=== PATIENT | female | born 1960 | race Caucasian/White ===

== ENCOUNTER 2017-01-31 10:15 | Outpatient (CLI) | payer OTHER | END 2017-01-31 10:16 | disposition home or self-care (01) | LOC: LAB.WCP 10:15 | PROVIDERS: ATTEND Family Medicine | DX: J02.9 Acute pharyngitis, unspecified (principal) | CPT/HCPCS: 87070 ==

== ENCOUNTER 2018-02-21 14:49 | Outpatient (CLI) | payer OTHER ==
[2018-02-21 19:46] LABS: BASOPHILS # (AUTO) 0.1 10^3/uL (0.0-0.1); EOSINOPHILS # (AUTO) 0.1 10^3/uL (0.0-0.7); HGB - HEMOGLOBIN 14.3 g/dL (12.0-16.0); LYMPHOCYTES # (AUTO) 2.7 10^3/uL (1.5-3.5); LYMPHOCYTES % (AUTO) 40.2 %; MEAN CORPUSCULAR HEMOGLOBIN 31.3 pg (27.0-31.0); MEAN CORPUSCULAR HGB CONC 33.9 g/dL (32.0-36.0); MEAN CORPUSCULAR VOLUME 92.4 fL (81.0-99.0); MEAN PLATELET VOLUME 8.5 fL (7.9-10.8); MONOCYTES # (AUTO) 0.6 10^3/uL (0.0-1.0); MONOCYTES % (AUTO) 8.9 %; NEUTROPHILS # (AUTO) 3.3 10^3/uL (1.5-6.6); NEUTROPHILS % (AUTO) 47.9 %; PLT - PLATELET COUNT 247 10^3/uL (130-450); RED BLOOD COUNT 4.55 10^6/uL (4.20-5.40); RED CELL DISTRIBUTION WIDTH 14.3 % (12.0-15.0); WHITE BLOOD COUNT 6.8 x10^3/uL (4.8-10.8)
[2018-02-21 19:58] LABS: ALBUMIN 4.3 g/dL (3.2-5.5); ALBUMIN/GLOBULIN RATIO 1.5 (1.0-2.2); ALKALINE PHOSPHATASE 55 IU/L (42-121); ALT ALANINE AMINOTRANSFERASE 24 IU/L (10-60); AST ASPARTATE AMINOTRANSFERASE 25 IU/L (10-42); BILIRUBIN,TOTAL 0.5 mg/dL (0.2-1.0); BUN - BLOOD UREA NITROGEN 15 mg/dL (6-20); CALCIUM 9.8 mg/dL (8.5-10.3); CARBON DIOXIDE - CO2 29 mmol/L (21-32); CHLORIDE 105 mmol/L (101-111); CHOL/HDL RATIO 4.1 (<4.4); CHOLESTEROL 194 mg/dL; CREATININE 0.9 mg/dL (0.4-1.0); GFR - MDRD 64 (>89); GLUCOSE 83 mg/dL (70-100); HDL CHOLESTEROL 47 mg/dL; LDL CHOLESTEROL,CALCULATED 117 mg/dL; LDL/HDL RATIO 2.5 (<4.4); SODIUM 140 mmol/L (135-145); TOTAL PROTEIN 7.2 g/dL (6.7-8.2); VLDL CHOLESTEROL 30 mg/dL
== END 2018-02-21 14:50 | disposition home or self-care (01) ==
LOC: LAB.WCP 14:49
PROVIDERS: ATTEND Family Medicine
DX: Z00.00 Encounter for general adult medical examination without abnormal findings (principal)
CPT/HCPCS: 36415; 80053; 80061; 83721; 84443; 85025

== ENCOUNTER 2018-03-19 13:53 | Outpatient (CLI) | payer OTHER ==
--- NOTE | 2018-03-20 13:39 | Mammography Report ---
Reason: SCREENING MAMMO Procedure Date: 03/19/2018 Accession Number: [id number] / [id number] Procedure: [facility] - Screening Mammo w/Reginald CPT Code: FULL RESULT: EXAM: Screening Mammo w/Reginald DATE: 03/19/2018 2:28 PM CLINICAL HISTORY: Routine screening TECHNIQUE: Bilateral CC and MLO views were obtained. COMPARISON: 04/13/2016, 04/25/2014, 04/13/2014, 04/19/2013 and 04/24/2012 FINDINGS: There are scattered fibroglandular densities. There is no significant interval change. No suspicious masses, clustered microcalcifications, or regions of architectural distortion are identified. Nodular densities right more numerous than left appears stable compared with priors. IMPRESSION: Benign findings RECOMMENDATION: Routine annual screening unless otherwise clinically indicated. BIRADS CATEGORY 2: Benign findings STANDARD QUALIFYING STATEMENTS: 1. This examination was not reviewed with the aid of Computer-Aided Detection (CAD). 2. A negative or benign imaging report should not delay biopsy if clinically suspicious findings are present. Consider surgical consultation if warrented. More than 5% of cancers are not identified by imaging. 3. Dense breasts may obscure an underlying neoplasm. 4. This examination was reviewed with the aid of 3D breast imaging (tomosynthesis).
== END 2018-03-19 13:54 | disposition home or self-care (01) ==
LOC: DI 13:53
DX: Z12.31 Encounter for screening mammogram for malignant neoplasm of breast (principal)
CPT/HCPCS: 77063; 77067

== ENCOUNTER 2018-04-05 12:09 | Outpatient (CLI) | payer OTHER ==
--- NOTE | 2018-04-05 14:19 | CT Report ---
Reason: NICOTINE ABUSE/DEPENDENCE Procedure Date: 04/05/2018 Accession Number: [id number] / [id number] Procedure: CT - Chest/Lung Screen Low Dose W/O CPT Code: FULL RESULT: EXAM CT LUNG SCREEN EXAM DATE: 04/05/2018 12:31 PM. HISTORY: 58-year-old patient with 28-[id number]-aocs smoking history. Currently smoking: Yes. COMPARISON: Chest with contrast 11/07/2014 12:26 PM. TECHNIQUE: CT examination of the entire thorax without contrast was performed using low-dose technique. Thin section coronal, axial, sagittal and MIP axial images were obtained. In accordance with CT protocol optimization, one or more of the following dose reduction techniques were utilized for this exam: automated exposure control, adjustment of mA and/or KV based on patient size, or use of iterative reconstructive technique. FINDINGS: Nodules: Right upper lobe: None. Right middle lobe: None. Right lower lobe: None. Left upper lobe: None. Left lower lobe: None. Emphysema: None. Pleura: Unremarkable. Aorta: Scant calcifications. Mediastinum: Unremarkable. Coronary calcifications: Mild. Other pulmonary findings: None. Other extrapulmonary findings: None. IMPRESSION: Lung-RADS ASSESSMENT CATEGORY: 0 - negative. Probability of malignancy: Not applicable. RECOMMENDATION: Recommended follow up based on Lung-RADS guidelines. RADIA
== END 2018-04-05 12:10 | disposition home or self-care (01) ==
LOC: DI 12:09
PROVIDERS: ATTEND Family Medicine
DX: Z12.2 Encounter for screening for malignant neoplasm of respiratory organs (principal); F17.210 Nicotine dependence, cigarettes, uncomplicated

== ENCOUNTER 2019-03-05 07:00 | Outpatient (CLI) | payer OTHER ==
[2019-03-05 12:27] LABS: BASOPHILS # (AUTO) 0.1 10^3/uL (0.0-0.1); BASOPHILS % (AUTO) 0.8 %; EOSINOPHILS # (AUTO) 0.2 10^3/uL (0.0-0.7); EOSINOPHILS % (AUTO) 3.1 %; HGB - HEMOGLOBIN 14.7 g/dL (12.0-16.0); LYMPHOCYTES # (AUTO) 1.6 10^3/uL (1.5-3.5); LYMPHOCYTES % (AUTO) 26.8 %; MEAN CORPUSCULAR HEMOGLOBIN 30.2 pg (27.0-31.0); MEAN CORPUSCULAR HGB CONC 31.5 g/dL (32.0-36.0); MEAN CORPUSCULAR VOLUME 95.9 fL (81.0-99.0); MEAN PLATELET VOLUME 10.4 fL (7.9-10.8); MONOCYTES # (AUTO) 0.6 10^3/uL (0.0-1.0); MONOCYTES % (AUTO) 9.3 %; NEUTROPHILS # (AUTO) 3.6 10^3/uL (1.5-6.6); NEUTROPHILS % (AUTO) 59.7 %; PLT - PLATELET COUNT 272 10^3/uL (130-450); RED BLOOD COUNT 4.86 10^6/uL (4.20-5.40); RED CELL DISTRIBUTION WIDTH 13.4 % (12.0-15.0); WHITE BLOOD COUNT 6.1 x10^3/uL (4.8-10.8)
[2019-03-05 12:53] LABS: ALBUMIN 4.1 g/dL (3.2-5.5); ALBUMIN/GLOBULIN RATIO 1.3 (1.0-2.2); ALKALINE PHOSPHATASE 56 IU/L (42-121); ALT ALANINE AMINOTRANSFERASE 13 IU/L (10-60); AST ASPARTATE AMINOTRANSFERASE 19 IU/L (10-42); BILIRUBIN,TOTAL 0.6 mg/dL (0.2-1.0); BUN - BLOOD UREA NITROGEN 11 mg/dL (6-20); CALCIUM 9.5 mg/dL (8.5-10.3); CARBON DIOXIDE - CO2 27 mmol/L (21-32); CHLORIDE 105 mmol/L (101-111); CHOL/HDL RATIO 4.9 (<4.4); CHOLESTEROL 188 mg/dL; CREATININE 0.9 mg/dL (0.4-1.0); GFR - MDRD 64 (>89); GLUCOSE 88 mg/dL (70-100); HDL CHOLESTEROL 38 mg/dL; LDL CHOLESTEROL,CALCULATED 129 mg/dL; LDL/HDL RATIO 3.4 (<4.4); SODIUM 142 mmol/L (135-145); TOTAL PROTEIN 7.2 g/dL (6.7-8.2); VLDL CHOLESTEROL 21 mg/dL
[2019-03-05 13:32] LABS: FREE T4 (FREE THYROXINE) 0.82 ng/dL (0.58-1.64)
== END 2019-03-05 23:59 | disposition home or self-care (01) ==
LOC: LAB.WCP 07:00
PROVIDERS: ATTEND Family Medicine
DX: Z00.00 Encounter for general adult medical examination without abnormal findings (principal)
CPT/HCPCS: 36415; 80053; 80061; 83721; 84439; 84443; 85025

== ENCOUNTER 2019-03-16 09:13 | Outpatient (CLI) | payer OTHER ==
--- NOTE | 2019-03-18 03:48 | Ultrasound Report ---
Reason: CAROTID ARTERIAL DISEASE Procedure Date: 03/16/2019 Accession Number: [id number] / [id number] Procedure: US - Carotid Doppler Complete CPT Code: FULL RESULT: EXAM: BILATERAL CAROTID AND VERTEBRAL ARTERY DUPLEX DOPPLER ULTRASOUND EXAM DATE: 03/16/2019 10:14 AM CLINICAL HISTORY: Carotid arterial disease. COMPARISON: None. TECHNIQUE: Grayscale imaging, color Doppler, and duplex spectral Doppler were used to evaluate the carotid and vertebral arteries bilaterally. Static images were obtained. FINDINGS: No significant plaque is identified in the right common or internal carotid arteries. There is a small amount of calcified plaque in the left common carotid artery and carotid bulb. Normal antegrade flow is present in bilateral vertebral arteries. VELOCITIES (cm/sec): Right CCA mid: PSV 69.5 cm/sec CCA dist: PSV 62.0 cm/sec ICA prox: PSV 61.2 cm/sec, EDV 19.5 cm/sec ICA mid: PSV 89.6 cm/sec, EDV 37.0 cm/sec ICA dist: PSV 94.7 cm/sec, EDV 40.5 cm/sec ECA: PSV 94.2 cm/sec Vert: PSV 67.2 cm/sec ICA/CCA: 1.4 Left CCA mid: PSV 52.6 cm/sec CCA dist: PSV 73.7 cm/sec ICA prox: PSV 65.5 cm/sec, EDV 22.8 cm/sec ICA mid: PSV 96.3 cm/sec, EDV 44.3 cm/sec ICA dist: PSV 57.7 cm/sec, EDV 27.0 cm/sec ECA: PSV 115.2 cm/sec Vert: PSV 57.8 cm/sec ICA/CCA: 1.3 ICA diameter stenosis: Right: <50% by velocity and <70% by NASCET criteria. Left: <50% by velocity and <70% by NASCET criteria. IMPRESSION: 1. Mild left carotid artery plaquing. 2. In the right carotid artery there are no elevated carotid artery velocities to suggest hemodynamically significant stenosis. 3. In the left carotid artery there are no elevated carotid artery velocities to suggest hemodynamically significant stenosis. 4. Normal antegrade flow is present in bilateral vertebral arteries. General Recommendations: Stenosis =50% ICA - Follow-up ultrasound 6-12 months Stenosis <50% ICA - High Risk Patient with plaque - Follow-up ultrasound 1-2 years Normal Study but High Risk Patient - Follow-up ultrasound 3-5 years Management recommendations and diagnostic criteria are based on current IAC endorsed standards in Carotid Artery Stenosis: Grayscale and Doppler Ultrasound Diagnosis. Validated velocity measurements with angiographic measurements and velocity criteria are extrapolated from diameter data as defined by the Society of Radiologists in Ultrasound Consensus Conference Radiology 2003; 229;340-346. RADIA
== END 2019-03-16 09:14 | disposition home or self-care (01) ==
LOC: DI 09:13
PROVIDERS: ATTEND Family Medicine
DX: I77.9 Disorder of arteries and arterioles, unspecified (principal); F17.200 Nicotine dependence, unspecified, uncomplicated
CPT/HCPCS: 93880

== ENCOUNTER 2019-03-26 09:43 | Outpatient (CLI) | payer OTHER ==
--- NOTE | 2019-03-26 11:39 | Mammography Report ---
Reason: SCREENING MAMMO Procedure Date: 03/26/2019 Accession Number: [id number] / [id number] Procedure: [facility] - Screening Mammo w/Reginald CPT Code: FULL RESULT: EXAM: Screening Mammo w/Reginald DATE: 03/26/2019 10:13 AM CLINICAL HISTORY: Routine screening TECHNIQUE: (B) - Bilateral CC and MLO views were obtained. COMPARISON: 03/19/2018, 04/13/2016, 04/14/2015, 04/25/2014, 04/19/2013, 04/24/2012, 12/21/2011, 04/18/2011 and 04/15/2010 PARENCHYMAL PATTERN: (A) - The breasts demonstrate scattered fibroglandular densities bilaterally. FINDINGS: No significant interval change. There are no suspicious masses, calcifications, or areas of distortion. IMPRESSION: Negative examination. BI-RADS category 1. RECOMMENDATION: (ANNUAL) - Recommend routine annual screening mammography. BI-RADS CATEGORY: (1) - Negative. STANDARD QUALIFYING STATEMENTS: 1. This examination was not reviewed with the aid of Computer-Aided Detection (CAD). 2. A negative or benign imaging report should not preclude biopsy if clinically suspicious findings are present. 3. Dense breasts may obscure an underlying neoplasm. 4. This examination was reviewed with the aid of 3D breast imaging (tomosynthesis).
== END 2019-03-26 09:44 | disposition home or self-care (01) ==
LOC: DI 09:43
DX: Z12.31 Encounter for screening mammogram for malignant neoplasm of breast (principal)
CPT/HCPCS: 77063; 77067

== ENCOUNTER 2019-04-02 07:36 | Outpatient (CLI) | payer OTHER ==
--- NOTE | 2019-04-02 16:10 | CT Report ---
Reason: NICOTINE ABUSE/DEPENDENCE Procedure Date: 04/02/2019 Accession Number: [id number] / [id number] Procedure: CT - Low Dose Lung Cancer Screen CPT Code: Final Report FULL RESULT: EXAM CT LUNG SCREEN EXAM DATE: 04/02/2019 07:54 AM. HISTORY: 59-year-old patient with 87-enkv-able smoking history. Currently smoking: Yes. COMPARISON: Chest screen low dose w/o 04/05/2018 12:23 PM. TECHNIQUE: CT examination of the entire thorax without contrast was performed using low-dose technique. Thin section coronal, axial, sagittal and MIP axial images were obtained. In accordance with CT protocol optimization, one or more of the following dose reduction techniques were utilized for this exam: automated exposure control, adjustment of mA and/or KV based on patient size, or use of iterative reconstructive technique. FINDINGS: Nodules: Right upper lobe: 5 mm right apical nodule image 25 series 4. 3 mm nodule image 36. 3 mm nodule image 59. Right middle lobe: None. Right lower lobe: 2 mm nodule image 72. Left upper lobe: 3 mm nodule image 69. Left lower lobe: 3 mm nodule image 65. Emphysema: Mild. Pleura: Unremarkable. Aorta: Scant calcifications. Mediastinum: Unremarkable. Coronary calcifications: Mild. Other pulmonary findings: None. Other extrapulmonary findings: None. IMPRESSION: Lung-RADS ASSESSMENT CATEGORY: 2 - benign appearance or behavior. Probability of malignancy: Less than 1%. RECOMMENDATION: Continue annual low-dose chest CT. RADIA
== END 2019-04-02 07:37 | disposition home or self-care (01) ==
LOC: DI 07:36
PROVIDERS: ATTEND Family Medicine
DX: Z12.2 Encounter for screening for malignant neoplasm of respiratory organs (principal); F17.200 Nicotine dependence, unspecified, uncomplicated

== ENCOUNTER 2019-05-20 14:19 | Outpatient (CLI) | payer OTHER ==
[2019-05-20 22:28] VITALS: BP 136/96
--- NOTE | 2019-05-20 22:28 | SLEEP CARE CONSULTATION ---
Information from patient questionnaire entered by Juana Brantley. I have reviewed and concur with the information entered by Juana Brantley. This document represents the service I personally performed and the decisions made by me, Maria Luisa Maldonado MD, [facility]. History of Present Illness Reason for Visit: New patient, Previously diagnosed sleep apnea, Re-establish care Additional HPI information: I had the pleasure of seeing Ms. Baird and her boyfriend today regarding the possibility of her having a sleep disorder. As you know, she is a 48-year-old lady who complains of insomnia, snoring, frequent awakenings at night, unrefreshed sleep, excessive daytime sleepiness and fatigue. She had an in- laboratory polysomnography here in 2008 that showed mild obstructive sleep apnea-hypopnea (AHI was 6.6). She was prescribed a CPAP set at 10 cmH2O. She used it occasionally and stopped in 2010 due to claustrophobia. She has [employer]Med AirFit P-10 nasal pillows. She restarted December of this year. She quit again after a month because of tooth infection. She did not feel significantly better on the treatment. [employer] was her durable medical supplier. Without the CPAP, she continues to snore. She complains of fatigue. However, she sleeps alone. Subjective Initial [place] Sleepiness Scale score: 10 Past Medical History Past Medical History: reports: Anxiety, GERD Social History The patient's occupation is a [employer] [place]. Patient is Single and lives in [place]. Allergies and Home Medications Drug allergies reviewed: Yes Home medication list reviewed: Yes Allergy and home medication list: Current Medications: famotidine Allergies: no known drug allergies Review of Systems Cardiovascular: denies: high blood pressure, palpitations, chest pain, irregular heart rate or pulse, leg or foot swelling, have to sleep sitting up, other Respiratory: denies: shortness of breath, wheeze, sputum production, chronic cough, other Urinary: denies: incontinence, frequency, urgency, impotence, other Neurological: denies: headaches, seizure, head trauma, disorientation, speech dysfunction, gait or balance problems, fainting or unconsciousness, other Ear/Nose/Throat: denies: nasal congestion, sinus problems, nose bleeds, dry mouth/throat, hoarseness, injury to nose, tonsillectomy, wisdom teeth removed, other Endocrine: denies: thyroid disease, history of goiter, sluggishness, too hot or cold, excessive thirst, increased appetite, increased urination, unexplained weakness, other Musculoskeletal: denies: joint pain, neck pain, back pain, joint swelling, muscle pain or cramping, mobility problems, other Immunologic: denies: sneezing, rash, itching, allergies to food or environment, other Physical Exam Vital signs obtained and entered by: Dr. Maldonado Blood Pressure: 136/96 Cuff size: regular Heart Rate: 73 O2 Saturation: 97 Height: 5 ft 4 in Weight: 163 lb Body Mass Index: 27.9 BMI Classification: Overweight Neck circumference: 16 Mood/affect: normal HEENT: No craniofacial malformation Nostrils: patent to airflow Turbinates: normal Septum: midline Mouth and throat: narrow oropharynx Soft palate: long Hard palate: normal Uvula: normal Uvula visualization: 50% Mallampati Class II Tongue: normal in size Tonsils: small Chin and jaw: normal size and position Neck: normal w/o lymphadenopathy or thyromegaly Heart: regular rate and rhythm Lungs: clear bilaterally Abdomen: soft, non-tender Extremities: no edema or clubbing Neurologic: intact, no focal deficits Impression and Plan IMPRESSION: 1. Obstructive Sleep Apnea-Hypopnea Syndrome, mild, as previously diagnosed, presently untreated. She no longer gets supplies from [employer]. She continues to snore. I will repeat the in-laboratory polysomnography to see if she needs to use CPAP again. Plan: 1. Schedule polysomnography 2. Avoid long distance driving or when feeling sleepy. 3. Avoid alcohol, sedative and muscle relaxant around bedtime. 4. Attempt to lose weight. 5. Return for followup after the sleep study. I spent 100% of this visit face to face with the patient with greater than 50% of this was spent time counseling the patient and coordination of care.
== END 2019-05-20 14:20 | disposition home or self-care (01) ==
LOC: SC 14:19
PROVIDERS: ATTEND Internal Medicine Pulmonary Disease
DX: G47.33 Obstructive sleep apnea (adult) (pediatric) (principal)
CPT/HCPCS: 99203; 99212

== ENCOUNTER 2019-06-14 20:24 | Outpatient (CLI) | payer OTHER | END 2019-06-14 20:25 | disposition home or self-care (01) | LOC: SC 20:24 | PROVIDERS: ATTEND Internal Medicine Pulmonary Disease | DX: G47.33 Obstructive sleep apnea (adult) (pediatric) (principal) | CPT/HCPCS: 95810 ==

== ENCOUNTER 2019-07-15 09:10 | Outpatient (CLI) | payer OTHER ==
[2019-07-15 10:24] VITALS: BP 120/72
--- NOTE | 2019-07-15 10:24 | SLEEP CARE CONSULTATION ---
Information from patient questionnaire entered by Arlet Estes. I have reviewed and concur with the information entered by Arlet Estes. This document represents the service I personally performed and the decisions made by me, Evy Jackson, RN, MSN, MARKET SURVEY REPRESENTATIVE. History of Present Illness Reason for follow up: with sleep study (to restart therapy) Equipment type: CPAP Equipment obtained from: [facility] (stopped getting equipment several years ago) Prior sleep studies: Yes HPI additional information: DAHLIA MISHRA returns with partner for follow up and results of the recently performed polysomnography. I explained the pathophysiology behind obstructive sleep apnea. We then spent quite a bit of time discussing different treatment options. For mild obstructive sleep apnea, surgery and oral appliance are alternatives to nasal CPAP therapy but in moderate or severe cases, nasal CPAP is the most effective and reliable treatment. I reviewed the impact of weight changes on sleep apnea and strongly recommended losing weight. After some discussion, the patient opted to go with the nasal CPAP therapy. Nasal autoCPAP set at [id number] will be ordered with rationale explained. A manual titration study will be ordered if unable to find optimal pressure with office adjustments. I explained how CPAP machine works with sample devices [employer] Dreamstation and [employer] [id number] and what to expect when using the machine. Using CPAP every night in order to get used to it was emphasized. Patient advised to put CPAP mask on before getting into bed so as not to fall asleep without CPAP. To assist acclimation to CPAP use, it could also be used for a short time during day while reading or watching TV. The patient was instructed to call the CPAP supplier to discuss any mechanical problem that may occur. If the mask given is uncomfortable or is difficult to keep on through the night even with adjustment, contact the CPAP supplier as many will replace with another mask style if notified before 30 days. If snoring or perceives is not getting enough air or too much air from the machine, notify this office. AAS patient education PAP tips reviewed and given to patient. Dreamstation preferred by patient. Patient counseled not drink alcohol less than 4 hours before bedtime as it can increase snoring and apnea. Patient was cautioned about risks of drowsy driving until sleepiness symptoms resolve. Patient denies drowsy driving. AAS patient education on snoring and sleep apnea reviewed. Sleep Study - Results Polysomnography/Home Sleep Study results: The quality of the study is good. The patient had slightly reduced sleep efficiency due to frequent awakenings after the sleep onset. The sleep architecture was abnormal for sleep fragmentation and reduced amount of time spent in slow wave sleep (N3). Respiratory monitoring showed moderate obstructive sleep apnea-hypopnea (AHI = 18.2) associated with frequent arousals, oxyhemoglobin desaturation and moderate hypoxia (jumana oxygen saturation of 77%). Baseline oxygen saturation was normal. The respiratory events occurred mainly during supine sleep (supine AHI = 33.8; non-supine = 10.82). Snore was loud in intensity. There was no significant periodic leg movement of sleep. Cardiac rhythm was normal sinus rhythm without significant arrhythmia. No abnormal behavior (parasomnia) observed during the night. Subjective Initial [place] Sleepiness Scale score: 10 Current [place] Sleepiness Scale score: 9 Allergies and Home Medications Known drug allergies: No Home medication list reviewed: Yes (zantac stopped) Allergy and home medication list: famotidine twice daily as needed trazadone prn insomnia from anxiety Review of Systems Review of systems same as previous: No (dental implant in process ) Physical Exam Blood Pressure: 120/72 Cuff size: regular Heart Rate: 93 O2 Saturation: 98 Height: 5 ft 4 in Weight: 168 lb 9.6 oz Body Mass Index: 28.9 BMI Classification: Overweight Impression and Plan 1. Obstructive Sleep Apnea-Hypopnea Syndrome, moderate, with lowest oxygen saturation of 77%. Obviously this is the cause of the patients symptoms of unrefreshed sleep, and excessive daytime sleepiness. Positive pressure therapy could benefit GERD . As mentioned above, the patient will be started on nasal autoCPAP therapy with pressure set at 4-15 cmH2O. A manual titration study will be completed if unable to find optimal treatment pressure with office ad justments. Compliance guidelines also reviewed. A copy of compliance guidelines will be given for reference at check out. Because the apnea is more severe supine, I instructed to avoid sleeping supine using pillow positioning until able to start CPAP use. * Nasal auto CPAP therapy, pressure at 4-15 cm H2O. * Attempt to lose weight. * Avoid alcohol consumption near bedtime. * Avoid supine sleep until using CPAP. * The patient is again cautioned about driving until sleepiness completely resolves. * Return one month after CPAP obtained. I will assess response to therapy and compliance at that time. Time Spent with Patient (minutes): 35 I spent 100% of this visit face to face with the patient with greater than 50% of this was spent time counseling the patient and coordination of care.
== END 2019-07-15 09:11 | disposition home or self-care (01) ==
LOC: SC 09:10
PROVIDERS: ATTEND Nurse Practitioner Family
DX: G47.33 Obstructive sleep apnea (adult) (pediatric) (principal); E66.3 Overweight; Z68.28 Body mass index [BMI] 28.0-28.9, adult
CPT/HCPCS: 99212; 99214

== ENCOUNTER 2019-09-16 16:56 | Outpatient (CLI) | payer OTHER ==
--- NOTE | 2019-09-16 11:30 | SLEEP CARE CONSULTATION ---
Information from patient questionnaire entered by Arlet Estes. I have reviewed and concur with the information entered by Arlet Estes. This document represents the service I personally performed and the decisions made by me, Evy Jackson, RN, MSN, RADIAL SAW OPERATOR. History of Present Illness Service Date and Time: 09/16/2019 1100 Previous diagnosis: Moderate, Obstructive Sleep Apnea-Hypopnea Syndrome AHI: 18.2 Reason for follow up: first compliance (after restarting CPAP -stopped in 2010) Equipment obtained from: [employer] Mask style: Nasal pillows (Dreamwear) Backup mask available: No (keep current as a spare) Last cushion change: none since set up Prior sleep studies: Yes Type of Sleep Study: Polysomnography CPAP Compliance Data - Data Reviewed with Patient Average duration of nightly device use: 5h 42m Compliance rate %: 80 Current pressure setting (cmH2O): 4-15 Humidity settin Heated hose settin Average residual AHI: 6.1 (mean 6.7cm and 90% 8.9cmH20) Central apnea: 1.6 Obstructive apnea: 1.1 Hypopnea: 3.4 Average large leak: 6s Subjective Missed days of use due to: reports: illness Patient concerns: reports: nasal congestion (slight before bed), dry mouth, nose, throat (a couple times a week ). denies: aerophagia, mask discomfort, air blowing in eyes, mask leak noise, condensation in mask/hose, epistaxis, other Observed to snore while using device: No Current pressure setting perceived as: comfortable On therapy, patient: reports: sleeping better, more rested overall (and healthier feeling). denies: drowsiness while driving Initial [place] Sleepiness Scale score: 10 Current [place] Sleepiness Scale score: 4 Allergies and Home Medications Home medication list reviewed: No (no changes stated) Review of Systems Review of systems same as previous: Yes Physical Exam Height: 5 ft 4 in Impression and Plan 1. Obstructive Sleep Apnea-Hypopnea Syndrome, moderate, with good treatment compliance and slightly elevated AHI ap. On CPAP therapy, the patient has better sleep quality and is more rested overall. The patients pressure will be changed to autoCPAP 7-15 cmH20 For elevation of residual AHI. Patient advised to contact me if pressure change is uncomfortable so that it can be adjusted. She was also instructed how to use the ramp feature at initiation of treatment if needed. Goals for apnea control discussed. Nasal congestion can be reduced with increasing the CPAP humidity as shown on sample device. The heated hose can be adjusted higher if condensation with higher humidity setting. Saline nasal spray sample was also given to use prior to CPAP to clear nasal secretions and wash off any nasal allergens to facilitate nasal breathing. In addition, a steamy shower before bed will often assist nasal drainage. Patient instructed how to change the humidity settings verbally. She was advised to check the manual for reference or contact [facility] if unable to change settings as discussed. In addition the importance of changing her nasal pillows regularly for comfort / seal was discussed. She has a supply replacement sheet from [employer] and has number to call. Patient's apnea severity and rationale for treatment to reduce apnea, improve sleep quality and reduce hypertension, cardiovascular and cerebrovascular events was reviewed. Since supine apnea is severe supine and mild non supine, she is advised to avoid supine sleep with pillow positioning if unable to use CPAP. I also discussed how her weight affects her apnea risk and CPAP pressure requirements. * Change CPAP pressure to 7-15 cmH2O * Implement methods to reduce nasal congestion. * Notify me if snoring with mask or feeling that the pressure is too much or too little * Do not gain weight * Call this office if any problems using CPAP * Return for follow up in 3 months , or sooner if concerns arise Visit Type: Telehealth Phone (to minimize the risk of COVID 19 exposure and agrees to have insurance billed.) Patient Location: Home Location of Provider: Home Patient agrees and consents to this telehealth visit type: Yes Time Spent with Patient (minutes): 23 Provider Statement: I spent 100% of the Telehealth Phone Call with the patient with greater than 50% spent counseling the patient and coordination of care.
== END 2019-09-16 16:57 | disposition home or self-care (01) ==
LOC: SC 16:56
PROVIDERS: ATTEND Nurse Practitioner Family
DX: G47.33 Obstructive sleep apnea (adult) (pediatric) (principal)

== ENCOUNTER 2019-11-24 09:47 | Outpatient (CLI) | payer OTHER | END 2019-11-24 09:48 | disposition critical access hospital (66) | LOC: EMS 09:47 | PROVIDERS: ATTEND Surgery | DX: S99.912A Unspecified injury of left ankle, initial encounter (principal); W01.0XXA Fall on same level from slipping, tripping and stumbling without subsequent striking against object, initial encounter; Y93.01 Activity, walking, marching and hiking; Y92.008 Other place in unspecified non-institutional (private) residence as the place of occurrence of the external cause | CPT/HCPCS: A0425; A0427 ==

== ENCOUNTER 2019-11-24 10:02 | Day surgery (SDC) | payer OTHER ==
--- NOTE | 2019-11-24 10:21 | ED Physician Documentation ---
PD HPI LOWER EXT INJURY - Stated complaint Stated Complaint: ANKLE FX - Chief complaint Chief Complaint: Trauma Ext - History obtained from History obtained from: Patient, EMS - History of Present Illness PD HPI LOW EXT INJURY LOCATION: Left, Ankle Type of injury: Fall Where injury occurred: Home Timing - onset: Today Timing - duration: Minutes Timing - details: Abrupt onset, Still present Improved by: Rest, Immobilization Worsened by: Moving, Palpating Associated symptoms: Swelling. No: Weakness, Numbness, Tingling Contributing factors: No: Anticoagulated Similar symptoms before: Has not had sx before Recently seen: Not recently seen - Additional information Additional information: Previously well 59-year-old female went out onto her deck this morning and forgot that she had taken away a a 4 foot x 6 foot section of her deck to get to access her hot tub. She fell into this hole which goes down about 4 feet. She felt that she hit her ankle on the deck itself when she was falling into the hole and she is injured both her right elbow and her left ankle she noted her left ankle was deformed and she crawled into her house after crawling out of the hole was able to get her son to call the ambulance to bring her to the hospital. She reports that she has not been ill recently and was having a normal morning when this occurred. She really just wanted to shoo the crows away and have another cup of coffee. Review of Systems Constitutional: denies: Fever Eyes: denies: Decreased vision Ears: denies: Ear pain Nose: denies: Rhinorrhea / runny nose, Congestion Throat: denies: Sore throat Cardiac: denies: Chest pain / pressure, Palpitations Respiratory: denies: Dyspnea, Cough GI: denies: Abdominal Pain, Nausea, Vomiting, Constipation, Diarrhea : denies: Dysuria, Frequency PD PAST MEDICAL HISTORY - Past Medical History Past Medical History: Yes Cardiovascular: None Respiratory: Sleep apnea, CPAP use Endocrine/Autoimmune: None GI: GERD : None HEENT: None Psych: Anxiety Musculoskeletal: None Derm: None - Past Surgical History Past Surgical History: Yes 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, Tubal ligation - Present Medications Home Medications: Ambulatory Orders Medication Instructions Recorded Confirmed Ibuprofen [Advil] 200 mg PO Q24HR@2100 05/19/14 11/07/14 Omeprazole [Prilosec] 20 mg PO DAILY 05/19/14 11/07/14 Hydrocodone/Acetaminophen 1 - 2 each PO Q6H PRN #15 tablet 11/07/14 [Hydrocodon-Acetaminophen 5-325] Naproxen [Naprosyn] 500 mg PO BID #20 tablet 11/07/14 - Allergies Allergies/Adverse Reactions: Allergies Allergy/AdvReac Type Severity Reaction Status Date / Time No Known Drug Allergies Allergy Verified 11/24/19 10:08 - Social History Does the pt smoke?: Yes Smoking Status: Current every day smoker Does the pt drink ETOH?: Yes Does the pt have substance abuse?: No - Immunizations Immunizations: TDAP >10years/unknown - POLST Patient has POLST: No PD ED PE NORMAL - Vitals Vital signs reviewed: Yes (hypertensive mild ) - General General: Alert and oriented X 3, No acute distress, Well developed/nourished - HEENT HEENT: Atraumatic, PERRL, EOMI, Other (no pain to deep palpation of the entire skull and cervical spine. ) - Neck Neck: Supple, no meningeal sign, No bony TTP - Respiratory Respiratory: No respiratory distress, Other (no chest wall tenderness) - Abdomen Abdomen: Soft, Non tender - Back Back: No CVA TTP, No spinal TTP - Derm Derm: Normal color, Warm and dry, No rash - Extremities Extremities: Other (There is fracture deformity to the left ankle with the foot deviated laterally and swelling both medial and lateral. Distal neurovascular components are intact.) - Neuro Neuro: Alert and oriented X 3, firmware engineer 2-12 intact, No motor deficit, No sensory deficit, Normal speech Eye Opening: Spontaneous Motor: Obeys Commands Verbal: Oriented GCS Score: 15 - Psych Psych: Normal mood, Normal affect Results - Vitals Vitals: Vital Signs - 24 hr 11/24/19 11/24/19 11/24/19 10:09 10:13 12:13 Temperature 36.5 C 36.5 C Heart Rate 82 82 86 Respiratory 16 16 16 Rate Blood Pressure 127/84 H 127/84 H 145/85 H O2 Saturation 100 100 96 Oxygen O2 Source Room air - Rads (name of study) ankle Radiology: Prelim report reviewed (Impression: Comminuted distal fibular fracture extending to articular surface, displaced medial malleolus fracture, disruption of ankle mortise. ), EMP read indepedently, See rad report Elbow Radiology: Prelim report reviewed (Impression: No acute bony abnormality of the right elbow.), EMP read indepedently, See rad report PD MEDICAL DECISION MAKING - ED course Complexity details: reviewed old records, reviewed results, re-evaluated patient, considered differential, d/w patient, d/w customer care consultant (Riya: recommends reduction and splinting with follow up with [facility] unless approved to do surgery here. Dr. Ma triage doctor for [place] has approved surgery to be done here. ) ED course: 59-year-old female with a fall of approximately 4 feet has a fracture dislocation of her left ankle which will require surgical fixation. She is maintained in a cardboard splint here and she is administered Toradol 30 mg intravenously for pain control which works well. Dr. Geovanny Ritter is consulted in the case and will review the case for appropriateness of surgical fixation here. Departure - Departure Disposition: ED Transfer to [facility] Clinical Impression: Displaced bimalleolar fracture of left ankle Qualifiers: Encounter type: initial encounter Fracture type: closed Qualified Code(s): S82.842A - Displaced bimalleolar fracture of left lower leg, initial encounter for closed fracture Condition: Stable
[2019-11-24] MEDS ORDERED: KETOROLAC 30 MG/ML VIAL IVP STA (10:24)
--- NOTE | 2019-11-24 10:49 | XRAY Report ---
PROCEDURE: Ankle 3 View LT INDICATIONS: fracture dislocation TECHNIQUE: 3 views of the ankle were acquired. COMPARISON: None FINDINGS: Bones: Comminuted, mildly displaced distal fibular fracture involving the distal shaft and extending to the articular surface. Displaced medial malleolar fracture. Disruption of the ankle mortise. Soft tissues: Achilles tendon appears normal. IMPRESSION: Comminuted distal fibular fracture extending to articular surface, displaced medial mall eolar fracture, disruption of ankle mortise. Reviewed by: Luke Dean MD on 11/24/2019 9:47 AM FITO Approved by: Luke Dean MD on 11/24/2019 9:47 AM FITO Station ID: [id number]
--- NOTE | 2019-11-24 10:49 | XRAY Report ---
PROCEDURE: Elbow 3 View RT INDICATIONS: lateral epicondyle contusion TECHNIQUE: 3 views of the elbow were acquired. COMPARISON: None FINDINGS: Bones: No fractures or dislocations. No suspicious bony lesions. Soft tissues: No elbow joint effusion. No suspicious soft tissue calcifications. IMPRESSION: No evidence acute bony abnormality of the right elbow. Reviewed by: Luke Dean MD on 11/24/2019 9:48 AM FITO Approved by: Luke Dean MD on 11/24/2019 9:48 AM FITO Station ID: [id number]
[2019-11-24] MEDS ORDERED: ONDANSETRON 4 MG/2 ML VIAL IVP ONE (12:56)
[2019-11-24] MEDS ORDERED: KETOROLAC 30 MG/ML VIAL IVP ONE (12:56)
[2019-11-24] MEDS ORDERED: DEXAMETHASONE 4 MG/ML VIAL IVP ONE (12:56)
[2019-11-24] MEDS ORDERED: ePHEDrine 50 MG/ML VIAL IVP ONE (12:56)
[2019-11-24] MEDS ORDERED: MIDAZOLAM 2 MG/2 ML VIAL IVP ONE (12:56)
[2019-11-24] MEDS ORDERED: HYDROmorphone 1 MG/ML CARPUJECT IVP ONE (12:56)
[2019-11-24] MEDS ORDERED: PROPOFOL 200 MG/20 ML VIAL IVP ONE (12:56)
[2019-11-24] MEDS ORDERED: fentaNYL 100 MCG/2 ML VIAL IVP ONE (12:56)
[2019-11-24 13:04] LABS: BASOPHILS # (AUTO) 0.1 10^3/uL (0.0-0.1); BASOPHILS % (AUTO) 0.6 %; EOSINOPHILS # (AUTO) 0.1 10^3/uL (0.0-0.7); EOSINOPHILS % (AUTO) 0.6 %; HGB - HEMOGLOBIN 14.2 g/dL (12.0-16.0); LYMPHOCYTES # (AUTO) 1.7 10^3/uL (1.5-3.5); LYMPHOCYTES % (AUTO) 13.9 %; MEAN CORPUSCULAR HEMOGLOBIN 30.7 pg (27.0-31.0); MEAN CORPUSCULAR HGB CONC 32.7 g/dL (32.0-36.0); MEAN CORPUSCULAR VOLUME 93.7 fL (81.0-99.0); MONOCYTES # (AUTO) 0.7 10^3/uL (0.0-1.0); NEUTROPHILS # (AUTO) 9.6 10^3/uL (1.5-6.6); NEUTROPHILS % (AUTO) 78.3 %; PLT - PLATELET COUNT 263 10^3/uL (130-450); RED BLOOD COUNT 4.63 10^6/uL (4.20-5.40); RED CELL DISTRIBUTION WIDTH 13.7 % (12.0-15.0); WHITE BLOOD COUNT 12.3 x10^3/uL (4.8-10.8)
[2019-11-24 13:16] LABS: ALBUMIN 4.1 g/dL (3.2-5.5); ALBUMIN/GLOBULIN RATIO 1.5 (1.0-2.2); BILIRUBIN,TOTAL 0.6 mg/dL (0.2-1.0); CALCIUM 9.1 mg/dL (8.5-10.3); TOTAL PROTEIN 6.9 g/dL (6.7-8.2)
--- NOTE | 2019-11-24 13:33 | ANESTHESIA ---
Pre-Anesthesia VS, & Labs - Diagnosis left ankle bimalleolar fracture - Procedure ORIF left ankle Vital Signs: Temp Pulse Resp BP Pulse Ox 36.5 C 86 16 145/85 H 96 11/24/19 10:13 11/24/19 12:13 11/24/19 12:13 11/24/19 12:13 11/24/19 12:13 Height 5 ft 4 in Weight (kg) 76 kg Body Mass Index 28.8 - NPO >8 hours - Is Patient ?: No - Lab Results Current Lab Results: Laboratory Tests 11/24/19 12:37: Sodium 139, Potassium 3.9, Chloride 103, Carbon Dioxide 28, Anion Gap 8.0, BUN 14, Creatinine 1.0, Estimated GFR (MDRD) 57 L, Glucose 99, Calcium 9.1, Total Bilirubin 0.6, AST 19, ALT 15, Alkaline Phosphatase 58, Total Protein 6.9, Albumin 4.1, Globulin 2.8, Albumin/Globulin Ratio 1.5, Lipase 29 11/24/19 12:37: WBC 12.3 H, RBC 4.63, Hgb 14.2, Hct 43.4, MCV 93.7, MCH 30.7, MCHC 32.7, RDW 13.7, Plt Count 263, MPV 10.0, Neut # (Auto) 9.6 H, Lymph # (Auto) 1.7, [place] # (Auto) 0.7, Eos # (Auto) 0.1, Baso # (Auto) 0.1, Absolute Nuc leated RBC 0.00, Nucleated RBC % 0.0 Lab results reviewed: Yes Fish Bones: 11/24/19 12:37 11/24/19 12:37 Home Medications and Allergies Ibuprofen [Advil] 200 mg PO Q24HR@2100 05/19/14 Omeprazole [Prilosec] 20 mg PO DAILY 05/19/14 Allergies/Adverse Reactions: Allergies Allergy/AdvReac Type Severity Reaction Status Date / Time No Known Drug Allergies Allergy Verified 11/24/19 10:08 Anes History & Medical History - Anesthetic History Anesthesia Complications: reports: No previous complications Family history of Anesthesia Complications: Denies Family history of Malignant Hyperthermia: Denies - Medical History Cardiovascular: reports: None Pulmonary: reports: Sleep apnea, CPAP use Gastrointestinal: reports: GERD Urinary: reports: None Musculoskeletal: reports: None Endocrine/Autoimmune: reports: None Skin: reports: None Smoking Status: Current every day smoker - Surgical History General: EGD Gynecologic: section, Tubal ligation Exam General: Alert, Oriented x3, Cooperative Dental: WNL Mouth Opening: Greater than 4 Fingerbreadths Neck Mobility: Normal Mallampati classification: II Thyromental Distance: 4-6 cm Respiratory: Lungs clear Cardiovascular: Regular rate Plan Anesthesia Type: General, Popliteal Block Consent for Procedure(s) Verified and Reviewed: Yes Code Status: Attempt Resuscitation ASA classification: 2-Mild systemic disease Is this case an emergency?: Yes
[2019-11-24] MEDS ORDERED: PROPOFOL 500 MG/50 ML 500 MG/50 ML VIAL ONE (13:46)
[2019-11-24 14:07] LABS: BILIRUBIN,URINE NEGATIVE (NEGATIVE); GLUCOSE, URINE (UA) NEGATIVE (NEGATIVE); KETONES,URINE (UA) TRACE mg/dL (NEGATIVE); LEUKOCYTE ESTERASE, URINE SMALL (NEGATIVE); NITRITE,URINE NEGATIVE (NEGATIVE); OCCULT BLOOD,URINE TRACE-INTA (NEGATIVE); PH,URINE 6.5 PH (5.0-7.5); PROTEIN,URINE NEGATIVE (NEGATIVE); UROBILINOGEN,URINE 0.2 (NORMAL) E.U./dL (NORMAL)
[2019-11-24 14:10] LABS: CLARITY,URINE HAZY (CLEAR)
[2019-11-24 14:27] LABS: BACTERIA,URINE Many /HPF (None Seen); MUCUS,URINE Marked Strands; RBC,URINE 0-5 /HPF (0-5); SQUAMOUS EPITHELIAL CELL,UR MANY Squamous (<= Few)
[2019-11-24] MEDS ORDERED: SODIUM CHLORIDE 0.9% 1,000 ML IV ONE ×3 (15:08→16:04)
[2019-11-24] MEDS ORDERED: oxyCODONE 5 MG TABLET PO PRN (16:11)
[2019-11-24] MEDS ORDERED: HYDROmorphone 0.5 MG/0.5 ML SYRINGE IVP PRN (16:11)
[2019-11-24] MEDS ORDERED: ONDANSETRON 4 MG/2 ML VIAL IVP PRN (16:11)
--- NOTE | 2019-11-24 16:13 | XRAY Report ---
Reason: IMPLANT PLACEMENT Procedure Date: 11/24/2019 Accession Number: [id number] / [id number] Procedure: FL - OR C-Arm Procedure CPT Code: Final Report FULL RESULT: PROCEDURE: OR C-Arm Procedure INDICATIONS: IMPLANT PLACEMENT TECHNIQUE: 2 operative fluoroscopic images obtained COMPARISON: Preoperative left ankle films dated 11/24/2019. FINDINGS: 2 C-arm images were obtained during distal fibula and medial malleolar ORIF. The distal fibula has been transfixed with a sideplate and multiple screws. The medial malleolus has been fixated using 2 orthopedic screws. There is near overall anatomic alignment. The ankle mortise is grossly intact. IMPRESSION: Operative fluoroscopy utilized during bimalleolar ORIF. Near-anatomic alignment. Religious of the ankle mortise. Reviewed by: Luke Dean MD on 11/24/2019 3:12 PM FITO Approved by: Luke Dean MD on 11/24/2019 3:12 PM FITO Station ID: [id number]
--- NOTE | 2019-11-24 17:04 | OPERATIVE REPORT ---
DATE OF SERVICE: 11/24/2019 Physician: Geovanny Ritter MD PREOPERATIVE DIAGNOSIS: Closed, unstable left bimalleolar ankle fracture. POSTOPERATIVE DIAGNOSIS: Closed, unstable left bimalleolar ankle fracture. PROCEDURE PERFORMED: Open reduction and internal fixation of left ankle fracture utilizing a postero lateral locking distal fibular plate with screws; two 4.0 mm cannulated and interfragmentary screw fi xation on the medial malleolus. SURGEON: Geovanny Ritter MD ANESTHESIA: General with a popliteal block. DESCRIPTION OF PROCEDURE: The patient was taken to the operating room on the afternoon of 11/24/2019 where she was placed under a general anesthetic. As we were waiting for the air circulation to be c ompleted because her COVID-19 status was unknown, a popliteal fossa peripheral block was also given t o the patient. The left leg was then prepped and draped in the usual fashion for the procedure after a thigh pneumat ic tourniquet had been placed on the left leg. The tourniquet was not inflated during the case, [facility] er. Making a lateral skin incision about the ankle, we dissected down to her distal fibular fracture . There was some comminution appreciated at the fracture site with a butterfly fragment that was min imally displaced. The fracture reduced nicely once the angulation was corrected. We then placed a l yaneli posterolateral locking plate from the VLP tray from the [employer] fracture set along the l ateral aspect of the reduced distal fibular fracture. Fluoroscopic views showed that the fracture wa s nearly anatomically reduced and out to length with the selected plate to be a proper length spannin g this fracture. Satisfied with this, we then held the fracture in place with a towel clip reduction clamp to hold the reduction. We then proceeded to place screws to anchor the plate against the late ral aspect of the distal fibula, putting the appropriate length locking screw in the proximal 4 holes proximal to the fracture and then 4 additional screws placed in the distal portion of our plate. Fl uoroscopic view again showed good reduction of our fracture in AP and lateral projections and satisfa ctory placement of our hardware. We then directed our attention medially. Through a small longitudinal skin incision over the medial malleolus, we dissected down to the fracture. Minimal fracture hematoma was removed. Using towel cl ip reduction clamp, we were able to obtain a good reduction of our fracture in the operating room. F luoroscopic view also confirmed the good reduction of our fracture. We then proceeded to insert 2 pa rallel threaded-tipped guidewires from the 4.0 cannulated screw set in an oblique fashion spanning ou r reduced fracture. Direct measuring guide was used and we determined we would use 42 mm length 4.0 cancellous cannulated screws. The cannulated drill was then drilled over our inserted guide pin. We then proceeded to insert our selected cannulated screws manually over our guide pin. The guide pins were removed. Fluoroscopic permanent films were then obtained with the mortise view and lateral of the ankle, showing a good ankle reduction and satisfactory placement of hardware. We then irrigated the wounds out thoroughly with saline. We closed the subcutaneous tissues of both wounds using burie d simple stitches of 2-0 Vicryl, followed by skin jani to approximate the skin edge. We then wash ed the ankle wounds, applied Xeroform gauze, sterile 4 x 4's, sterile Webril and a short-leg posterio r splint with stirrups applied to the reduced ankle fracture with the ankle in neutral position. The patient was then awoken from her anesthetic and transported onto her recovery room bed. She was the n taken to the recovery room when indicated. PLAN: The patient will be nonweightbearing in her cast extremity for a minimum of 4 weeks and probab ly up to 6 weeks altogether. She will be discharged when stable from the recovery room. She will ke ep the foot elevated and will ambulate with crutches, nonweightbearing on this extremity. Pain medic randa were prescribed. She will follow up in [facility] on Monday11/27/2019 for a clinical check, possible casting and x-rays. TD: 11/24/2019 16:29
[2019-11-24 17:43] VITALS: BP 144/78
== END 2019-11-24 18:20 | disposition home or self-care (01) ==
LOC: EDUNIT# → ED 10:02 → SDS 12:55 → MS2 17:04 → SDS 18:20
PROVIDERS: ATTEND Orthopaedic Surgery
DX: S82.842A Displaced bimalleolar fracture of left lower leg, initial encounter for closed fracture (principal); S59.901A Unspecified injury of right elbow, initial encounter; W17.2XXA Fall into hole, initial encounter; Y92.018 Other place in single-family (private) house as the place of occurrence of the external cause; G47.30 Sleep apnea, unspecified; F17.200 Nicotine dependence, unspecified, uncomplicated
CPT/HCPCS: 27814; 36415; 73080; 73610; 80053; 81001; 83690; 85025; 96374; 99284; 99285; J1170; 81003; 87086

== ENCOUNTER 2019-12-18 09:41 | Outpatient (CLI) | payer OTHER ==
--- NOTE | 2019-12-18 10:14 | SLEEP CARE CONSULTATION ---
Information from patient questionnaire entered by Arlet Estes. I have reviewed and concur with the information entered by Arlet Estes. This document represents the service I personally performed and the decisions made by me, Evy Jackson, RN, MSN, COIN MACHINE OPERATOR. History of Present Illness Service Date and Time: 12/18/2019929 Previous diagnosis: Moderate, Obstructive Sleep Apnea-Hypopnea Syndrome AHI: 18.2 Reason for follow up: three month Equipment type: CPAP Equipment obtained from: [employer] Mask style: Nasal Prior sleep studies: Yes Year and Where: [facility] Type of Sleep Study: Polysomnography CPAP Compliance Data - Data Reviewed with Patient Average duration of nightly device use: 6h 37m Compliance rate %: 90 Current pressure setting (cmH2O): 7-15 Humidity settin Heated hose settin Average residual AHI: 4.9 Average large leak: 2m 46s Subjective Patient concerns: reports: mask leak noise (occasionally - 2 times a week - adjusts mask with resolution), nasal congestion (every morning ), dry mouth, nose, throat (wakes nightly with dry mouth, ), other (sleeping on couch on lower floor. ). denies: aerophagia, mask discomfort, air blowing in eyes, condensation in mask/hose, epistaxis Observed to snore while using device: No Current pressure setting perceived as: comfortable (with use of ramp) On therapy, patient: reports: sleeping better, awakening more refreshed, being more awake and alert during the day (not driving with current energy ), more rested overall. denies: drowsiness while driving Initial [place] Sleepiness Scale score: 10 Allergies and Home Medications Known drug allergies: No Home medication list reviewed: No (no changes - no prescriptions) Review of Systems Review of systems same as previous: No (Fell through her deck/ broke her left ankle/ repaired with plate and screws) Physical Exam Height: 5 ft 4 in Impression and Plan 1. Obstructive Sleep Apnea-Hypopnea Syndrome, moderate, with good treatment comp liance and good apnea control. the new pressure reduced residual AHI to normal and she noted benefit in more refreshed sleep until her ankle injury. On CPAP therapy, the patient has better sleep quality and is more rested overall. I will have Emmy instruct on how to adjust humidity and heated hose to reduce oral dryness and nasal congestion. She can also use saline nasal spray prior to CPAP. A chinstrap fitting will also be ordered as current one slipping off and may be contributing to oral dryness. Rationale for above measures discussed. Sleep has been fragmented also from her recent recovery / pain from fractured ankle. Discussed fragmented sleep due to discomfort and measures / goals to incorporate better sleep and to allow 1 hour nap in afternoon but before 3 pm so not to interfere with night time sleep. Emphasized importance of enough sleep for healing. Patient's apnea severity and rationale7- for treatment to reduce apnea, improve sleep quality . Because patient just restarted therapy I will have her follow up in 6 months to check compliance and if any concerns with treatment. * Continue auto CPAP pressure at 15 cmH2O * Implement methods to reduce dryness and nasal congestion. * chin strap fitting * Notify me if snoring with mask or feeling that the pressure is too much or too little * Call this office if any problems using CPAP * Return for follow up in 6 months, or sooner if concerns arise Visit Type: Telehealth Phone Time Spent with Patient (minutes): 10 Provider Statement: I spent 100% of the Telehealth Phone Call with the patient with greater than 50% spent counseling the patient and coordination of care.
== END 2019-12-18 09:42 | disposition home or self-care (01) ==
LOC: SC 09:41
PROVIDERS: ATTEND Nurse Practitioner Family
DX: G47.33 Obstructive sleep apnea (adult) (pediatric) (principal)

== ENCOUNTER 2019-12-27 07:34 | Outpatient (CLI) | payer OTHER ==
--- NOTE | 2019-12-27 12:41 | XRAY Report ---
Reason: LEFT ANKLE FRACTURE Procedure Date: 12/27/2019 Accession Number: [id number] / [id number] Procedure: WCP - Ankle 3 View LT CPT Code: Final Report FULL RESULT: PROCEDURE: Ankle 3 View LT INDICATIONS: LEFT ANKLE FRACTURE TECHNIQUE: 3 views of the ankle were acquired. COMPARISON: 11/24/2019 ankle radiographs. FINDINGS: Plate and screw fixation of the lateral malleolus and distal fibula. There is also screw fixation of the medial malleolus. Hardware appears intact. There is expected postoperative alignment. Tibiotalar degenerative changes noted. Soft tissues: No tibiotalar joint effusion. Achilles tendon appears normal. IMPRESSION: Expected postoperative alignment. Reviewed by: Zain Delgado MD on 12/27/2019 12:40 PM PDT Approved by: Zain Delgado MD on 12/27/2019 12:40 PM PDT Station ID: [id number]
== END 2019-12-27 23:59 | disposition home or self-care (01) ==
LOC: DI.WCP 07:34
PROVIDERS: ATTEND Orthopaedic Surgery
DX: Z48.89 Encounter for other specified surgical aftercare (principal); S82.845D Nondisplaced bimalleolar fracture of left lower leg, subsequent encounter for closed fracture with routine healing; M19.072 Primary osteoarthritis, left ankle and foot

== ENCOUNTER 2020-01-24 08:15 | Outpatient (CLI) | payer OTHER ==
--- NOTE | 2020-01-24 15:18 | XRAY Report ---
PROCEDURE: Ankle 3 View LT INDICATIONS: DISPLACED FRACTURE OF THE LATERAL MALLEOLUS TECHNIQUE: 3 views of the ankle were acquired. COMPARISON: 12/27/2019, 11/24/2019. FINDINGS: Bones: Postsurgical changes are redemonstrated status post ORIF of fractures of the medial malleolus and distal fibula. Surgical hardware appears intact and unchanged in position. There is progressive healing with increased callus formation along the fracture margins. No definite change in alignment. Ankle mortise appears preserved. There is increased disuse osteopenia. Soft tissues: There is persistent periarticular soft tissue swelling. No tibiotalar joint effusion. Achilles tendon appears intact. IMPRESSION: 1. Healing fractures of the medial malleolus and distal fibula status post ORIF. Reviewed by: Clifford El MD on 01/24/2020 3:17 PM PDT Approved by: Clifford El MD on 01/24/2020 3:17 PM PDT Station ID: [id number]
== END 2020-01-24 08:16 | disposition home or self-care (01) ==
LOC: DI.WCP 08:15
PROVIDERS: ATTEND Orthopaedic Surgery
DX: S82.62XA Displaced fracture of lateral malleolus of left fibula, initial encounter for closed fracture (principal)

== ENCOUNTER 2020-03-20 13:05 | Outpatient (CLI) | payer OTHER ==
--- NOTE | 2020-03-23 16:26 | Mammography Report ---
BILATERAL DIGITAL SCREENING MAMMOGRAM 3D/2D: 03/20/2020 CLINICAL: Routine screening. Comparison is made to exams dated: 03/26/2019 mammogram, 03/19/2018 mammogram, 04/13/2016 mammogram, 04/14/2015 mammogram, 04/13/2014 mammogram, and 04/19/2013 mammogram - [facility]. There are scattered fibroglandular elements in both breasts. No significant masses, calcifications, or other findings are seen in either breast. There has been no significant interval change. IMPRESSION: NEGATIVE There is no mammographic evidence of malignancy. A 1 year screening mammogram is recommended. This exam was interpreted at Station ID: [id number]. NOTE: For mammograms, a report in lay terms will be sent to the patient. Approximately 15% of breast malignancies will not be visualized mammographically. In the management of a palpable breast mass, a negative mammogram must not discourage biopsy of a clinically suspicious lesion. Electronically Signed By: Kerrie arriola/taisha:03/20/2020 15:34:05 ACR BI-RADS Category 1: Negative 3341F PARENCHYMAL PATTERN: (A) - The breast(s) demonstrate(s) scattered fibroglandular densities. BI-RADS CATEGORY: (1) - 1 RECOMMENDATION: (ANNUAL) - Recommend routine annual screening mammography. [id number] 1 year screening LATERALITY: (B)
== END 2020-03-20 13:06 | disposition home or self-care (01) ==
LOC: DI.N 13:05
DX: Z12.31 Encounter for screening mammogram for malignant neoplasm of breast (principal)
CPT/HCPCS: 77063; 77067

== ENCOUNTER 2020-04-21 09:54 | Outpatient (CLI) | payer OTHER ==
--- NOTE | 2020-04-21 13:57 | XRAY Report ---
PROCEDURE: Ankle 3 View LT INDICATIONS: DISPLACED FRACTURE OF LAT MALLEOLUS OF LT FIBULA TECHNIQUE: 3 views of the ankle were acquired. COMPARISON: 01/24/2020 FINDINGS: Bones: Postsurgical changes compatible with ORIF of lateral and medial malleolar fractures noted. Or thopedic hardware remains intact. No lucencies at the bone hardware interface. Fractures are healing in anatomic alignment. No acute fractures or dislocations. Ankle mortise is normally aligned. No machado spicious bony lesions. Soft tissues: No tibiotalar joint effusion. Achilles tendon appears normal. IMPRESSION: Status post ORIF of lateral medial malleoli fractures which are healing in anatomic alignment. Reviewed by: Yesenia Moreland MD, PhD on 04/21/2020 1:56 PM PST Approved by: Yesenia Moreland MD, PhD on 04/21/2020 1:56 PM PST Station ID: [id number]
== END 2020-04-21 09:55 | disposition home or self-care (01) ==
LOC: DI 09:54
PROVIDERS: ATTEND Family Medicine
DX: S82.62XD Displaced fracture of lateral malleolus of left fibula, subsequent encounter for closed fracture with routine healing (principal)

== ENCOUNTER 2020-06-25 16:37 | Outpatient (CLI) | payer OTHER ==
--- NOTE | 2020-06-25 17:08 | SLEEP CARE CONSULTATION ---
Information from patient questionnaire entered by Destinee Amador. I have reviewed and concur with the information entered by Destinee Amador. This document represents the service I personally performed and the decisions made by me, Cece Westbrook ARNP. History of Present Illness Service Date and Time: 06/25/2020 1637 Previous diagnosis: Moderate, Obstructive Sleep Apnea-Hypopnea Syndrome AHI: 18.2 Reason for follow up: six month (followup) Equipment type: CPAP Equipment obtained from: [employer] (getting supplies as needed) Mask style: Nasal pillows Backup mask available: Yes (old mask) Last cushion change: 7-8 months Prior sleep studies: Yes Year and Where: 2019 [facility] additional information: DAHLIA MISHRA was diagnosed to have moderate, AHI 18.2, obstructive sleep apnea-hypopnea syndrome and returned today for CPAP therapy six month follow-up. CPAP Compliance Data - Data Reviewed with Patient Average duration of nightly device use: 6 h 45 min Compliance rate %: 88.3 Current pressure setting (cmH2O): 7-15 Humidity settin Heated hose settin Average residual AHI: 4.4 Average large leak: 27 sec Subjective Missed days of use due to: reports: other (power outages) Patient concerns: reports: mask leak noise (just needs adjustment from laying on the side), nasal congestion, dry mouth, nose, throat (nightly, mouth drops open when sleeping; sips water at night). denies: aerophagia, mask discomfort, air blowing in eyes, condensation in mask/hose, epistaxis, other Observed to snore while using device: No Current pressure setting perceived as: comfortable On therapy, patient: reports: sleeping better, awakening more refreshed, being more awake and alert during the day, more rested overall. denies: drowsiness while driving Initial [place] Sleepiness Scale score: 10 (in 2008) Current [place] Sleepiness Scale score: 12 Allergies and Home Medications Drug allergies reviewed: Yes (NKDA) Home medication list reviewed: Yes (no changes) Review of Systems Review of systems same as previous: Yes (no changes) Physical Exam Heart Rate: 82 O2 Saturation: 97 Height: 5 ft 4 in Weight: 168 lb Body Mass Index: 28.8 BMI Classification: Overweight Impression and Plan 1. Obstructive Sleep Apnea-Hypopnea Syndrome, moderate, with good treatment compliance and good apnea control. On CPAP therapy, the patient has better sleep quality and is more rested overall. She gets some mask leaking around the nasal pillows when she turns on her side, adjustment usually resolves this issue. Mask leaks can be reduced by washing mask daily and changing mask cushions more frequently to improve mask seal and comfort. Additionally, mask leaks predominately from when patient sleeps on their side can be reduced by using a CPAP pillow. A CPAP pillow sample was shown. This and other styes can be purchased online. She has also had some difficulty with her right nostril becoming congested in the middle of the night. Nasal congestion can be reduced with increasing the CPAP humidity as shown on sample device. The heated hose can be adjusted higher if condensation with higher humidity setting. Saline nasal spray can be used prior to CPAP to clear nasal secretions and wash off any nasal allergens to facilitate nasal breathing. Patient's apnea severity and rationale for treatment to reduce apnea, improve sleep quality and reduce cardiovascular and cerebrovascular events was reviewed. I also reviewed the benefit of consistent device use of CPAP for gastric reflux and depression. * Continue autoCPAP pressure at 7-15 cmH2O * Notify me if snoring with mask or feeling that the pressure is too much or too little * Attempt to lose weight * Call this office if any problems using CPAP * Return for follow up in 1 year, or sooner if concerns arise Counseling Topics: Spare mask, Weight loss health impact Visit Type: In Office Time Spent with Patient (minutes): 26 Provider Statement: I spent 100% of the Face to Face Visit with the patient with greater than 50% spent counseling the patient and coordination of care.
== END 2020-06-25 16:38 | disposition home or self-care (01) ==
LOC: SC 16:37
PROVIDERS: ATTEND Nurse Practitioner Family
DX: G47.33 Obstructive sleep apnea (adult) (pediatric) (principal); E66.3 Overweight; Z68.28 Body mass index [BMI] 28.0-28.9, adult
CPT/HCPCS: 99212; 99213

== ENCOUNTER 2021-04-14 08:00 | Outpatient (CLI) | payer OTHER ==
[2021-04-14 18:26] LABS: BASOPHILS # (AUTO) 0.1 10^3/uL (0.0-0.1); BASOPHILS % (AUTO) 0.8 %; EOSINOPHILS # (AUTO) 0.2 10^3/uL (0.0-0.7); EOSINOPHILS % (AUTO) 2.4 %; HCT - HEMATOCRIT 46.3 % (37.0-47.0); HGB - HEMOGLOBIN 14.8 g/dL (12.0-16.0); LYMPHOCYTES # (AUTO) 2.2 10^3/uL (1.5-3.5); LYMPHOCYTES % (AUTO) 29.6 %; MEAN CORPUSCULAR VOLUME 96.9 fL (81.0-99.0); MEAN PLATELET VOLUME 10.8 fL (7.9-10.8); MONOCYTES # (AUTO) 0.9 10^3/uL (0.0-1.0); MONOCYTES % (AUTO) 11.9 %; NEUTROPHILS # (AUTO) 4.1 10^3/uL (1.5-6.6); NEUTROPHILS % (AUTO) 54.9 %; PLT - PLATELET COUNT 258 10^3/uL (130-450); RED BLOOD COUNT 4.78 10^6/uL (4.20-5.40); RED CELL DISTRIBUTION WIDTH 13.7 % (12.0-15.0); WHITE BLOOD COUNT 7.4 x10^3/uL (4.8-10.8)
[2021-04-14 18:50] LABS: ALBUMIN 4.5 g/dL (3.2-5.5); ALBUMIN/GLOBULIN RATIO 1.7 (1.0-2.2); ALKALINE PHOSPHATASE 60 IU/L (42-121); ALT ALANINE AMINOTRANSFERASE 15 IU/L (10-60); AST ASPARTATE AMINOTRANSFERASE 20 IU/L (10-42); BILIRUBIN,TOTAL 0.5 mg/dL (0.2-1.0); BUN - BLOOD UREA NITROGEN 14 mg/dL (6-20); CALCIUM 10.2 mg/dL (8.5-10.3); CARBON DIOXIDE - CO2 29 mmol/L (21-32); CHLORIDE 101 mmol/L (101-111); CHOL/HDL RATIO 4.1 (<4.4); CHOLESTEROL 190 mg/dL; CREATININE 1.1 mg/dL (0.4-1.0); GFR - MDRD 50 (>89); GLUCOSE 71 mg/dL (70-100); HDL CHOLESTEROL 46 mg/dL; LDL CHOLESTEROL,CALCULATED 119 mg/dL; LDL/HDL RATIO 2.6 (<4.4); POTASSIUM 4.3 mmol/L (3.5-5.0); SODIUM 139 mmol/L (135-145); TOTAL PROTEIN 7.2 g/dL (6.7-8.2); TRIGLYCERIDES 124 mg/dL; VLDL CHOLESTEROL 25 mg/dL
== END 2021-04-14 23:59 | disposition home or self-care (01) ==
LOC: LAB.WCP 08:00
PROVIDERS: ATTEND Family Medicine
DX: Z00.00 Encounter for general adult medical examination without abnormal findings (principal)
CPT/HCPCS: 36415; 80053; 80061; 83721; 85025

== ENCOUNTER 2021-04-26 14:33 | Outpatient (CLI) | payer OTHER ==
--- NOTE | 2021-04-27 08:19 | Mammography Report ---
BILATERAL DIGITAL SCREENING MAMMOGRAM 3D/2D: 04/26/2021 CLINICAL: Routine screening. Comparison is made to exams dated: 03/20/2020 mammogram, 03/26/2019 mammogram, 03/19/2018 mammogram, 04/13/2016 mammogram, 04/14/2015 mammogram, and 04/13/2014 mammogram - [facility]. There are scattered fibroglandular elements in both breasts. No significant masses, calcifications, or other findings are seen in either breast. There has been no significant interval change. IMPRESSION: NEGATIVE There is no mammographic evidence of malignancy. A 1 year screening mammogram is recommended. This exam was interpreted at Station ID: [id number]. NOTE: For mammograms, a report in lay terms will be sent to the patient. Approximately 15% of breast malignancies will not be visualized mammographically. In the management of a palpable breast mass, a negative mammogram must not discourage biopsy of a clinically suspicious lesion. Electronically Signed By: Clifford helton/taisha:04/26/2021 15:42:51 ACR BI-RADS Category 1: Negative 3341F PARENCHYMAL PATTERN: (A) - The breast(s) demonstrate(s) scattered fibroglandular densities. BI-RADS CATEGORY: (1) - 1 RECOMMENDATION: (ANNUAL) - Recommend routine annual screening mammography. 20220427 1 year screening LATERALITY: (B)
== END 2021-04-26 14:34 | disposition home or self-care (01) ==
LOC: DI 14:33
DX: Z12.31 Encounter for screening mammogram for malignant neoplasm of breast (principal)

== ENCOUNTER 2021-04-27 12:51 | Outpatient (CLI) | payer OTHER ==
--- NOTE | 2021-04-27 14:29 | CT Report ---
PROCEDURE: Low Dose Lung Cancer Screen INDICATIONS: NICOTINE ABUSE TECHNIQUE: Noncontrast low-dose images were acquired from the pulmonary apices to the posterior costophrenic ang les. Multiplanar MIP reformats were then acquired. For radiation dose reduction, the following was used: automated exposure control, adjustment of mA and/or kV according to patient size. COMPARISON: 04/02/2019. FINDINGS: Image quality: Diagnostic. Lungs and pleura: Stable 4 mm right apical nodule (image 54/series 4). Stable 4 mm peripheral right lower lobe nodule (image 191/series 4). No new suspicious pulmonary nodules or masses. No acute airsp kalen disease. No pneumothorax or pleural effusion. Visualized airways appear patent. Mediastinum: Heart size is normal. Scattered atherosclerotic calcifications of the coronary arterie s. No pericardial effusion. No mediastinal adenopathy by size criteria. Thoracic aorta and central pulmonary arteries are normal in size. Scattered atherosclerotic calcifications of the aortic arch. E sophagus is normal in caliber. No hiatal hernia. Bones and chest wall: No suspicious bony lesions. No acute vertebral body compression fractures. N o axillary or supraclavicular adenopathy by size criteria. The thyroid is normal in size and there a re no incidental findings. Abdomen: Stable subcentimeter right hepatic dome hypodensity. This likely represents a cyst or heman gioma. Remainder of the visualized upper abdomen solid organs and bowel loops appear normal in the ab sence of contrast. IMPRESSION: CT chest without acute cardiopulmonary abnormalities. Stable 4 mm pulmonary nodules in the right apex and right lower lobe. No new pulmonary nodules or mas ses. Atherosclerosis. Lung RADS 2: Very low likelihood of becoming clinically active CA due to size or lack of growth, cont inue annual screening in 12 months. CLINICAL RECOMMENDATION STATEMENTS: In patients <35 years with an ITN detected on CT, MRI, or extrathyroidal ultrasound, the Committee re commends further evaluation with dedicated thyroid ultrasound if the nodule is "e1 cm and has no susp icious imaging features, and if the patient has normal life expectancy. In patients "e35 years with an ITN detected on CT, MRI, or extrathyroidal ultrasound, the Committee r ecommends further evaluation with dedicated thyroid ultrasound if the nodule is "e1.5 cm and has no s uspicious imaging features, and if the patient has normal life expectancy. (ACR, 2014) Reviewed by: Dixon Bernstein MD on 04/27/2021 2:28 PM PST Approved by: Dixon Bernstein MD on 04/27/2021 2:28 PM PST Station ID: [id number]
== END 2021-04-27 12:52 | disposition home or self-care (01) ==
LOC: DI 12:51
PROVIDERS: ATTEND Family Medicine
DX: Z12.2 Encounter for screening for malignant neoplasm of respiratory organs (principal); R91.8 Other nonspecific abnormal finding of lung field; I70.90 Unspecified atherosclerosis; F17.210 Nicotine dependence, cigarettes, uncomplicated

== ENCOUNTER 2021-09-28 12:39 | Outpatient (CLI) | payer OTHER ==
--- NOTE | 2021-09-28 13:43 | SLEEP CARE CONSULTATION ---
Information from patient questionnaire entered by Sheila Allan. I have reviewed and concur with the information entered by Sheila Allan. This document represents the service I personally performed and the decisions made by me, Cece Westbrook ARNP. History of Present Illness Service Date and Time: 09/28/2021 1239 Previous diagnosis: Moderate, Obstructive Sleep Apnea-Hypopnea Syndrome AHI: 18.2 Reason for follow up: annual (LAST SEEN 06/25/2020 ) Equipment type: CPAP Equipment obtained from: [employer] (getting supplies as needed) Mask style: Nasal pillows Mask brand: Resmed Backup mask available: Yes (other mask) Last cushion change: 2-3 months [facility] additional information: DAHLIA MISHRA was diagnosed to have moderate, AHI 18.2, obstructive sleep apnea-hypopnea syndrome and returned today for CPAP therapy annual follow-up. Sleep Study - Results Prior [facility]: Yes [facility] Compliance Data - Data Reviewed with Patient Average duration of nightly device use: 6 hours 6 seconds Compliance rate %: 73.3 Current pressure setting (cmH2O): 7-15 Average residual AHI: 3.6 Average large leak: 0 secs Subjective Missed days of use due to: reports: mask issues, illness, other (recall machine) Patient concerns: reports: mask leak noise, nasal congestion, other (always wet, runny nose ). denies: aerophagia, mask discomfort, air blowing in eyes, condensation in mask/hose, dry mouth, nose, throat, epistaxis Observed to snore while using device: No Current pressure setting perceived as: too low On therapy, patient: reports: sleeping better, awakening more refreshed, being more awake and alert during the day, more rested overall. denies: drowsiness while driving Initial [place] Sleepiness Scale score: 10 (in 2008) Current [place] Sleepiness Scale score: 6 Allergies and Home Medications Known drug allergies: No Drug allergies reviewed: Yes Home medication list reviewed: Yes (Famotidine; Terbinafine for toenail fungus) Allergy and home medication list: Allergies No Known Drug Allergies Allergy (Verified 11/24/19 10:08) Review of Systems Review of systems same as previous: No (toenail fungus for last 3 months) Physical Exam Vital signs obtained and entered by: Jennie ALLAN MA Blood Pressure: 134/72 (MANUAL) Cuff size: regular Heart Rate: 83 O2 Saturation: 96 Height: 5 ft 4 in Weight: 170 lb Body Mass Index: 29.2 BMI Classification: Overweight Impression and Plan 1. Obstructive Sleep Apnea-Hypopnea Syndrome, moderate, with good treatment compliance and good apnea control. On CPAP therapy, the patient has better sleep quality and is more rested overall. She feels that the pressure is too low at the onset of the night but otherwise is good. She will also get a little "air blow" in her right nostril that will wake her up at night and some mask leak noise. Mask leaks can be reduced by washing mask daily and changing mask cushions more frequently to improve mask seal and comfort. She has not changed out her mask for about 2 months and she has a nasal pillows mask. I advised her to change her mask more often to see if this reduces this air leaking. She also gets some dry mouth and nasal congestion. Her humidity is at 2 with the heated hose at 3. I advised her to increase her humidity to 3 as lower humidity can cause nasal congestion and dry mouth. She voiced understanding. I will have them increase her ramp starting pressure to 6 cmH2O to help reduce air hunger at beginning of night. She will let me know if the pressure still feels too low for further adjustment. Patient's apnea severity and rationale for treatment to reduce apnea, improve sleep quality and reduce cardiovascular and ce rebrovascular events was reviewed. I also reviewed the benefit of consistent device use of CPAP for gastric reflux and depression. I encouraged patient to maintain a healthy weight. * Continue auto CPAP pressure at 7-15 cmH2O * Increase ramp starting pressure to 6 cmH2O * Notify me if snoring with mask or feeling that the pressure is too much or too little * Attempt to lose weight * Call this office if any problems using CPAP * Return for follow up in 1 year, or sooner if concerns arise Counseling Topics: Spare mask, Weight loss health impact Visit Type: In Office Time Spent with Patient (minutes): 29 Provider Statement: I spent 100% of the Face to Face Visit with the patient with greater than 50% spent counseling the patient and coordination of care.
[2021-09-28 13:44] VITALS: BP 134/72
== END 2021-09-28 12:40 | disposition home or self-care (01) ==
LOC: SC 12:39
PROVIDERS: ATTEND Nurse Practitioner Family
DX: G47.33 Obstructive sleep apnea (adult) (pediatric) (principal)
CPT/HCPCS: 99212; 99213

== ENCOUNTER 2021-11-25 10:39 | Emergency (ER) | payer OTHER ==
[2021-11-25 11:13] LABS: BASOPHILS # (AUTO) 0.1 10^3/uL (0.0-0.1); BASOPHILS % (AUTO) 0.9 %; EOSINOPHILS # (AUTO) 0.1 10^3/uL (0.0-0.7); EOSINOPHILS % (AUTO) 1.2 %; HGB - HEMOGLOBIN 14.4 g/dL (12.0-16.0); LYMPHOCYTES # (AUTO) 1.6 10^3/uL (1.5-3.5); LYMPHOCYTES % (AUTO) 23.4 %; MEAN CORPUSCULAR HEMOGLOBIN 30.7 pg (27.0-31.0); MEAN CORPUSCULAR HGB CONC 32.7 g/dL (32.0-36.0); MEAN CORPUSCULAR VOLUME 93.8 fL (81.0-99.0); MEAN PLATELET VOLUME 9.7 fL (7.9-10.8); MONOCYTES # (AUTO) 0.5 10^3/uL (0.0-1.0); NEUTROPHILS # (AUTO) 4.6 10^3/uL (1.5-6.6); NEUTROPHILS % (AUTO) 67.2 %; PLT - PLATELET COUNT 245 10^3/uL (130-450); RED BLOOD COUNT 4.69 10^6/uL (4.20-5.40); RED CELL DISTRIBUTION WIDTH 13.7 % (12.0-15.0); WHITE BLOOD COUNT 6.8 x10^3/uL (4.8-10.8)
[2021-11-25 11:31] LABS: ALBUMIN 4.3 g/dL (3.2-5.5); ALBUMIN/GLOBULIN RATIO 1.3 (1.0-2.2); BILIRUBIN,TOTAL 0.4 mg/dL (0.2-1.0); CALCIUM 9.8 mg/dL (8.5-10.3); POTASSIUM 3.9 mmol/L (3.5-5.0); TOTAL PROTEIN 7.6 g/dL (6.7-8.2)
[2021-11-25] MEDS ORDERED: MECLIZINE 12.5 MG TABLET PO STA (12:14)
--- NOTE | 2021-11-25 12:16 | ED Physician Documentation ---
PD HPI FOCAL NEURO - Stated complaint Stated Complaint: HIGH BLOOD -DIZZY - Chief complaint Chief Complaint: Neuro - History obtained from History obtained from: Patient - Additional information Additional information: 61-year-old woman with history of tobacco abuse, but otherwise healthy was in her usual state of health this morning sitting her desk at her very stressful job at 930 this morning when she felt a wave come up her neck and across her head. It was not painful. Then it was associated with tunnel vision's, spotty vision, and disequilibrium and lightheadedness. There was no vertigo. When queried if she had a headache, initially she said no but then she said there is an intermittent stabbing above and posterior to the left jewish. She was in her normal routine this morning. Subsequently she took her blood pressure several times and the readings were elevated. Denies chest pain, trouble breathing, nausea. 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: 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, Tubal ligation - Present Medications Home Medications: Ambulatory Orders Medication Instructions Recorded Confirmed Ibuprofen [Advil] 200 mg PO Q24HR@2100 05/19/14 11/07/14 Omeprazole [Prilosec] 20 mg PO DAILY 05/19/14 11/07/14 Hydrocodone/Acetaminophen 1 - 2 each PO Q6H PRN #15 tablet 11/07/14 [Hydrocodon-Acetaminophen 5-325] Naproxen [Naprosyn] 500 mg PO BID #20 tablet 11/07/14 - Allergies Allergies/Adverse Reactions: Allergies Allergy/AdvReac Type Severity Reaction Status Date / Time No Known Drug Allergies Allergy Verified 11/25/21 10:49 - Social History Does the pt smoke?: Yes Smoking Status: Current every day smoker Does the pt drink ETOH?: Yes Does the pt have substance abuse?: No - Immunizations Immunizations: TDAP >10years/unknown - POLST Patient has POLST: No PD ED PE NORMAL - Vitals Vital signs reviewed: Yes - General General: Alert and oriented X 3, No acute distress - HEENT HEENT: PERRL, EOMI, Other (A few beats of nystagmus on rightward gaze) - Neck Neck: Supple, no meningeal sign, No bony TTP - Cardiac Cardiac: RRR, No murmur - Respiratory Respiratory: No respiratory distress, Clear bilaterally - Abdomen Abdomen: Non tender - Derm Derm: Normal color, Warm and dry - Neuro Neuro: Alert and oriented X 3, home health clinical liaison 2-12 intact, No motor deficit, No sensory deficit, Normal speech, Other (Normal fgvads-xz-gypz and ktvb-rs-llfn testing) Eye Opening: Spontaneous Motor: Obeys Commands Verbal: Oriented GCS Score: 15 Results - Vitals Vitals: Vital Signs - 24 hr 11/25/21 11/25/21 11/25/21 10:50 11:57 13:00 Temperature 37.2 C Heart Rate 88 86 88 Respiratory 18 15 24 Rate Blood Pressure 161/99 H 154/91 H 139/84 H O2 Saturation 99 96 98 Oxygen O2 Source Room air - EKG (time done) 1055 Rate: Rate (enter#) (77) Rhythm: NSR [place]: LAD Intervals: Normal [place] QRS: Normal Ischemia: Normal ST segments - Labs Labs: Laboratory Tests 11/25/21 11/25/21 11/25/21 11:09 11:09 11:09 WBC 6.8 RBC 4.69 Hgb 14.4 Hct 44.0 MCV 93.8 MCH 30.7 MCHC 32.7 RDW 13.7 Plt Count 245 MPV 9.7 Neut # (Auto) 4.6 Lymph # (Auto) 1.6 Mathews # (Auto) 0.5 Eos # (Auto) 0.1 Baso # (Auto) 0.1 Absolute Nucleated RBC 0.00 Nucleated RBC % 0.0 Sodium 140 Potassium 3.9 Chloride 101 Carbon Dioxide 27 Anion Gap 12.0 BUN 14 Creatinine 1.0 Estimated GFR (MDRD) 56 L Glucose 98 Calcium 9.8 Total Bilirubin 0.4 AST 19 ALT 15 Alkaline Phosphatase 55 Troponin I High Sens 3.0 Total Protein 7.6 Albumin 4.3 Globulin 3.3 Albumin/Globulin Ratio 1.3 Lipase 36 - Rads (name of study) Ct Head Radiology: EMP read contemporaneously PD MEDICAL DECISION MAKING - ED course ED course: 61-year-old woman presents with a disequilibrium and is noted to have mono directional nystagmus on exam, otherwise normal exam with normal labs and unremarkable EKG. She was able to ambulate here without issue and has normal bfvdzb-ah-dtzf and nrjb-nx-aavc testing. She felt better after meclizine and her blood pressure normalized. Departure - Departure Disposition: 01 Home, Self Care Clinical Impression: Dizziness Condition: Good Record reviewed to determine appropriate education?: Yes Instructions: ED Dizziness UKO Comments: As discussed, the CT of your head was normal for acute findings but did show "microvascular ischemic change". I recommend you quit smoking. Blood pressure improved with time here, should be rechecked in a week or so with your doctor on a recheck visit. Return if worsening. We did give you meclizine here which is available [id number] which you can take if your dizziness comes back.
--- NOTE | 2021-11-25 12:50 | CT Report ---
PROCEDURE: HEAD WO INDICATIONS: dizzy bennett TECHNIQUE: Noncontrast 4.5 mm thick angled axial sections acquired from the foramen magnum to the vertex. For r adiation dose reduction, the following was used: automated exposure control, adjustment of mA and/or kV according to patient size. COMPARISON: None. FINDINGS: Image quality: Excellent. CSF spaces: Basal cisterns are patent. No extra-axial fluid collections. Ventricles are normal in size and shape. Brain: No midline shift. No intracranial masses or hemorrhage. Escoto-white matter interface is norm al. Subcortical and periventricular hypodensities are consistent with microvascular ischemic disease and age-related cerebral volume loss. Skull and face: Calvarium and visualized facial bones are intact, without suspicious lesions. Sinuses: Visualized sinuses and mastoids are clear. IMPRESSION: 1. No acute intracranial abnormality. 2. Microvascular ischemic disease. 3. Consider MRI with contrast if symptoms persist. Reviewed by: Yfn Medel on 11/25/2021 12:49 PM PDT Approved by: Yfn Medel on 11/25/2021 12:49 PM PDT Station ID: [id number]
[2021-11-25 13:21] VITALS: BP 134/89
== END 2021-11-25 13:20 | disposition home or self-care (01) ==
LOC: ED 10:39
DX: R42 Dizziness and giddiness (principal); F17.200 Nicotine dependence, unspecified, uncomplicated
CPT/HCPCS: 36415; 70450; 80053; 83690; 84484; 85025; 93005; 99284; A9270

== ENCOUNTER 2022-04-04 12:42 | Outpatient (CLI) | payer OTHER ==
--- NOTE | 2022-04-04 14:23 | DEXA Report ---
PROCEDURE: Dexa Spine and/or Hip INDICATIONS: OSTEOPENIA TECHNIQUE: Dual energy x-ray absorptiometry (DXA) was performed on a Flypaper System. Regions measur ed are the AP Spine, femoral neck, and if needed forearm. COMPARISON: None. FINDINGS: Lumbar Spine: Bone Mineral Density 1.04 g/cm/cm,T score -1.2, Left Hip: Bone Mineral Density 0.89 g/cm/cm,T score -0.9, Left Femoral Neck: Bone Mineral Density 0.81 g/cm/cm, T score -1.6, (T score greater or equal to -1.0: NORMAL) (T score from -1.1 to -2.4: OSTEOPENIA) (T score less than or equal to -2.5 to: OSTEOPOROSIS) Impression: Osteopenia of the lumbar spine and left femoral neck. Patients with diagnosis of osteoporosis or osteopenia should have regular bone mineral density assess ment. For those eligible for Medicare, routine testing is allowed once every 2 years. Testing frequ ency can be increased for patients who have rapidly progressing disease or for those who are receivin g medical therapy to restore bone mass. Reviewed by: Terry Iniguez MD on 04/04/2022 2:22 PM PST Approved by: Terry Iniguez MD on 04/04/2022 2:22 PM PST Station ID: [id number]
== END 2022-04-04 12:43 | disposition home or self-care (01) ==
LOC: DI 12:42
PROVIDERS: ATTEND Physician Assistant
DX: M85.89 Other specified disorders of bone density and structure, multiple sites (principal)

== ENCOUNTER 2022-04-04 12:43 | Outpatient (CLI) | payer OTHER ==
--- NOTE | 2022-04-06 16:25 | Mammography Report ---
BILATERAL DIGITAL SCREENING MAMMOGRAM 3D/2D: 04/04/2022 CLINICAL: Routine screening. Comparison is made to exams dated: 04/26/2021 mammogram, 03/20/2020 mammogram, 03/26/2019 mammogram, 03/19/2018 mammogram, 04/13/2016 mammogram, and 04/14/2015 mammogram - [facility]. There are scattered areas of fibroglandular density in both breasts (category b / 25%-50% glandular t issue). No significant masses, calcifications, or other findings are seen in either breast. There has been no significant interval change. IMPRESSION: NEGATIVE There is no mammographic evidence of malignancy. A 1 year screening mammogram is recommended. Based on the Tyrer Cuzick model (a risk assessment model) the patients lifetime risk is 12.1% and he r 10 year risk is 5.5%. According to the ACR, ACS, and NCCN guidelines, an annual breast MRI exam gorge ng with mammogram is recommended if the patients lifetime risk is 20% or greater. This exam was interpreted at Station ID: [id number]. NOTE: For mammograms, a report in lay terms will be sent to the patient. Approximately 15% of breast malignancies will not be visualized mammographically. In the management of a palpable breast mass, a negative mammogram must not discourage biopsy of a clinically suspicious lesion. Electronically Signed By: Luz lau/taisha:04/05/2022 14:47:16 ACR BI-RADS Category 1: Negative 3341F PARENCHYMAL PATTERN: (A) - The breast(s) demonstrate(s) scattered fibroglandular densities. BI-RADS CATEGORY: (1) - 1 RECOMMENDATION: (ANNUAL) - Recommend routine annual screening mammography. [id number] 1 year screening LATERALITY: (B)
== END 2022-04-04 12:44 | disposition home or self-care (01) ==
LOC: DI 12:43
PROVIDERS: ATTEND Physician Assistant
DX: Z12.31 Encounter for screening mammogram for malignant neoplasm of breast (principal)

== ENCOUNTER 2022-04-25 08:27 | Outpatient (CLI) | payer OTHER ==
[2022-04-25 09:06] LABS: CHOLESTEROL 188 mg/dL; HDL CHOLESTEROL 47 mg/dL; LDL CHOLESTEROL,CALCULATED 121 mg/dL; LDL/HDL RATIO 2.6 (<4.4); TRIGLYCERIDES 101 mg/dL; VLDL CHOLESTEROL 20 mg/dL
--- NOTE | 2022-04-26 11:54 | Ultrasound Report ---
LIMITED ULTRASOUND OF LEFT BREAST: 04/25/2022 CLINICAL: Occasional left breast pain. Comparison is made to exams dated: 04/04/2022 mammogram, 04/26/2021 mammogram, 03/20/2020 mammogram, 03/26/2019 mammogram, 03/19/2018 mammogram, and 04/13/2016 mammogram - [facility]. Color flow and real-time ultrasound of the left breast 2-4 o'clock region were performed on the areas of interest. Escoto scale images of the real-time examination were reviewed. IMPRESSION: NEGATIVE There is no sonographic evidence of malignancy. There is no sonographic abnormality seen in the left breast to correspond with the pain, however, cli nical followup is recommended. Return to annual mammogram screening schedule is recommended. Future imaging is recommended as follo ws: 04/05/2023 screening mammogram. This exam was interpreted at Station ID: [id number]. Electronically Signed By: Kerrie arriola/:04/25/2022 09:59:17 Ultrasound BI-RADS: 1 Negative BI-RADS CATEGORY: (1) - 1 Mammogram [id number] return to screening LATERALITY: (B)
== END 2022-04-25 08:28 | disposition home or self-care (01) ==
LOC: DI 08:27
PROVIDERS: ATTEND Physician Assistant
DX: N64.4 Mastodynia (principal); Z13.220 Encounter for screening for lipoid disorders
CPT/HCPCS: 36415; 80061; 83721

== ENCOUNTER 2022-05-10 07:11 | Outpatient (CLI) | payer OTHER ==
--- NOTE | 2022-05-10 22:27 | CT Report ---
PROCEDURE: Low Dose Lung Cancer Screen INDICATIONS: Episodic tobacco dependence TECHNIQUE: Noncontrast low-dose axial images were acquired from the pulmonary apices to the posterior costophren ic angles. Multiplanar MIP reformats were then reconstructed. For radiation dose reduction, the follo wing was used: automated exposure control, adjustment of mA and/or kV according to patient size. COMPARISON: 04/27/2021. FINDINGS: Image quality: Excellent. Lungs and pleura: Right apical curvilinear 4 mm nodule is decreased in size when compared with prior study and appears more sub-solid sub-solid, consistent with an infectious or inflammatory nodule or evolving granuloma (series 4 image 53. Unchanged right lower lobe 4 mm nodule on series 4 image 190. New 2 mm nodule in the posterior aspect of the right upper lobe on series 4 image 135 approximately 8 mm anterior to the fissure. No pleural effusion or other significant pleural finding. Mediastinum: Normal heart size. No pericardial effusion. No mediastinal or hilar lymphadenopathy. Bones and chest wall: No suspicious lytic or blastic osseous lesion. No axillary adenopathy. Abdomen: Visualized upper abdomen solid organs and bowel loops appear normal in the absence of contr ast. IMPRESSION: Previously described small pulmonary nodules are unchanged. New tiny 2 mm nodule is likely benign. Lung RADS 2: Very low likelihood of becoming clinically active CA due to size or lack of growth, cont inue annual screening in 12 months. Reviewed by: Singh Villa MD on 05/10/2022 10:26 PM PST Approved by: Singh Villa MD on 05/10/2022 10:26 PM PST Station ID: [id number]
== END 2022-05-10 07:12 | disposition home or self-care (01) ==
LOC: DI 07:11
PROVIDERS: ATTEND Physician Assistant
DX: Z12.2 Encounter for screening for malignant neoplasm of respiratory organs (principal); R91.8 Other nonspecific abnormal finding of lung field; F17.290 Nicotine dependence, other tobacco product, uncomplicated

== ENCOUNTER 2022-10-13 10:43 | Outpatient (CLI) | payer OTHER ==
[2022-10-13 10:56] LABS: BASOPHILS # (AUTO) 0.1 10^3/uL (0.0-0.1); BASOPHILS % (AUTO) 0.9 %; EOSINOPHILS # (AUTO) 0.1 10^3/uL (0.0-0.7); EOSINOPHILS % (AUTO) 1.3 %; HCT - HEMATOCRIT 46.4 % (37.0-47.0); HGB - HEMOGLOBIN 14.9 g/dL (12.0-16.0); LYMPHOCYTES # (AUTO) 2.1 10^3/uL (1.5-3.5); LYMPHOCYTES % (AUTO) 32.6 %; MEAN CORPUSCULAR HGB CONC 32.1 g/dL (32.0-36.0); MEAN CORPUSCULAR VOLUME 93.4 fL (81.0-99.0); MEAN PLATELET VOLUME 9.9 fL (7.9-10.8); MONOCYTES # (AUTO) 0.4 10^3/uL (0.0-1.0); MONOCYTES % (AUTO) 6.9 %; NEUTROPHILS # (AUTO) 3.7 10^3/uL (1.5-6.6); PLT - PLATELET COUNT 248 10^3/uL (130-450); RED BLOOD COUNT 4.97 10^6/uL (4.20-5.40); RED CELL DISTRIBUTION WIDTH 13.7 % (12.0-15.0); WHITE BLOOD COUNT 6.4 x10^3/uL (4.8-10.8)
[2022-10-13 11:33] LABS: ALBUMIN 4.4 g/dL (3.2-5.5); ALBUMIN/GLOBULIN RATIO 1.3 (1.0-2.2); ALKALINE PHOSPHATASE 60 IU/L (42-121); ALT ALANINE AMINOTRANSFERASE 19 IU/L (10-60); AST ASPARTATE AMINOTRANSFERASE 22 IU/L (10-42); BILIRUBIN,TOTAL 0.6 mg/dL (0.2-1.0); BUN - BLOOD UREA NITROGEN 13 mg/dL (6-20); CALCIUM 9.6 mg/dL (8.5-10.3); CARBON DIOXIDE - CO2 26 mmol/L (21-32); CHLORIDE 104 mmol/L (101-111); CHOL/HDL RATIO 3.9 (<4.4); CHOLESTEROL 200 mg/dL; GFR - MDRD 56 (>89); GLUCOSE 95 mg/dL (70-100); HDL CHOLESTEROL 51 mg/dL; LDL CHOLESTEROL,CALCULATED 136 mg/dL; LDL/HDL RATIO 2.7 (<4.4); LIPASE 36 U/L (22-51); POTASSIUM 3.9 mmol/L (3.5-5.0); SODIUM 141 mmol/L (135-145); TOTAL PROTEIN 7.9 g/dL (6.7-8.2); TRIGLYCERIDES 67 mg/dL; VLDL CHOLESTEROL 13 mg/dL
== END 2022-10-13 10:44 | disposition home or self-care (01) ==
LOC: LAB 10:43
PROVIDERS: ATTEND Physician Assistant
DX: R10.13 Epigastric pain (principal); Z13.220 Encounter for screening for lipoid disorders
CPT/HCPCS: 36415; 80053; 80061; 83690; 83721; 85025

== ENCOUNTER 2022-10-20 06:58 | Outpatient (CLI) | payer OTHER ==
--- NOTE | 2022-10-20 10:14 | Ultrasound Report ---
PROCEDURE: Abdomen Limited INDICATIONS: EPIGASTRIC PAIN TECHNIQUE: Real-time focused scanning was performed of the abdomen, with image documentation. COMPARISONS: Correlation made to CT 05/10/2022 FINDINGS: Liver: The liver is mildly hyperechoic and normal in size. There are a few scattered liver cysts, la rgest being a cluster in the medial left lobe measuring up to 2.5 cm. There is appropriate direction of flow in the portal vein. Gallbladder: Gallbladder is filled with numerous tiny shadowing calculi resulting in a wall echo shad ow appearance. The wall is normal thickness. No pericholecystic fluid or sonographic Hidalgo's sign. Biliary ducts: Intrahepatic bile ducts are non-dilated. Extrahepatic bile duct caliber measures 9.9 mm. Normal is 6-7 mm or less in diameter, or 10 mm or less post-cholecystectomy. The distal common duct was not well seen. Pancreas: Visualized portions of the pancreas are sonographically normal. Right kidney: Normal in size and echotexture. Right kidney measures 9.8 cm long. No hydronephrosis o r nephrolithiasis. No solid masses. No complex renal cystic lesions which require follow-up. Miscellaneous: No free abdominal fluid. IMPRESSION: 1. Cholelithiasis without sonographic evidence of acute cholecystitis. 2. There is dilatation of the extrahepatic common duct and the distal common duct is not well seen. F urther evaluation with MRCP is recommended to assess for choledocholithiasis. 3. A few hepatic cysts are present, similar compared to recent CT scan. Reviewed by: Luz Fregoso MD on 10/20/2022 10:13 AM PDT Approved by: Luz Fregoso MD on 10/20/2022 10:13 AM PDT Station ID: [id number]
== END 2022-10-20 06:59 | disposition home or self-care (01) ==
LOC: DI 06:58
PROVIDERS: ATTEND Physician Assistant
DX: K80.20 Calculus of gallbladder without cholecystitis without obstruction (principal); K76.89 Other specified diseases of liver; R10.13 Epigastric pain

== ENCOUNTER 2022-10-20 14:34 | Outpatient (CLI) | payer OTHER ==
--- NOTE | 2022-10-20 15:18 | Sleep Patient Instructions ---
Sleep Center Visit Summary - Patient Visit Information Reason for Visit: Annual visit for CPAP therapy - Patient Instructions Additional Instructions: You will continue with CPAP therapy with pressure set at 7-15 cmH2O. A supply prescription will be updated with your DME. We encourage you to continue to try to lose weight. Please follow up with the sleep care office in 1 year. - Clinic Information Contact: [facility] [address] [place] [address] [email or web address] T: [phone]
--- NOTE | 2022-10-20 15:24 | SLEEP CARE CONSULTATION ---
Information from patient questionnaire entered by Veronica Coto. I have reviewed and concur with the information entered by Veronica Coto. This document represents the service I personally performed and the decisions made by me, Cece Westbrook ARNP. History of Present Illness Service Date and Time: 10/20/2022 1434 Previous diagnosis: Moderate, Obstructive Sleep Apnea-Hypopnea Syndrome AHI: 18.2 Reason for follow up: annual (LAST SEEN 09/2021) Equipment type: CPAP (RODRIGUEZ Dreamwear 2, s/u 06/2019) Equipment obtained from: [facility] (getting supplies as needed) Mask style: Nasal pillows Mask brand: Resmed (AirFit [id number]) Backup mask available: Yes (old mask) Prior sleep studies: Yes Year and Where: 2019 [facility] additional information: DAHLIA MISHRA was diagnosed to have moderate, AHI 18.2, obstructive sleep apnea-hypopnea syndrome and returned today for CPAP therapy annual follow-up. Sleep Study - Results Prior sleep studies: Yes Year and Where: 2019 [facility] CPAP Compliance Data - Data Reviewed with Patient Average duration of nightly device use: 6 hours 38 minutes Compliance rate %: 51.7 (97/180 days used; 73.3% for last 30 days (24/30 days used)) Current pressure setting (cmH2O): 7-15 Average residual AHI: 4.1 Central apnea: 0.8 Obstructive apnea: 1.7 Hypopnea: 1.6 Average large leak: 1 secs Subjective Missed days of use due to: reports: mask issues, other (recall) Patient concerns: reports: mask leak noise (air back fires or "misses" in nose pillow wakes her up). denies: aerophagia, mask discomfort, air blowing in eyes, condensation in mask/hose, nasal congestion, dry mouth, nose, throat, epistaxis Observed to snore while using device: No Current pressure setting perceived as: comfortable On therapy, patient: reports: sleeping better, awakening more refreshed, being more awake and alert during the day, more rested overall. denies: drowsiness while driving Initial Lewis Sleepiness Scale score: 10 (in 2008) Current Lewis Sleepiness Scale score: 9 (10/20/22) Allergies and Home Medications Known drug allergies: No Drug allergies reviewed: Yes Home medication list reviewed: Yes (Omeprazole) Allergy and home medication list: Allergies No Known Drug Allergies Allergy (Verified 10/19/22 14:47) Review of Systems Review of systems same as previous: No (possible gallbladder issues) Physical Exam Vital signs obtained and entered by: VERONICA Cárdenas MA Blood Pressure: 124/64 (LEFT ARM) Cuff size: long Heart Rate: 90 O2 Saturation: 96 Height: 5 ft 4 in Weight: 172 lb Body Mass Index: 29.5 BMI Classification: Overweight Impression and Plan 1. Obstructive Sleep Apnea-Hypopnea Syndrome, moderate, with good treatment comp liance and good apnea control. On CPAP therapy, the patient has better sleep quality and is more rested overall. Patient getting small puffs of air through her nasal pillows mask that are waking her up. She is not sure if the pillows collapsing or why it is happening. She gets frustrated with it and does not want to wear it. I fit her to a nasal cushion mask, DreamWear small cushion with medium headgear and she felt it was very comfortable and is excited to try it out. If this resolves her issue and she will continue to use the nasal cushion mask instead of the nasal pillows. Patient's apnea severity and rationale for treatment to reduce apnea, improve sleep quality and reduce cardiovascular and cerebrovascular events was reviewed. I also reviewed the benefit of consistent device use of CPAP for gastric reflux and depression. 2. Overweight, unspecified. Currently patients BMI is 29.5. Obesity increases the risk of apnea, CPAP pressure requirements and overall health risks especi ally cardiovascular and diabetes. Thus patient is advised to lose weight. * Continue auto CPAP pressure at 7-15 cmH2O * Given sample of Dreamwear nasal cushion mask to try * Update supplies * Notify me if snoring with mask or feeling that the pressure is too much or too little * Attempt to lose weight * Call this office if any problems using CPAP * Return for follow up in 1 year, or sooner if concerns arise Mask provided: Yes Counseling Topics: Spare mask, Weight loss health impact Visit Type: In Office Time Spent with Patient (minutes): 29 Provider Statement: I spent 100% of the Face to Face Visit with the patient with greater than 50% spent counseling the patient and coordination of care.
[2022-10-20 16:01] VITALS: BP 124/64
== END 2022-10-20 14:35 | disposition home or self-care (01) ==
LOC: SC 14:34
PROVIDERS: ATTEND Nurse Practitioner Family
DX: G47.33 Obstructive sleep apnea (adult) (pediatric) (principal); E66.3 Overweight; Z68.29 Body mass index [BMI] 29.0-29.9, adult
CPT/HCPCS: 99212; 99213

== ENCOUNTER 2022-11-08 15:37 | Outpatient (CLI) | payer OTHER ==
[~2022-11-08 15:37] MED LIST: GADOBUTROL 10 MMOL/10 ML VIAL ONE
[2022-11-08] MEDS ORDERED: GADOBUTROL 10 MMOL/10 ML VIAL IVP ONE (17:59)
--- NOTE | 2022-11-09 09:29 | MRI Report ---
PROCEDURE: MRCP W/WO INDICATIONS: DILATED COMMON BILE DUCT CONTRAST: gadavist 7.7ml TECHNIQUE: Coronal ultra fast SE through the abdomen, axial 2-D spoiled GE in- and [id number], and breath-hold T2 FSE with fat saturation through the biliary system and pancreas. Oblique coronal and axial thin- slice ultra fast SE, radial thick-slab ultra fast SE centered on the extrahepatic bile ducts. COMPARISON: Ultrasound 10/20/2022 FINDINGS: Image quality: Excellent. Gallbladder: Cholelithiasis without wall thickening. 2.5 cm soft tissue mass at the fundus, most cons istent with adenomyomatosis. Biliary tree: Borderline dilated, measuring 8 mm. Pancreas: Mild dilation, measuring 5 mm. Lung bases and heart: Unremarkable. Liver: No solid mass. Benign cysts without nodules. Spleen: No splenomegaly. Adrenals: No adrenal nodule. Kidneys and ureters: No hydronephrosis. No renal cystic lesion which requires follow up. No solid mas s. Bowel and peritoneum: Soft tissue prominence at the ampulla, measuring 1.2 cm. Lymph nodes: No central or retroperitoneal adenopathy. Vessels: No infrarenal aortic aneurysm. Bones: No aggressive osseous abnormality. Other: No significant ventral hernia. IMPRESSION: Mild extrahepatic and pancreatic ductal dilation. There is soft tissue prominence at the ampulla, maddie suring 1.2 cm. Findings could indicate periampullary mass or sphincter of Oddi dysfunction. Consider ERCP. Focal adenomyomatosis of the gallbladder fundus. Reviewed by: Antoine Fajardo on 11/09/2022 9:28 AM PDT Approved by: Antoine Fajardo on 11/09/2022 9:28 AM PDT Station ID: [id number]
== END 2022-11-08 15:38 | disposition home or self-care (01) ==
LOC: DI 15:37
PROVIDERS: ATTEND Physician Assistant
DX: K83.8 Other specified diseases of biliary tract (principal); K86.89 Other specified diseases of pancreas; K82.8 Other specified diseases of gallbladder
CPT/HCPCS: 74183; A9585

== ENCOUNTER 2023-03-14 06:19 | Inpatient (IN) | payer OTHER ==
[~2023-03-14 06:19] MED LIST changes: -GADOBUTROL 10 MMOL/10 ML VIAL ONE; +ceFAZolin 2 GM VIAL ONE
[2023-03-14] MEDS ORDERED: LACTATED RINGERS 1,000 ML IV ONE ×2 (06:21→10:24)
[2023-03-14] MEDS ORDERED: LIDOCAINE 1%-EPI 1:100000 20 ML MDV ONE (07:05)
--- NOTE | 2023-03-14 07:05 | ANESTHESIA ---
Pre-Anesthesia VS, & Labs - Diagnosis cholelithiasis - Procedure laparopscopic cholecystectomy Vital Signs: Temp Pulse Resp BP Pulse Ox O2 Flow Rate 36.4 C L 83 16 128/76 95 03/14/23 06:28 03/14/23 06:28 03/14/23 06:28 03/14/23 06:28 03/14/23 06:28 Height: 5 ft 4 in Weight (kg): 76 kg Body Mass Index: 28.8 BMI Classification: Overweight - NPO >8 hours - Is Patient ?: No - Lab Results Lab results reviewed: Yes Home Medications and Allergies Omeprazole [Prilosec] 40 mg PO DAILY 05/19/14 Allergies/Adverse Reactions: Allergies Allergy/AdvReac Type Severity Reaction Status Date / Time No Known Drug Allergies Allergy Verified 10/20/22 14:34 Anes History & Medical History - Anesthetic History Anesthesia Complications: reports: No previous complications Family history of Anesthesia Complications: Denies Family history of Malignant Hyperthermia: Denies - Medical History Cardiovascular: reports: None Pulmonary: reports: COPD, Sleep apnea, CPAP use Gastrointestinal: reports: GERD, Cholelithiasis Urinary: reports: None Musculoskeletal: reports: None Endocrine/Autoimmune: reports: None Skin: reports: None Smoking Status: Current every day smoker History of Cancer?: No - Surgical History General: reports: Colonoscopy, EGD, Other (pancreas/gallbladder biopsy) Gynecologic: reports: section, Tubal ligation Orthopedic: reports: Other Exam General: Alert, Oriented x3, Cooperative Dental: WNL Mouth Openin Fingerbreadth Neck Mobility: Normal Mallampati classification: II Thyromental Distance: 4-6 cm Respiratory: Lungs clear, Normal breath sounds, No respiratory distress Cardiovascular: Regular rate Neurological: Normal speech Mental/Cognitive Status: Alert/Oriented X3, Normal for patient Cognitive Status: Within normal limits Plan Anesthesia Type: General Consent for Procedure(s) Verified and Reviewed: Yes Code Status: Attempt Resuscitation ASA classification: 2-Mild systemic disease Is this case an emergency?: No
[2023-03-14] MEDS ORDERED: ONDANSETRON 4 MG/2 ML VIAL IVP PRN ×2 (07:08→09:22)
[2023-03-14] MEDS ORDERED: NALOXONE 0.4 MG/ML VIAL IVP PRN (07:08)
[2023-03-14] MEDS ORDERED: fentaNYL 100 MCG/2 ML VIAL IVP PRN (07:08)
[2023-03-14] MEDS ORDERED: ePHEDrine 50 MG/ML VIAL IVP PRN (07:08)
[2023-03-14] MEDS ORDERED: METOCLOPRAMIDE 10 MG/2 ML VIAL IVP PRN (07:08)
[2023-03-14] MEDS ORDERED: ATROPINE ABBOJECT 1 MG/10 ML SYRINGE IVP PRN (07:08)
[2023-03-14] MEDS ORDERED: MORPHINE 2 MG/ML CARPUJECT IVP PRN (07:08)
[2023-03-14] MEDS ORDERED: LIDOCAINE 1%-EPI 1:100000 50 ML VIAL IJ ONE (07:24)
[2023-03-14] MEDS ORDERED: fentaNYL 100 MCG/2 ML VIAL ONE ×3 (07:33→10:12)
[2023-03-14] MEDS ORDERED: MIDAZOLAM 2 MG/2 ML VIAL ONE ×2 (07:33→10:35)
[2023-03-14] MEDS ORDERED: ROCURONIUM 50 MG/5 ML VIAL ONE ×2 (07:51→08:45)
[2023-03-14] MEDS ORDERED: LACTATED RINGERS 1,000 ML IV SCH (08:00)
[2023-03-14] MEDS ORDERED: ePHEDrine 50 MG/ML VIAL IVP ONE (08:03)
[2023-03-14] MEDS ORDERED: MORPHINE PF 5 MG/10 ML VIAL ONE (09:06)
[2023-03-14] MEDS ORDERED: NITROGLYCERIN SL 0.4 MG TABLET SL ONE (09:11)
[2023-03-14] MEDS ORDERED: PROCHLORPERAZINE 10 MG/2 ML VIAL IVP PRN (09:22)
[2023-03-14] MEDS ORDERED: SODIUM CHLORIDE FLUSH 0.9% 10 ML SYRINGE IVP PRN ×2 (09:22→10:39)
--- NOTE | 2023-03-14 10:00 | XRAY Report ---
PROCEDURE: Abdomen 1 View X-Ray INDICATIONS: opened abdomen emergently TECHNIQUE: One view of the abdomen acquired. COMPARISON: MRCP dated 11/08/2022. FINDINGS: Surgical changes and devices: NG tube is seen coiled in the region of GE junction, suggest clinical c orrelation. Surgical clips are noted in gallbladder fossa. Bowel: Significant fecal stasis in the colon is seen. No gross pneumoperitoneum. Soft tissues: No suspicious abdominal calcifications. Visualized solid organ contours appear normal in size. Bones: No suspicious bony lesions. IMPRESSION: 1. NG tube is seen coiled in the region of GE junction, suggest clinical correlation. 2. Mild to moderate constipation. No gross free air is seen. No evidence of bowel obstruction. Reviewed by: Mj Lennon MD on 03/14/2023 9:59 AM PDT Approved by: Mj Lennon MD on 03/14/2023 9:59 AM PDT Station ID: [id number]
[2023-03-14] MEDS ORDERED: SUGAMMADEX 200 MG/2 ML VIAL IVP ONE (10:01)
[2023-03-14] MEDS: HYDROmorphone 0.5 MG/0.5 ML SYRINGE IVP PRN ×4 (10:44→11:16)
[2023-03-14 11:08] LABS: BASOPHILS # (AUTO) 0.1 10^3/uL (0.0-0.1); BASOPHILS % (AUTO) 0.5 %; EOSINOPHILS # (AUTO) 0.1 10^3/uL (0.0-0.7); EOSINOPHILS % (AUTO) 0.6 %; HGB - HEMOGLOBIN 13.5 g/dL (12.0-16.0); LYMPHOCYTES % (AUTO) 13.3 %; MEAN CORPUSCULAR HEMOGLOBIN 30.2 pg (27.0-31.0); MEAN CORPUSCULAR HGB CONC 32.1 g/dL (32.0-36.0); MONOCYTES # (AUTO) 0.6 10^3/uL (0.0-1.0); MONOCYTES % (AUTO) 2.5 %; NEUTROPHILS # (AUTO) 18.5 10^3/uL (1.5-6.6); NEUTROPHILS % (AUTO) 82.3 %; PLT - PLATELET COUNT 247 10^3/uL (130-450); RED BLOOD COUNT 4.47 10^6/uL (4.20-5.40); RED CELL DISTRIBUTION WIDTH 13.4 % (12.0-15.0); WHITE BLOOD COUNT 22.5 x10^3/uL (4.8-10.8)
--- NOTE | 2023-03-14 11:14 | CONSULTATION NOTE ---
Referring Provider Name of Referring Provider:: Dr Hunter Consult Date: 03/14/23 Chief Complaint - Chief Complaint Chief Complaint: Hypotension in OR, with ST segment elevations and diaphoresis History of Present Illness - Admitted From Admitted From:: OR>> PACU>> Inpatient - History Obtained From Records Reviewed: Yes History obtained from: Anesthesia - History of Present Illness HPI Comment/Other: This is a 63-year-old female with a history of sleep apnea on CPAP, an d she is a smoker. She was scheduled to undergo elective laparoscopic cholecystectomy today. During the OR procedure, she started to have excessive bleeding in the operative field and she needed an open cholecystectomy. The bleeding was eventually controlled. She did have hypotension during this bleeding event and received 2 units of PRBCs in the OR. Also she did have hypotension with syst BP down to the 80's, and she was noted to be diaphoretic then by the anesthesia provider. When BP improved, she was given IV morphine and nitroglycerin. She had improvement of her notable diaphoresis and her vital signs. I was contacted by the OR staff and was asked to come into the OR and see the patient. She was still undergoing her surgery and I spoke to Dr. Hunter and the Anesthesia provider in the OR. A stat EKG was ordered but not done yet since she was still undergoing surgery and was in a sterile operative field. We discussed the plan for her to be admitted to inpatient status into the ICU. History - Past Medical History Cardiovascular: reports: None Respiratory: reports: COPD, Sleep apnea, CPAP use Endocrine/Autoimmune: reports: None GI: reports: GERD, Cholelithiasis : reports: None HEENT: reports: Chronic vision loss Psych: reports: Anxiety Musculoskeletal: reports: None Derm: reports: None MRSA Hx?: No - Past Surgical History General: reports: Colonoscopy, EGD, Other (pancreas/gallbladder biopsy) Ortho: reports: Other /POT WASHER: reports: section, Tubal ligation - Family & Social History Family History Comment/Other: This is unknown since the patient is still somnolent and her postop condition but she is now in her ICU bed Living arrangement: At home Social History Notes: This is unknown since the patient is still somnolent and her postop condition but she is now in her ICU bed - POLST Patient has POLST: No Meds/Allgy - Home Medications Home Medications: Ambulatory Orders Medication Instructions Recorded Confirmed Omeprazole [Prilosec] 40 mg PO DAILY 05/19/14 03/14/23 - Allergies Allergies/Adverse Reactions: Allergies Allergy/AdvReac Type Severity Reaction Status Date / Time No Known Drug Allergies Allergy Verified 10/20/22 14:34 Review of Systems - All Other Systems All Other Systems: reports: Other (Unable to obtain due to pt w/ post-op obt undation) Exam - Vital Signs Reviewed Vital Signs: Yes Vital Signs: Vital Signs x48h Temp Pulse Resp BP Pulse Ox 03/14/23 11:07 36.9 C 109 H 16 124/74 97 03/14/23 11:00 36.9 C 111 H 16 120/92 H 97 03/14/23 10:52 36.9 C 111 H 16 132/85 H 97 03/14/23 10:50 36.9 C 112 H 18 136/91 H 97 03/14/23 10:38 36.9 C 107 H 20 147/82 H 100 03/14/23 10:32 96.9 C H 102 H 20 129/75 100 03/14/23 10:25 108 H 18 89/75 L 03/14/23 06:28 36.4 C L 83 16 128/76 95 - Physical Exam General Appearance: positive: Lethargic, Other (She is speaking, words are slurred, she just got Dilaudid. She his obese.) Eyes Bilateral: positive: Normal inspection, No lid inflammation ENT: positive: ENT inspection nml, No signs of dehydration Neck: positive: Nml inspection, No JVD Respiratory: positive: No respiratory distress, Breath sounds nml Cardiovascular: positive: Regular rate & rhythm, No murmur Abdomen: positive: Other (Obese, external bandages in place on abdomen which appear dry) Skin: positive: No rash, Warm, Dry Extremities: positive: Nml appearance, No pedal edema Neurologic/Psychiatric: positive: Other (She is lethargic, post-op and after getting iv narcotics. She is moving all extremities spontaneous) Conclusion/Plan - Problem List (1) Hypotension Conclusion/Plan: Likely from the bleeding in OR. 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 Anesthesia provider gave her 2 U PRBCs and the bleeding was controlled. Plan: Admit to ICU Monitor VS closely, hourly or more frequently. Hold any home meds that would add to hypotension. Follow Hgb, and transfuse if <7 or if bleeding occurs and Hgb <8. Will follow Hgb q8h. Have blood available. Obtain STAT CMP, CBC w/ diff and baseline INR Use SCDs for DVT prophylaxis Start empiric Pepcid iv BID for stress ulcer prophylaxis (2) ST segment elevation Conclusion/Plan: THis was seen in the oR on telemetry, not on a 12-lead EKG. By the time she did have a 12-lead EKG, her BP had improved and there were no ST segment elevations. I interpreted the EKG done today, it showed: Sinus rhythm, rate 95, left axis deviation, left atrial enlargement, borderline prolonged QT at 492 msec, lateral ST segment depressions 0.5 mm in V5 and V6. Plan: Obtain STAT troponin now and in 2-3 hours Avoid hypotension (3) COLLEEN on CPAP Conclusion/Plan: Plan: I will order her home CPAP unit to be used while she is here. (4) Status post cholecystectomy Conclusion/Plan: Orders for diet and pain meds and post-op care will be as per Gen Surgeon. I discussed the case after admission again with the general surgeon, Dr. Hunter. - Lab Results Lab results reviewed: Yes Fish Bones: 03/14/23 11:01 03/14/23 11:01 - Diagnostic Imaging Results Diagnostic Imaging Results: positive: Final report reviewed - EKG Results EKG Interpreted Independently: Yes EKG Comparison: Changed from prior EKG EKG Findings: I interpreted the EKG done today, it showed: Sinus rhythm, rate 95, left axis deviation, left atrial enlargement, borderline prolonged QT at 492 msec, lateral ST segment depressions 0.5 mm in V5 and V6. Since EKG from 11/25/2021, left atrial enlargement, QT prolongation and ST segment depressions are new.
[2023-03-14 11:21] LABS: ALBUMIN 3.3 g/dL (3.2-5.5); ALBUMIN/GLOBULIN RATIO 1.7 (1.0-2.2); BILIRUBIN,TOTAL 0.4 mg/dL (0.2-1.0); CALCIUM 8.4 mg/dL (8.5-10.3); CREATININE 0.9 mg/dL (0.6-1.3); POTASSIUM 3.9 mmol/L (3.5-4.5); TOTAL PROTEIN 5.2 g/dL (6.4-8.9)
[2023-03-14 11:23] LABS: INR 1.1 (0.8-1.2); PT - PROTHROMBIN TIME 11.9 secs (9.9-12.6)
[2023-03-14] MEDS: SODIUM CHLORIDE 0.9% 1,000 ML IV SCH ×2 (11:30→17:48)
--- NOTE | 2023-03-14 11:30 | OPERATIVE REPORT ---
Operative Report - General Admit Date: 03/14/23 Procedure Date: 03/14/23 Planned Procedure: Laparoscopic cholecystectomy, possible open cholecystectomy, possible intraoperative cholangiogram, possible common bile duct exploration Pre-Op Diagnosis: Symptomatic cholelithiasis Procedure Performed: Laparoscopic cholecystectomy converted to open cholecystectomy with control of intraoperative bleeding Post Op Diagnosis: Symptomatic cholelithiasis and intraoperative blood loss from the cystic ar - Procedure Note Primary Surgeon: Dustin Hunter MD Secondary Surgeon: Arnulfo Justice MD Anesthesia Provider: Tanya Blanco CRNA Anesthesia Technique: General ET tube, Local (20 mL of 1% lidocaine with epinephrine) IV Fluids (mL): 2,600 (2000 crystalloid, 2 units packed red blood cells) Estimated Blood Loss (mL): 1,000 Drain/Tube Type: Other (None.) Indications: Symptomatic cholelithiasis. Findings: See operative report. Complications: Bleeding from the cystic artery requiring conversion to open. - Other Other Information/Narrative: After verbal and written informed consent was obtained detailing the operation, the alternatives to the operation including no operation, risks of infection, bleeding requiring transfusion with its risks, nerve injury, and and after I met with the patient confirming the surgery, the patient was brought to the operative suite and placed supine on the operating table. Great care was taken to avoid pressure points to prevent pressure necrosis or nerve injury. Monitoring devices were applied along with TEDs and pneumatic compressive stockings (to prevent DVT). The patient received preoperative antibiotics for surgical prophylaxis. Tanya Blanco CRNA sedated and anesthetized the patient for the entire procedure. The patient was prepped and draped in usual sterile manner. A "time in" then confirmed that the patient was identified with 3 identifiers (name, date, and medical record number), the history and physical was in the chart, the signed consent confirming the procedure was in the chart, the patient was in the correct position, the aforementioned prophylactic measures were in place were given, we had the correct personnel and equipment to complete the procedure and that anesthesia, and the surgical team was given an opportunity to express any concerns. With the agreement of everyone in the room, we proceeded with the operation. The initial incision was at the umbilicus and dissection to the linea alba was c ompleted using blunt dissection. The linea alba was grasped with a Jose and incised. In a similar manner the peritoneum was grasped and incised using Metzenbaum scissors. In this location, a 12 mm blunt tipped, balloon tipped port was placed and the balloon was inflated to keep the port in position. The abdominal cavity was insufflated with carbon dioxide to a steady-state pressure of 15 mmHg. 3 additional 5 mm ports were placed in standard locations for laparoscopic cholecystectomy (subxiphoid and 2 right subcostal) under direct vision of the 30 degree laparoscope and without incident. The patient was then placed in reverse Trendelenburg position and was rotated slightly to their left. There was difficulty grasping the gallbladder fundus as the gallbladder was packed full of rather large stones. Numerous attempts were required in order to grab it with the ratcheting grasper. There were adhesions of the gallbladder to the right side of the liver which were taken down using blunt dissection. Eventually, I identified the infundibulum and this was then grasped and retracted superiorly and laterally. Dissection was then begun at the angle of Calot. The cystic duct was clearly identified. The critical view was obtained and a photograph taken. 2 clips proximally and one clip distally were used to control the cystic duct. The clips were carefully placed to avoid occluding the juncture with the common bile duct. In order to free up the gallbladder to place the scissor behind the cystic duct I dissected laterally along the right side of the gallbladder attempting to free it up from the liver bed and in so doing I encountered significant arterial bleeding. This was controlled using an application of a clip. Dissection was then taken more medially and in so doing a larger arterial branch was encountered. I transected the cystic duct between the aforementioned clips in order to visualize the arterial bleed as this was directly behind the cystic duct. The bleeding was forceful enough that it could not be appropriately seen and thus could not be appropriately controlled with endoclips. Application of pressure did control the bleeding but not enough to allow for adequate visualization. As I could not visualize the bleeding to allow for control I elected to open the patient. The laparoscopic equipment was removed and a right upper quadrant incision was made connecting the subxiphoid incision along with the midclavicular incision. At this point in time I was informed by Tanya Blanco that the patient's telemetry was consistent with cardiac ischemia. Tanya Blanco then requested and had Christo Ramirez CRNA in the room helping her in the administration of anesthesia and in the work-up and treatment of cardiac ischemia. I was informed that nitrates were given and an EKG was ordered. The patient's blood pressure was supported and 2 units of packed red blood cells were ordered and given. Dr. Elizabeth Cadena was consulted intraoperatively for evaluation and eventual work- up and care in our intensive care unit. With this intensive approach the ischemic changes seem to have resolved. I called for surgical assistance and Dr. Arnulfo Justice was kind enough to come in and assist. The anterior fascia was incised using Bovie electrocautery as water the rectus muscles. The posterior fascia and peritoneum were similarly incised using Bovie electrocautery gaining entry into the abdomen without incident. A rather large amount of blood was removed. The large stone filled gallbladder was directly in the way of appropriate visualization of the bleeding. While holding pressure at the area of bleeding the gallbladder was taken down in a top-down manner using Bovie electrocautery. The gallbladder was removed from the operative field allowing for proper visualization of the cystic artery. The area was packed using Surgicel along with pressure and in so doing, after approximately 5 minutes, the bleeding had slowed enough to visualize the cystic artery and this was controlled using two 3-0 Vicryl [id number] sutures. This was then packed and held for 5 minutes and reexamined and hemostasis was noted to be present. The right upper quadrant and subhepatic space were copiously irrigated using warm sterile saline. The cystic artery was again examined and there was no bleeding. Out of an abundance of caution I placed new Surgicel in this area and left in place. There was no bleeding or bile leak from the right upper quadrant. I briefly visually explored the abdomen. There was no other evidence of overt pathology. The posterior fascia was approximated using a running 0 looped PDS. The anterior fascia was similarly closed using a running 0 looped PDS. The fascia the umbilicus was approximated using a [id number] 0 Vicryl sutures. The skin at the 2 port sites as well as the right upper quadrant incision was approximated using skin jani. At this point a "timeout" was performed that confirmed that all counts were correct, the procedure that was performed, the blood loss, the IV fluids administered, the patient's condition and any concerns of the operating team had. Dressings were then applied. Having tolerated the procedure well, the patient was extubated and taken to recovery room in good and stable condition. The plan is for ICU admission with Dr. Cadena on consultation to ensure that there are no ongoing cardiac issues. ICD-10 V64.41 CPT 15609 This document was created in part using voice recognition technology. Because of the inherent limitations of the system, occasional same sounding word substitutions and grammatical errors do occur and persist despite proofreading. Please read this document for context.
--- NOTE | 2023-03-14 11:42 | XRAY Report ---
PROCEDURE: Chest for Line Placement INDICATIONS: Acute SD TECHNIQUE: One view of the chest was acquired. COMPARISON: CT chest dated 05/10/2022 FINDINGS: Surgical changes and devices: Surgical clips in the right upper quadrant likely from prior cholecyst ectomy. A nasogastric tube is in place with the distal tip and side-port extending below the level of the diaphragm. Distal tip projects over the expected location of the gastric antrum. Lungs and pleura: No pleural effusions or pneumothorax. Lungs are clear. Mediastinum: Mediastinal contours appear normal. Heart size is normal. Bones and chest wall: No suspicious bony lesions. Overlying soft tissues appear unremarkable. IMPRESSION: No acute cardiopulmonary process. Nasogastric tube in place and appears appropriately positioned. Reviewed by: Dixon Bernstein MD on 03/14/2023 11:41 AM PDT Approved by: Dixon Bernstein MD on 03/14/2023 11:41 AM PDT Station ID: [id number]
[2023-03-14 11:53] LABS: PLATELET MORPHOLOGY NORMAL APPEARANCE (NORMAL); RBC MORPHOLOGY (MULTIPLE) NORMAL APPEARANCE (NORMAL)
[2023-03-14 11:54] LABS: DIFFERENTIAL COMMENT MANUAL=AUTO DIFF
[2023-03-14] MEDS: MORPHINE 2 MG/ML CARPUJECT IVP PRN ×3 (12:04→21:41)
[2023-03-14] MEDS: SODIUM CHLORIDE FLUSH 0.9% 10 ML SYRINGE IVP SCH (12:09)
[2023-03-14] MEDS ORDERED: MAGNESIUM SULFATE 2 GRAM 2 GM/50 ML BAG IV ONE (12:42)
[2023-03-14 12:55] LABS: TROPONIN I HIGH SENSITIVITY 13.1 ng/L (2.3-14.8)
--- NOTE | 2023-03-14 14:13 | ANESTHESIA POST OP EVALUATION ---
Anesthesia Post Eval - Post Anesthesia Eval Vitals: Last Vital Signs Temp 36.3 C L 03/14/23 12:30 Pulse 103 H 03/14/23 13:00 Resp 17 03/14/23 13:00 BP 125/91 H 03/14/23 13:00 Pulse Ox 97 03/14/23 13:00 O2 Flow Rate 2 03/14/23 13:00 CV Function Including HR & BP: Stable (VSS, 2nd troponin 18.3 from 13.1, 2 hours apart.) Pain Control: Satisfactory Nausea & Vomiting: Negative Mental Status: Baseline Respiratory Status: Airway Patent Hydration Status: Satisfactory Anesthesia Complications: None
[2023-03-14] MEDS: fentaNYL 100 MCG/2 ML VIAL IVP PRN ×7 (14:20→22:22)
[2023-03-14] MEDS: FAMOTIDINE 20 MG/2 ML VIAL IVP SCH ×2 (14:25→21:04)
--- NOTE | 2023-03-14 14:32 | PHARMACY PROGRESS NOTE ---
- Best Possible Medication History Admit Date and Time: 03/14/23 0922 Processed by: Pharmacy Medication History completed: Yes Patient Interview: Pt unable to participate Secondary Source(s): Pharmacy records, Insurance records As the person ultimately responsible for medication therapy, providers are able to order a medication from an existing home medication list in [facility] via the "Reconcile Routine" prior to Confirmation of that medication by sales support assistant. Such practice is discouraged except when the physician, in their clinical judgment, deems that a medical need exists for a medication without regard to previous use.
[2023-03-14] MEDS ORDERED: SODIUM CHLORIDE FLUSH 0.9% 10 ML SYRINGE IVP SCH (17:00)
[2023-03-14 17:47] LABS: BUN - BLOOD UREA NITROGEN 13 mg/dL (6-20); CALCIUM 8.9 mg/dL (8.5-10.3); CARBON DIOXIDE - CO2 24 mmol/L (21-32); CHLORIDE 109 mmol/L (101-111); CREATININE 0.9 mg/dL (0.6-1.3); GFR - MDRD 63 (>89); GLUCOSE 189 mg/dL (74-104); IONIZED CALCIUM IF INDICATED NO; MAGNESIUM 2.3 mg/dL (1.7-2.3); POTASSIUM 4.8 mmol/L (3.5-4.5); SODIUM 140 mmol/L (135-145)
[2023-03-15] MEDS: SODIUM CHLORIDE FLUSH 0.9% 10 ML SYRINGE IVP SCH ×4 (00:19→20:55)
[2023-03-15] MEDS: MORPHINE 2 MG/ML CARPUJECT IVP PRN ×4 (00:19→19:51)
[2023-03-15] MEDS: SODIUM CHLORIDE 0.9% 1,000 ML IV SCH ×2 (04:02→16:43)
[2023-03-15 04:43] LABS: BASOPHILS % (AUTO) 0.2 %; HGB - HEMOGLOBIN 12.5 g/dL (12.0-16.0); LYMPHOCYTES # (AUTO) 1.4 10^3/uL (1.5-3.5); LYMPHOCYTES % (AUTO) 7.7 %; MEAN CORPUSCULAR HGB CONC 32.1 g/dL (32.0-36.0); MEAN CORPUSCULAR VOLUME 93.8 fL (81.0-99.0); MONOCYTES # (AUTO) 1.3 10^3/uL (0.0-1.0); MONOCYTES % (AUTO) 7.6 %; NEUTROPHILS # (AUTO) 14.8 10^3/uL (1.5-6.6); PLT - PLATELET COUNT 197 10^3/uL (130-450); RED BLOOD COUNT 4.16 10^6/uL (4.20-5.40); WHITE BLOOD COUNT 17.6 x10^3/uL (4.8-10.8)
[2023-03-15 04:49] LABS: CALCIUM, IONIZED 1.11 mmol/L (1.15-1.33); VBG PH 7.384 (7.31-7.41)
[2023-03-15 05:02] LABS: ALBUMIN 3.5 g/dL (3.2-5.5); ALBUMIN/GLOBULIN RATIO 1.7 (1.0-2.2); BILIRUBIN,TOTAL 0.6 mg/dL (0.2-1.0); CALCIUM 8.8 mg/dL (8.5-10.3); CREATININE 0.9 mg/dL (0.6-1.3); MAGNESIUM 2.1 mg/dL (1.7-2.3); PHOSPHORUS 2.6 mg/dL (2.5-5.0); POTASSIUM 4.4 mmol/L (3.5-4.5); TOTAL PROTEIN 5.6 g/dL (6.4-8.9)
[2023-03-15] MEDS: fentaNYL 100 MCG/2 ML VIAL IVP PRN ×4 (08:52→20:55)
[2023-03-15] MEDS: FAMOTIDINE 20 MG/2 ML VIAL IVP SCH ×2 (08:58→20:44)
[2023-03-15] MEDS: oxyCODONE 5 MG TABLET PO PRN ×3 (12:22→20:44)
--- NOTE | 2023-03-15 13:05 | PROVIDER PROGRESS NOTE ---
Subjective - General Admit Date: 03/14/23 Procedure Date: 03/14/23 Post Op Days: 1 Procedure Performed: Open cholecystectomy converted from laparoscopic for bleeding and cardiac i - Review of Systems Wound/Incisions: positive: Dressing dry and intact General: positive: No symptoms HEENT: positive: No symptoms Pulmonary: positive: No symptoms Cardiovascular: positive: No symptoms Gastrointestinal: positive: Abdominal pain (Postoperative incisional.). negative: Nausea, Vomiting Genitourinary: positive: No symptoms Musculoskeletal: positive: No symptoms Skin: positive: No symptoms Psychiatric: positive: No symptoms All Other Systems: positive: Other (Unable to obtain due to pt w/ post-op obtundation) Objective - Patient Data Reviewed Vital Signs: Yes Vital Signs: Vital Signs x48h Temp Pulse Resp BP Pulse Ox O2 Flow Rate 03/15/23 11:00 37.0 C 99 14 116/75 94 2 03/15/23 10:00 95 21 110/72 95 2 03/15/23 09:00 93 9 L 115/72 94 2 03/15/23 08:55 36.9 C 03/15/23 08:00 98 25 H 110/68 95 2 03/15/23 07:00 81 19 125/67 95 2 03/15/23 06:00 91 18 119/78 96 2 Weight: Weight 03/13/23 03/14/23 03/15/23 23:59 23:59 23:59 Weight (kg) 76 kg 78 kg Intake & Output: Intake and Output Totals x24h 03/13/23 03/14/23 03/15/23 23:59 23:59 23:59 Intake Total 680 1120 Output Total 2120 2060 Balance -1440 -940 - Lab Results Lab Results: 03/15/23 04:35 03/15/23 04:35 Other Lab Results: Lab Results x24hrs 03/15/23 03/15/23 03/15/23 Range/Units 09:25 04:35 04:35 WBC (4.8-10.8) x10^3/uL RBC (4.20-5.40) 10^6/uL Hgb (12.0-16.0) g/dL Hct (37.0-47.0) % MCV (81.0-99.0) fL MCH (27.0-31.0) pg MCHC (32.0-36.0) g/dL RDW (12.0-15.0) % Plt Count (130-450) 10^3/uL MPV (7.9-10.8) fL Neut # (Auto) (1.5-6.6) 10^3/uL Lymph # (Auto) (1.5-3.5) 10^3/uL [place] # (Auto) (0.0-1.0) 10^3/uL Eos # (Auto) (0.0-0.7) 10^3/uL Baso # (Auto) (0.0-0.1) 10^3/uL Absolute Nucleated RBC x10^3/uL Nucleated RBC % /100WBC VBG pH 7.384 (7.31-7.41) Sodium 140 (135-145) mmol/L Potassium 4.4 (3.5-4.5) mmol/L Chloride 111 (101-111) mmol/L Carbon Dioxide 24 (21-32) mmol/L Anion Gap 5.0 L (6-13) BUN 13 (6-20) mg/dL Creatinine 0.9 (0.6-1.3) mg/dL Estimated GFR (MDRD) 63 L (>89) Glucose 134 H (74-104) mg/dL Calcium 8.8 (8.5-10.3) mg/dL Ionized Calcium 1.11 L Phosphorus 2.6 (2.5-5.0) mg/dL Magnesium 2.1 (1.7-2.3) mg/dL Total Bilirubin 0.6 (0.2-1.0) mg/dL AST 46 H (10-42) IU/L ALT 42 (10-60) IU/L Alkaline Phosphatase 48 (42-121) IU/L Troponin I High Sens 64.1 H* (2.3-14.8) ng/L Total Protein 5.6 L (6.4-8.9) g/dL Albumin 3.5 (3.2-5.5) g/dL Globulin 2.1 (2.1-4.2) g/dL Albumin/Globulin Ratio 1.7 (1.0-2.2) Nasal Screen MRSA (PCR) (NEGATIVE) Crossmatch IS Only 03/15/23 03/14/23 03/14/23 Range/Units 04:35 17:19 17:19 WBC 17.6 H (4.8-10.8) x10^3/uL RBC 4.16 L (4.20-5.40) 10^6/uL Hgb 12.5 (12.0-16.0) g/dL Hct 39.0 (37.0-47.0) % MCV 93.8 (81.0-99.0) fL MCH 30.0 (27.0-31.0) pg MCHC 32.1 (32.0-36.0) g/dL RDW 14.0 (12.0-15.0) % Plt Count 197 (130-450) 10^3/uL MPV 10.0 (7.9-10.8) fL Neut # (Auto) 14.8 H (1.5-6.6) 10^3/uL Lymph # (Auto) 1.4 L (1.5-3.5) 10^3/uL [place] # (Auto) 1.3 H (0.0-1.0) 10^3/uL Eos # (Auto) 0.0 (0.0-0.7) 10^3/uL Baso # (Auto) 0.0 (0.0-0.1) 10^3/uL Absolute Nucleated RBC 0.00 x10^3/uL Nucleated RBC % 0.0 /100WBC VBG pH (7.31-7.41) Sodium 140 (135-145) mmol/L Potassium 4.8 H (3.5-4.5) mmol/L Chloride 109 (101-111) mmol/L Carbon Dioxide 24 (21-32) mmol/L Anion Gap 7.0 (6-13) BUN 13 (6-20) mg/dL Creatinine 0.9 (0.6-1.3) mg/dL Estimated GFR (MDRD) 63 L (>89) Glucose 189 H (74-104) mg/dL Calcium 8.9 (8.5-10.3) mg/dL Ionized Calcium NO Phosphorus (2.5-5.0) mg/dL Magnesium 2.3 (1.7-2.3) mg/dL Total Bilirubin (0.2-1.0) mg/dL AST (10-42) IU/L ALT (10-60) IU/L Alkaline Phosphatase (42-121) IU/L Troponin I High Sens 28.2 H* (2.3-14.8) ng/L Total Protein (6.4-8.9) g/dL Albumin (3.2-5.5) g/dL Globulin (2.1-4.2) g/dL Albumin/Globulin Ratio (1.0-2.2) Nasal Screen MRSA (PCR) (NEGATIVE) Crossmatch IS Only 03/14/23 03/14/23 03/14/23 Range/Units 17:19 13:00 10:40 WBC (4.8-10.8) x10^3/uL RBC (4.20-5.40) 10^6/uL Hgb 14.3 (12.0-16.0) g/dL Hct (37.0-47.0) % MCV (81.0-99.0) fL MCH (27.0-31.0) pg MCHC (32.0-36.0) g/dL RDW (12.0-15.0) % Plt Count (130-450) 10^3/uL MPV (7.9-10.8) fL Neut # (Auto) (1.5-6.6) 10^3/uL Lymph # (Auto) (1.5-3.5) 10^3/uL [place] # (Auto) (0.0-1.0) 10^3/uL Eos # (Auto) (0.0-0.7) 10^3/uL Baso # (Auto) (0.0-0.1) 10^3/uL Absolute Nucleated RBC x10^3/uL Nucleated RBC % /100WBC VBG pH (7.31-7.41) Sodium (135-145) mmol/L Potassium (3.5-4.5) mmol/L Chloride (101-111) mmol/L Carbon Dioxide (21-32) mmol/L Anion Gap (6-13) BUN (6-20) mg/dL Creatinine (0.6-1.3) mg/dL Estimated GFR (MDRD) (>89) Glucose (74-104) mg/dL Calcium (8.5-10.3) mg/dL Ionized Calcium Phosphorus (2.5-5.0) mg/dL Magnesium (1.7-2.3) mg/dL Total Bilirubin (0.2-1.0) mg/dL AST (10-42) IU/L ALT (10-60) IU/L Alkaline Phosphatase (42-121) IU/L Troponin I High Sens 18.3 H* (2.3-14.8) ng/L Total Protein (6.4-8.9) g/dL Albumin (3.2-5.5) g/dL Globulin (2.1-4.2) g/dL Albumin/Globulin Ratio (1.0-2.2) Nasal Screen MRSA (PCR) NEGATIVE (NEGATIVE) Crossmatch IS Only 03/14/23 Range/Units 08:59 WBC (4.8-10.8) x10^3/uL RBC (4.20-5.40) 10^6/uL Hgb (12.0-16.0) g/dL Hct (37.0-47.0) % MCV (81.0-99.0) fL MCH (27.0-31.0) pg MCHC (32.0-36.0) g/dL RDW (12.0-15.0) % Plt Count (130-450) 10^3/uL MPV (7.9-10.8) fL Neut # (Auto) (1.5-6.6) 10^3/uL Lymph # (Auto) (1.5-3.5) 10^3/uL [place] # (Auto) (0.0-1.0) 10^3/uL Eos # (Auto) (0.0-0.7) 10^3/uL Baso # (Auto) (0.0-0.1) 10^3/uL Absolute Nucleated RBC x10^3/uL Nucleated RBC % /100WBC VBG pH (7.31-7.41) Sodium (135-145) mmol/L Potassium (3.5-4.5) mmol/L Chloride (101-111) mmol/L Carbon Dioxide (21-32) mmol/L Anion Gap (6-13) BUN (6-20) mg/dL Creatinine (0.6-1.3) mg/dL Estimated GFR (MDRD) (>89) Glucose (74-104) mg/dL Calcium (8.5-10.3) mg/dL Ionized Calcium Phosphorus (2.5-5.0) mg/dL Magnesium (1.7-2.3) mg/dL Total Bilirubin (0.2-1.0) mg/dL AST (10-42) IU/L ALT (10-60) IU/L Alkaline Phosphatase (42-121) IU/L Troponin I High Sens (2.3-14.8) ng/L Total Protein (6.4-8.9) g/dL Albumin (3.2-5.5) g/dL Globulin (2.1-4.2) g/dL Albumin/Globulin Ratio (1.0-2.2) Nasal Screen MRSA (PCR) (NEGATIVE) Crossmatch IS Only See Detail - Current Medications Current Medications: Current Medications Generic Name Dose Route Start Last Admin Trade Name Freq PRN Reason Stop Dose Admin Famotidine 20 mg 03/14/23 10:00 03/15/23 08:58 Famotidine 20 Mg/2 Ml Vial IVP 20 mg BID MARIE Administration Fentanyl 50 mcg 03/14/23 14:09 03/15/23 11:01 Fentanyl 100 Mcg/2 Ml Vial IVP 50 mcg Q1HR PRN Administration Severe Pain (Level 7-10) Sodium Chloride 1,000 mls @ 100 mls/hr 03/14/23 10:00 03/15/23 04:02 Normal Saline 0.9% IV 100 mls/hr .Q10H MARIE Administration Morphine Sulfate 2 mg 03/14/23 14:08 03/15/23 07:46 Morphine 2 Mg/Ml Carpuject IVP 2 mg Q1HR PRN Administration PAIN 5-7 Oxycodone HCl 5 mg 03/15/23 11:12 03/15/23 12:22 Oxycodone 5 Mg Tablet PO 5 mg Q4HR PRN Administration Moderate Pain (Level 4-6) Sodium Chloride 10 ml 03/14/23 17:00 03/15/23 00:19 Sodium Chloride Flush 0.9% 10 Ml Syringe IVP Not Given 0100,0900,1700 [facility] - Physical Exam Wound/Incisions: positive: Dressing dry and intact General Appearance: positive: No acute distress Eyes Bilateral: positive: No lid inflammation, Conjunctivae nml, No scleral icterus ENT: positive: Dry mucous membranes Neck: positive: Trachea midline Respiratory: positive: Chest non-tender, No respiratory distress, Breath sounds nml Cardiovascular: positive: Regular rate & rhythm (Bordering on tachycardic.) Abdomen: positive: Tenderness (Incisional.), Abnml bowel sounds (Slightly decreased.) Extremities: positive: Non-tender, Nml appearance Neurologic/Psychiatric: positive: Oriented x3, CN's nml (2-12), Motor nml, Sensation nml, Mood/affect nml ABX Reporting Has patient been on IV antibiotics over the past 48 hours?: Yes Impression/Plan - Problem List Problem List: D1 s/p open cholecystectomy converted from laparoscopic for bleeding with cardiac instability 1) FEN Will continue IVF but order(ed) general diet with patient to pick and choose. No immediate need for electrolyte replacement. 2) Bleeding Stable without evidence of ongoing blood loss. If necessary (see below) okay to start aspirin but would avoid Plavix at this time. 3) Cardiac First off appreciate Dr. Cadena's involvement and input. After my discussion with Dr. Cadena and a review of the labs it is clear that jeniffer rosario had an myocardial infarction. ECHO has been ordered and pending. There is no evidence of ongoing ischemia I discussed the need that patient stop smoking and will order a 21 mcg patch to help with cravings. 4) Activity The incision used for an open cholecystectomy is half of the most painful incision made in all of general surgery so there is no question about the patient's discomfort. Oral pain medications have been prescribed with IV opiates for breakthrough pain. Despite this pain it is of utmost importance that we get the patient ambulatory. 5) ID No indication of infection - no antibiotics indicated. 6) Laurent Removed this AM. 7) Wound Silver dressings CAN be left on for 2 weeks. That is not what is going to happen here - I will remove prior to discharge or in office.
[2023-03-15] MEDS: NICOTINE 21 MG PATCH TOP SCH (16:37)
--- NOTE | 2023-03-15 18:05 | PROVIDER PROGRESS NOTE ---
Subjective - Subjective Pt reports feeling: Improved (She is awake, denies shortness of breath or chest pain. She has positional pain in the right upper quadrant where she has her incision from her open cholecystectomy) Objective - Vital Signs/Intake & Output Reviewed Vital Signs: Yes Vital Signs: Vital Signs Temp Pulse Resp BP Pulse Ox 03/15/23 17:00 37.2 C 106 H 26 H 132/66 H 97 Intake & Output: Intake & Output 03/12/23 03/13/23 03/14/23 03/15/23 23:59 23:59 23:59 23:59 Intake Total 680 2870 Output Total 2120 2060 Balance -1440 810 - Objective General Appearance: positive: No acute distress, Alert Eyes Bilateral: positive: Normal inspection, No lid inflammation ENT: positive: ENT inspection nml, No signs of dehydration Neck: positive: Nml inspection, No JVD Respiratory: positive: No respiratory distress, Breath sounds nml Cardiovascular: positive: Regular rate & rhythm, No murmur (Distant heart sounds due to large breasts) Abdomen: positive: Other (Mildly distended, soft, nontender in the lower quadrants, has bandage in RUQ) Skin: positive: Warm, Dry Extremities: positive: Non-tender, No pedal edema Neurologic/Psychiatric: positive: Oriented x3, CN's nml (2-12), Motor nml - Lab Results Fish Bones: 03/15/23 15:54 03/15/23 04:35 Other Labs: Lab Results x24hrs 03/15/23 03/15/23 03/15/23 Range/Units 15:54 09:25 04:35 WBC (4.8-10.8) x10^3/uL RBC (4.20-5.40) 10^6/uL Hgb 11.4 L (12.0-16.0) g/dL Hct (37.0-47.0) % MCV (81.0-99.0) fL MCH (27.0-31.0) pg MCHC (32.0-36.0) g/dL RDW (12.0-15.0) % Plt Count (130-450) 10^3/uL MPV (7.9-10.8) fL Neut # (Auto) (1.5-6.6) 10^3/uL Lymph # (Auto) (1.5-3.5) 10^3/uL [place] # (Auto) (0.0-1.0) 10^3/uL Eos # (Auto) (0.0-0.7) 10^3/uL Baso # (Auto) (0.0-0.1) 10^3/uL Absolute Nucleated RBC x10^3/uL Nucleated RBC % /100WBC VBG pH 7.384 (7.31-7.41) Ionized Calcium 1.11 L (1.15-1.33) mmol/L Sodium (135-145) mmol/L Potassium (3.5-4.5) mmol/L Chloride (101-111) mmol/L Carbon Dioxide (21-32) mmol/L Anion Gap (6-13) BUN (6-20) mg/dL Creatinine (0.6-1.3) mg/dL Estimated GFR (MDRD) (>89) Glucose (74-104) mg/dL Calcium (8.5-10.3) mg/dL Phosphorus (2.5-5.0) mg/dL Magnesium (1.7-2.3) mg/dL Total Bilirubin (0.2-1.0) mg/dL AST (10-42) IU/L ALT (10-60) IU/L Alkaline Phosphatase (42-121) IU/L Troponin I High Sens 64.1 H* (2.3-14.8) ng/L Total Protein (6.4-8.9) g/dL Albumin (3.2-5.5) g/dL Globulin (2.1-4.2) g/dL Albumin/Globulin Ratio (1.0-2.2) 03/15/23 03/15/23 03/14/23 Range/Units 04:35 04:35 17:19 WBC 17.6 H (4.8-10.8) x10^3/uL RBC 4.16 L (4.20-5.40) 10^6/uL Hgb 12.5 (12.0-16.0) g/dL Hct 39.0 (37.0-47.0) % MCV 93.8 (81.0-99.0) fL MCH 30.0 (27.0-31.0) pg MCHC 32.1 (32.0-36.0) g/dL RDW 14.0 (12.0-15.0) % Plt Count 197 (130-450) 10^3/uL MPV 10.0 (7.9-10.8) fL Neut # (Auto) 14.8 H (1.5-6.6) 10^3/uL Lymph # (Auto) 1.4 L (1.5-3.5) 10^3/uL [place] # (Auto) 1.3 H (0.0-1.0) 10^3/uL Eos # (Auto) 0.0 (0.0-0.7) 10^3/uL Baso # (Auto) 0.0 (0.0-0.1) 10^3/uL Absolute Nucleated RBC 0.00 x10^3/uL Nucleated RBC % 0.0 /100WBC VBG pH (7.31-7.41) Ionized Calcium (1.15-1.33) mmol/L Sodium 140 (135-145) mmol/L Potassium 4.4 (3.5-4.5) mmol/L Chloride 111 (101-111) mmol/L Carbon Dioxide 24 (21-32) mmol/L Anion Gap 5.0 L (6-13) BUN 13 (6-20) mg/dL Creatinine 0.9 (0.6-1.3) mg/dL Estimated GFR (MDRD) 63 L (>89) Glucose 134 H (74-104) mg/dL Calcium 8.8 (8.5-10.3) mg/dL Phosphorus 2.6 (2.5-5.0) mg/dL Magnesium 2.1 (1.7-2.3) mg/dL Total Bilirubin 0.6 (0.2-1.0) mg/dL AST 46 H (10-42) IU/L ALT 42 (10-60) IU/L Alkaline Phosphatase 48 (42-121) IU/L Troponin I High Sens 28.2 H* (2.3-14.8) ng/L Total Protein 5.6 L (6.4-8.9) g/dL Albumin 3.5 (3.2-5.5) g/dL Globulin 2.1 (2.1-4.2) g/dL Albumin/Globulin Ratio 1.7 (1.0-2.2) Assessment/Plan - Problem List (1) Status post cholecystectomy Impression: Management as per general surgery (2) Acute non-ST elevation myocardial infarction (NSTEMI) Impression: All labs were reviewed. The troponin has risen from 12 up to 64 today, this is a slow climb but it has more than doubled. The total is very low and suggests that she had a very small "nontransmural" MT. Her hypotension was the "stress test to her heart", or alternatively this could be considered "demand ischemia" since the low BP did not meet her perfusion demands. Plan: Await Echocardiogram results to look for regional wall motion abnormalities, Echo to be done today We will check her fasting lipid panel and treat per guidelines She needs to be started on 1 baby aspirin daily and beta-mandie for post MT treatment. I discussed the case with Dr. Hunter and this will be started today. Depending on the rest of her hospital course here, she will either be advised to be transferred to a hospital with higher level of care to undergo coronary angiography, or will be advised to have light activity at home after discharge and then meet with a salvage mechanic as an outpatient, after discharge from this hospitalization. I told the patient this plan today. (3) COLLEEN on CPAP Impression: Plan: She now has her home CPAP device, ordered to be used here (4) Hypotension Impression: Resolved with blood transfusions and crystalloid IV resuscitation Plan: Continue to monitor every 4 hours vitals When she starts to get OOB, will order orthostatic vital sign checks I agree that she is stable to be transferred out of the ICU, to [facility] (5) ST segment elevation Impression: Resolved in OR, after her hypotension was corrected
[2023-03-15] MEDS: carvediloL 3.125 MG TABLET PO SCH (20:44)
[2023-03-16] MEDS: oxyCODONE 5 MG TABLET PO PRN ×3 (00:25→10:40)
[2023-03-16] MEDS: SODIUM CHLORIDE 0.9% 1,000 ML IV SCH ×3 (03:13→13:45)
[2023-03-16] MEDS: SODIUM CHLORIDE FLUSH 0.9% 10 ML SYRINGE IVP SCH ×3 (04:50→17:07)
[2023-03-16 04:52] LABS: CALCIUM, IONIZED 1.13 mmol/L (1.15-1.33); VBG PH 7.45 (7.31-7.41)
[2023-03-16 05:09] LABS: CHOL/HDL RATIO 3.2 (<4.4); CHOLESTEROL 118 mg/dL; HDL CHOLESTEROL 37 mg/dL; LDL CHOLESTEROL,CALCULATED 66 mg/dL; LDL/HDL RATIO 1.8 (<4.4); TRIGLYCERIDES 74 mg/dL (48-352); VLDL CHOLESTEROL 15 mg/dL
[2023-03-16 05:11] LABS: ALBUMIN 3.3 g/dL (3.2-5.5); ALBUMIN/GLOBULIN RATIO 1.6 (1.0-2.2); BILIRUBIN,TOTAL 1.1 mg/dL (0.2-1.0); CALCIUM 8.9 mg/dL (8.5-10.3); CREATININE 0.9 mg/dL (0.6-1.3); PHOSPHORUS 1.8 mg/dL (2.5-5.0); POTASSIUM 4.2 mmol/L (3.5-4.5); TOTAL PROTEIN 5.4 g/dL (6.4-8.9)
[2023-03-16] MEDS: NICOTINE 21 MG PATCH TOP SCH ×2 (08:14→08:18)
[2023-03-16] MEDS: carvediloL 3.125 MG TABLET PO SCH ×2 (08:14→20:31)
[2023-03-16] MEDS: FAMOTIDINE 20 MG/2 ML VIAL IVP SCH ×2 (08:14→20:30)
[2023-03-16] MEDS: ASPIRIN EC 81 MG TABLET PO SCH (08:14)
[2023-03-16 09:54] LABS: BASOPHILS % (AUTO) 0.3 %; EOSINOPHILS % (AUTO) 0.1 %; HCT - HEMATOCRIT 31.3 % (37.0-47.0); HGB - HEMOGLOBIN 9.9 g/dL (12.0-16.0); LYMPHOCYTES # (AUTO) 1.7 10^3/uL (1.5-3.5); LYMPHOCYTES % (AUTO) 14.8 %; MEAN CORPUSCULAR HEMOGLOBIN 30.2 pg (27.0-31.0); MEAN CORPUSCULAR HGB CONC 31.6 g/dL (32.0-36.0); MEAN CORPUSCULAR VOLUME 95.4 fL (81.0-99.0); MEAN PLATELET VOLUME 10.3 fL (7.9-10.8); MONOCYTES % (AUTO) 8.8 %; NEUTROPHILS # (AUTO) 8.5 10^3/uL (1.5-6.6); NEUTROPHILS % (AUTO) 75.6 %; PLT - PLATELET COUNT 147 10^3/uL (130-450); RED BLOOD COUNT 3.28 10^6/uL (4.20-5.40); RED CELL DISTRIBUTION WIDTH 13.8 % (12.0-15.0); WHITE BLOOD COUNT 11.2 x10^3/uL (4.8-10.8)
[2023-03-16] MEDS: NEUTRA-PHOS 250 MG TABLET PO SCH ×2 (11:57→17:06)
--- NOTE | 2023-03-16 14:43 | PROVIDER PROGRESS NOTE ---
Assessment/Plan - Problem List (1) Status post cholecystectomy Assessment/Plan: Management as per general surgery (2) Acute non-ST elevation myocardial infarction (NSTEMI) Impression: All labs were reviewed. The troponin rosefrom 12 up to 64 then declines, this was a slow climb but it has more than doubled. The total is very low and suggests that she had a very small "nontransmural" CA. Her hypotension was the "stress test to her heart". Or alternatively explained, this could be considered "demand ischemia" since the low BP did not meet her cardiac perfusion demands. The Echocardiogram showed no regional wall motion abnormalities at rest, consistent with very minor cardiac damage Her fasting lipid panel shows LDL of Plan: Cont on 1 baby aspirin daily and beta-mandie for post CA treatment. Since she has had no cardiac complications, she does not require transfer to a hospital with higher level of care to undergo urgent coronary angiography. She may be discharged and be seen by a Bankruptcy Law Specialist as an outpatient. She will be advised to have light activity at home after discharge and then meet with a dentist private practice as an outpatient. I discussed the plan with Dr. Hunter today. (3) COLLEEN on CPAP Impression: Plan: Cont her home CPAP device here (4) Hypotension Impression: Resolved with blood transfusions and crystalloid IV resuscitation Plan: Cont present meds and plan (5) ST segment elevation Impression: Resolved in OR, after her hypotension was corrected - Current Meds Current Meds: Current Medications Generic Name Dose Route Start Last Admin Trade Name Freq PRN Reason Stop Dose Admin Aspirin 81 mg 03/16/23 09:00 03/16/23 08:14 Aspirin Ec 81 Mg Tablet PO 81 mg DAILY MARIE Administration Carvedilol 3.125 mg 03/15/23 21:00 03/16/23 08:14 Carvedilol 3.125 Mg Tablet PO 3.125 mg BID MARIE Administration Famotidine 20 mg 03/14/23 10:00 03/16/23 08:14 Famotidine 20 Mg/2 Ml Vial IVP 20 mg BID MARIE Administration Fentanyl 50 mcg 03/14/23 14:09 03/15/23 20:55 Fentanyl 100 Mcg/2 Ml Vial IVP 50 mcg Q1HR PRN Administration Severe Pain (Level 7-10) Sodium Chloride 1,000 mls @ 100 mls/hr 03/14/23 10:00 03/16/23 13:45 Normal Saline 0.9% IV Not Given .Q10H MARIE Morphine Sulfate 2 mg 03/14/23 14:08 03/15/23 19:51 Morphine 2 Mg/Ml Carpuject IVP 2 mg Q1HR PRN Administration PAIN 5-7 Nicotine 1 patch 03/15/23 15:30 03/16/23 08:18 Nicotine 21 Mg Patch TOP Not Given DAILY MARIE Oxycodone HCl 5 mg 03/15/23 11:12 03/16/23 10:40 Oxycodone 5 Mg Tablet PO 5 mg Q4HR PRN Administration Moderate Pain (Level 4-6) Sodium Chloride 10 ml 03/14/23 17:00 03/16/23 08:14 Sodium Chloride Flush 0.9% 10 Ml Syringe IVP 10 ml 0100,0900,1700 MARIE Administration Sodium Phosphate 250 mg 03/16/23 12:00 03/16/23 11:57 Neutra-Phos 250 Mg Tablet PO 03/17/23 11:00 250 mg TIDWM MARIE Administration - Lab Result Fish Bone Diagrams: 03/16/23 09:41 03/16/23 04:28 - Additional Planning My Orders: My Active Orders 03/15/23 21:00 carvediloL [Coreg] 3.125 mg PO BID 03/16/23 09:00 Aspirin EC [Ecotrin] 81 mg PO DAILY 03/16/23 12:00 Neutra-Phos [K-Phos Neutral] 250 mg PO TIDWM 03/17/23 05:00 CBC - COMP BLD CT W/AUTO DIFF [HEME] DAILYLAB 03/18/23 05:00 CBC - COMP BLD CT W/AUTO DIFF [HEME] DAILYLAB 03/19/23 05:00 CBC - COMP BLD CT W/AUTO DIFF [HEME] DAILYLAB Subjective - Subjective Patient Reports: Feeling Better Objective Vital Signs: Vital Signs - 24 hr 03/15/23 03/15/23 03/16/23 17:00 20:06 00:53 Temperature 37.2 C 37.4 C 37.3 C Heart Rate [ 106 H 105 H 107 H Monitoring electrodes] Respiratory 26 H 15 30 H Rate Blood Pressure 132/66 H 108/76 135/56 H [Right Brachial artery] O2 Saturation 97 92 92 03/16/23 03/16/23 03/16/23 04:48 08:38 13:00 Temperature 37.0 C 36.9 C 36.8 C Heart Rate [ 105 H 101 H 93 Monitoring electrodes] Respiratory 18 19 16 Rate Blood Pressure 133/81 H 120/71 123/67 [Right Brachial artery] O2 Saturation 93 93 93 Oxygen O2 Source Room air I&O (Last 24 Hrs): Intake and Output Totals x24h 03/14/23 03/15/23 03/16/23 23:59 23:59 23:59 Intake Total 680 3348.333 2451.667 Output Total 2120 2060 2 Balance -1440 9340.149 7924.667 General: Other (Asleep, and was not awoken) HEENT: Mucous membr. moist/pink Cardiovascular: Regular rate Respiratory: No respiratory distress Extremities: No edema - Results Results: Laboratory Results WBC 11.2 x10^3/uL (4.8-10.8) H 03/16/23 09:41 RBC 3.28 10^6/uL (4.20-5.40) L 03/16/23 09:41 Hgb 9.9 g/dL (12.0-16.0) L 03/16/23 09:41 Hct 31.3 % (37.0-47.0) L 03/16/23 09:41 MCV 95.4 fL (81.0-99.0) 03/16/23 09:41 MCH 30.2 pg (27.0-31.0) 03/16/23 09:41 MCHC 31.6 g/dL (32.0-36.0) L 03/16/23 09:41 RDW 13.8 % (12.0-15.0) 03/16/23 09:41 Plt Count 147 10^3/uL (130-450) 03/16/23 09:41 MPV 10.3 fL (7.9-10.8) 03/16/23 09:41 Neut # (Auto) 8.5 10^3/uL (1.5-6.6) H 03/16/23 09:41 Lymph # (Auto) 1.7 10^3/uL (1.5-3.5) 03/16/23 09:41 [place] # (Auto) 1.0 10^3/uL (0.0-1.0) 03/16/23 09:41 Eos # (Auto) 0.0 10^3/uL (0.0-0.7) 03/16/23 09:41 Baso # (Auto) 0.0 10^3/uL (0.0-0.1) 03/16/23 09:41 Absolute Nucleated RBC 0.00 x10^3/uL 03/16/23 09:41 Band Neuts % (Manual) Not Reportable 03/14/23 11:01 Abnorm Lymph % (Manual) Not Reportable 03/14/23 11:01 Nucleated RBC % 0.0 /100WBC 03/16/23 09:41 Neutrophils # (Manual) Not Reportable 03/14/23 11:01 Lymphocytes # (Manual) Not Reportable 03/14/23 11:01 Monocytes # (Manual) Not Reportable 03/14/23 11:01 Eosinophils # (Manual) Not Reportable 03/14/23 11:01 Basophils # (Manual) Not Reportable 03/14/23 11:01 Differential Comment MANUAL=AUTO DIFF 03/14/23 11:01 Platelet Morphology NORMAL APPEARANCE (NORMAL) 03/14/23 11:01 RBC Morph Micro Appear NORMAL APPEARANCE (NORMAL) 03/14/23 11:01 PT 11.9 secs (9.9-12.6) 03/14/23 11:01 INR 1.1 (0.8-1.2) 03/14/23 11:01 VBG pH 7.450 (7.31-7.41) H 03/16/23 04:28 Ionized Calcium 1.13 mmol/L (1.15-1.33) L 03/16/23 04:28 Sodium 139 mmol/L (135-145) 03/16/23 04:28 Potassium 4.2 mmol/L (3.5-4.5) 03/16/23 04:28 Chloride 109 mmol/L (101-111) 03/16/23 04:28 Carbon Dioxide 25 mmol/L (21-32) 03/16/23 04:28 Anion Gap 5.0 (6-13) L 03/16/23 04:28 BUN 9 mg/dL (6-20) 03/16/23 04:28 Creatinine 0.9 mg/dL (0.6-1.3) 03/16/23 04:28 Estimated GFR (MDRD) 63 (>89) L 03/16/23 04:28 Glucose 109 mg/dL (74-104) H 03/16/23 04:28 Calcium 8.9 mg/dL (8.5-10.3) 03/16/23 04:28 Ionized Calcium NO 03/14/23 17:19 Phosphorus 1.8 mg/dL (2.5-5.0) L 03/16/23 04:28 Magnesium 2.1 mg/dL (1.7-2.3) 03/15/23 04:35 Total Bilirubin 1.1 mg/dL (0.2-1.0) H 03/16/23 04:28 AST 43 IU/L (10-42) H 03/16/23 04:28 ALT 32 IU/L (10-60) 03/16/23 04:28 Alkaline Phosphatase 57 IU/L (42-121) 03/16/23 04:28 Troponin I High Sens 61.3 ng/L (2.3-14.8) H* 03/15/23 19:01 Total Protein 5.4 g/dL (6.4-8.9) L 03/16/23 04:28 Albumin 3.3 g/dL (3.2-5.5) 03/16/23 04:28 Globulin 2.1 g/dL (2.1-4.2) 03/16/23 04:28 Albumin/Globulin Ratio 1.6 (1.0-2.2) 03/16/23 04:28 Triglycerides 74 mg/dL (48-352) 03/16/23 04:28 Cholesterol 118 mg/dL (-200) 03/16/23 04:28 LDL Cholesterol, Calc 66 mg/dL (-129) 03/16/23 04:28 VLDL Cholesterol 15 mg/dL 03/16/23 04:28 HDL Cholesterol 37 mg/dL (60-) L 03/16/23 04:28 LDL/HDL Ratio 1.8 (<4.4) 03/16/23 04:28 Cholesterol/HDL Ratio 3.2 (<4.4) 03/16/23 04:28 Nasal Screen MRSA (PCR) NEGATIVE (NEGATIVE) 03/14/23 10:40 Blood Type O POSITIVE 03/14/23 08:59 Blood Type Recheck O POSITIVE 03/14/23 11:01 Antibody Screen NEGATIVE 03/14/23 08:59 Crossmatch IS Only See Detail 03/14/23 08:59 Crossmatch IS Only See Detail 03/14/23 08:59 - Procedures Procedures: Procedures CLOSED ENDOSCOPIC BIOPSY OF LARGE INTESTINE (05/19/14) ENDO RECTUM POLYPECTOMY (05/19/14) ESOPHAGOGASTRODUODENOSCOPY [EGD] W/CLOSED BIOPSY (05/19/14)
[2023-03-16] MEDS ORDERED: SODIUM CHLORIDE 0.9% 1,000 ML IV SCH (14:59)
--- NOTE | 2023-03-16 15:03 | PROVIDER PROGRESS NOTE ---
Subjective - General Admit Date: 03/14/23 Procedure Date: 03/14/23 Post Op Days: 2 Procedure Performed: Open cholecystectomy converted from laparoscopic for bleeding and cardiac i - Review of Systems Wound/Incisions: positive: Dressing dry and intact General: positive: No symptoms HEENT: positive: No symptoms Pulmonary: positive: No symptoms Cardiovascular: positive: No symptoms Gastrointestinal: positive: Abdominal pain (Postoperative incisional.). negative: Nausea, Vomiting Genitourinary: positive: No symptoms Musculoskeletal: positive: No symptoms Skin: positive: No symptoms Psychiatric: positive: No symptoms All Other Systems: positive: Other (Unable to obtain due to pt w/ post-op obtundation) Objective - Patient Data Reviewed Vital Signs: Yes Vital Signs: Vital Signs x48h Temp Pulse Resp BP Pulse Ox 03/16/23 13:00 36.8 C 93 16 123/67 93 03/16/23 08:38 36.9 C 101 H 19 120/71 93 Weight: Weight 03/14/23 03/15/23 03/16/23 23:59 23:59 23:59 Weight (kg) 76 kg 78 kg 80 kg Intake & Output: Intake and Output Totals x24h 03/14/23 03/15/23 03/16/23 23:59 23:59 23:59 Intake Total 680 3348.333 2451.667 Output Total 2120 2060 2 Balance -1440 7165.637 3585.667 - Lab Results Lab Results: 03/16/23 09:41 03/16/23 04:28 Other Lab Results: Lab Results x24hrs 03/16/23 03/16/23 03/16/23 Range/Units 09:41 04:28 04:28 WBC 11.2 H (4.8-10.8) x10^3/uL RBC 3.28 L (4.20-5.40) 10^6/uL Hgb 9.9 L (12.0-16.0) g/dL Hct 31.3 L (37.0-47.0) % MCV 95.4 (81.0-99.0) fL MCH 30.2 (27.0-31.0) pg MCHC 31.6 L (32.0-36.0) g/dL RDW 13.8 (12.0-15.0) % Plt Count 147 (130-450) 10^3/uL MPV 10.3 (7.9-10.8) fL Neut # (Auto) 8.5 H (1.5-6.6) 10^3/uL Lymph # (Auto) 1.7 (1.5-3.5) 10^3/uL [place] # (Auto) 1.0 (0.0-1.0) 10^3/uL Eos # (Auto) 0.0 (0.0-0.7) 10^3/uL Baso # (Auto) 0.0 (0.0-0.1) 10^3/uL Absolute Nucleated RBC 0.00 x10^3/uL Nucleated RBC % 0.0 /100WBC VBG pH 7.450 H (7.31-7.41) Ionized Calcium 1.13 L (1.15-1.33) mmol/L Sodium (135-145) mmol/L Potassium (3.5-4.5) mmol/L Chloride (101-111) mmol/L Carbon Dioxide (21-32) mmol/L Anion Gap (6-13) BUN (6-20) mg/dL Creatinine (0.6-1.3) mg/dL Estimated GFR (MDRD) (>89) Glucose (74-104) mg/dL Calcium (8.5-10.3) mg/dL Phosphorus (2.5-5.0) mg/dL Total Bilirubin (0.2-1.0) mg/dL AST (10-42) IU/L ALT (10-60) IU/L Alkaline Phosphatase (42-121) IU/L Troponin I High Sens (2.3-14.8) ng/L Total Protein (6.4-8.9) g/dL Albumin (3.2-5.5) g/dL Globulin (2.1-4.2) g/dL Albumin/Globulin Ratio (1.0-2.2) Triglycerides 74 (48-352) mg/dL Cholesterol 118 ( - 200) mg/dL LDL Cholesterol, Calc 66 ( - 129) mg/dL VLDL Cholesterol 15 mg/dL HDL Cholesterol 37 L (60 - ) mg/dL LDL/HDL Ratio 1.8 (<4.4) Cholesterol/HDL Ratio 3.2 (<4.4) 1003/15/23 03/15/23 Range/Units 04:28 19:01 15:54 WBC (4.8-10.8) x10^3/uL RBC (4.20-5.40) 10^6/uL Hgb 11.4 L (12.0-16.0) g/dL Hct (37.0-47.0) % MCV (81.0-99.0) fL MCH (27.0-31.0) pg MCHC (32.0-36.0) g/dL RDW (12.0-15.0) % Plt Count (130-450) 10^3/uL MPV (7.9-10.8) fL Neut # (Auto) (1.5-6.6) 10^3/uL Lymph # (Auto) (1.5-3.5) 10^3/uL [place] # (Auto) (0.0-1.0) 10^3/uL Eos # (Auto) (0.0-0.7) 10^3/uL Baso # (Auto) (0.0-0.1) 10^3/uL Absolute Nucleated RBC x10^3/uL Nucleated RBC % /100WBC VBG pH (7.31-7.41) Ionized Calcium (1.15-1.33) mmol/L Sodium 139 (135-145) mmol/L Potassium 4.2 (3.5-4.5) mmol/L Chloride 109 (101-111) mmol/L Carbon Dioxide 25 (21-32) mmol/L Anion Gap 5.0 L (6-13) BUN 9 (6-20) mg/dL Creatinine 0.9 (0.6-1.3) mg/dL Estimated GFR (MDRD) 63 L (>89) Glucose 109 H (74-104) mg/dL Calcium 8.9 (8.5-10.3) mg/dL Phosphorus 1.8 L (2.5-5.0) mg/dL Total Bilirubin 1.1 H (0.2-1.0) mg/dL AST 43 H (10-42) IU/L ALT 32 (10-60) IU/L Alkaline Phosphatase 57 (42-121) IU/L Troponin I High Sens 61.3 H* (2.3-14.8) ng/L Total Protein 5.4 L (6.4-8.9) g/dL Albumin 3.3 (3.2-5.5) g/dL Globulin 2.1 (2.1-4.2) g/dL Albumin/Globulin Ratio 1.6 (1.0-2.2) Triglycerides (48-352) mg/dL Cholesterol ( - 200) mg/dL LDL Cholesterol, Calc ( - 129) mg/dL VLDL Cholesterol mg/dL HDL Cholesterol (60 - ) mg/dL LDL/HDL Ratio (<4.4) Cholesterol/HDL Ratio (<4.4) - Current Medications Current Medications: Current Medications Generic Name Dose Route Start Last Admin Trade Name Freq PRN Reason Stop Dose Admin Aspirin 81 mg 03/16/23 09:00 03/16/23 08:14 Aspirin Ec 81 Mg Tablet PO 81 mg DAILY MARIE Administration Carvedilol 3.125 mg 03/15/23 21:00 03/16/23 08:14 Carvedilol 3.125 Mg Tablet PO 3.125 mg BID MARIE Administration Famotidine 20 mg 03/14/23 10:00 03/16/23 08:14 Famotidine 20 Mg/2 Ml Vial IVP 20 mg BID MARIE Administration Fentanyl 50 mcg 03/14/23 14:09 03/15/23 20:55 Fentanyl 100 Mcg/2 Ml Vial IVP 50 mcg Q1HR PRN Administration Severe Pain (Level 7-10) Morphine Sulfate 2 mg 03/14/23 14:08 03/15/23 19:51 Morphine 2 Mg/Ml Carpuject IVP 2 mg Q1HR PRN Administration PAIN 5-7 Oxycodone HCl 5 mg 03/15/23 11:12 03/16/23 10:40 Oxycodone 5 Mg Tablet PO 5 mg Q4HR PRN Administration Moderate Pain (Level 4-6) Sodium Chloride 10 ml 03/14/23 17:00 03/16/23 08:14 Sodium Chloride Flush 0.9% 10 Ml Syringe IVP 10 ml 0100,0900,1700 [facility] Administration Sodium Phosphate 250 mg 03/16/23 12:00 03/16/23 11:57 Neutra-Phos 250 Mg Tablet PO 03/17/23 11:00 250 mg TIDWM MARIE Administration - Physical Exam Wound/Incisions: positive: Dressing dry and intact, Other (Dressing at umbilicus removed.) General Appearance: positive: No acute distress Eyes Bilateral: positive: No lid inflammation, Conjunctivae nml, No scleral icterus ENT: positive: No signs of dehydration Neck: positive: Trachea midline Respiratory: positive: Chest non-tender, No respiratory distress, Breath sounds nml Cardiovascular: positive: Regular rate & rhythm, Systolic murmur Abdomen: positive: Tenderness (Incisional.) Skin: positive: Color nml, No rash, Warm, Dry Extremities: positive: Non-tender, Full ROM, Nml appearance Neurologic/Psychiatric: positive: Oriented x3, Motor nml, Sensation nml ABX Reporting Has patient been on IV antibiotics over the past 48 hours?: No Impression/Plan - Problem List Problem List: D2 s/p open cholecystectomy converted from laparoscopic for bleeding with cardiac instability 1) FEN Will decrease IVF and watch po intake. No immediate need for electrolyte replacement. 2) Bleeding Stable without evidence of ongoing blood loss. Drop in H&H likely equilibration. 3) Cardiac Truly appreciate Dr. Cadena's involvement and input. After my discussion with Dr. Cadena and a review of the labs it is clear that patient had an myocardial infarction. There is no evidence of ongoing ischemia Patient declined nicotine patch stating that she did not need it. Carvedilol started. 4) Activity The incision used for an open cholecystectomy is half of the most painful incision made in all of general surgery so there is no question about the patient's discomfort. Oral pain medications have been prescribed with IV opiates for breakthrough pain. Patient ambulating and avoiding IV opiates. Shower in AM. 5) ID No indication of infection - no antibiotics indicated. 6) Wound Silver dressings CAN be left on for 2 weeks. That is not what is going to happen here - I will remove prior to discharge or in office. Dressing removed from umbilicus - do not replace. Plan D/C in AM if continued improved.
[2023-03-16] MEDS: polyethylene glycoL 3350 17 GM PACKET PO SCH (18:58)
[2023-03-16] MEDS: DOCUSATE SODIUM 250 MG CAPSULE PO SCH (18:58)
[2023-03-16] MEDS: SENNA 8.6 MG TABLET PO SCH (18:59)
[2023-03-16] MEDS: ACETAMINOPHEN 325 MG TABLET PO PRN (20:30)
[2023-03-17] MEDS: ACETAMINOPHEN 325 MG TABLET PO PRN (00:38)
[2023-03-17] MEDS: SODIUM CHLORIDE FLUSH 0.9% 10 ML SYRINGE IVP SCH ×2 (00:52→08:50)
[2023-03-17 05:01] LABS: BASOPHILS # (AUTO) 0.1 10^3/uL (0.0-0.1); BASOPHILS % (AUTO) 0.6 %; EOSINOPHILS # (AUTO) 0.1 10^3/uL (0.0-0.7); EOSINOPHILS % (AUTO) 1.1 %; HCT - HEMATOCRIT 30.4 % (37.0-47.0); HGB - HEMOGLOBIN 9.7 g/dL (12.0-16.0); LYMPHOCYTES # (AUTO) 2.5 10^3/uL (1.5-3.5); LYMPHOCYTES % (AUTO) 29.4 %; MEAN CORPUSCULAR HEMOGLOBIN 30.2 pg (27.0-31.0); MEAN CORPUSCULAR HGB CONC 31.9 g/dL (32.0-36.0); MEAN CORPUSCULAR VOLUME 94.7 fL (81.0-99.0); MEAN PLATELET VOLUME 10.5 fL (7.9-10.8); MONOCYTES # (AUTO) 0.8 10^3/uL (0.0-1.0); NEUTROPHILS % (AUTO) 59.7 %; PLT - PLATELET COUNT 156 10^3/uL (130-450); RED BLOOD COUNT 3.21 10^6/uL (4.20-5.40); RED CELL DISTRIBUTION WIDTH 13.5 % (12.0-15.0); WHITE BLOOD COUNT 8.3 x10^3/uL (4.8-10.8)
[2023-03-17 05:29] LABS: CALCIUM, IONIZED 1.13 mmol/L (1.15-1.33); VBG PH 7.453 (7.31-7.41)
[2023-03-17 06:35] LABS: ALBUMIN 3.2 g/dL (3.2-5.5); ALBUMIN/GLOBULIN RATIO 1.5 (1.0-2.2); BILIRUBIN,TOTAL 1.2 mg/dL (0.2-1.0); CALCIUM 8.9 mg/dL (8.5-10.3); CREATININE 0.8 mg/dL (0.6-1.3); PHOSPHORUS 2.7 mg/dL (2.5-5.0); POTASSIUM 3.6 mmol/L (3.5-4.5); TOTAL PROTEIN 5.3 g/dL (6.4-8.9)
[2023-03-17] MEDS: SENNA 8.6 MG TABLET PO SCH (08:49)
[2023-03-17] MEDS: ASPIRIN EC 81 MG TABLET PO SCH (08:49)
[2023-03-17] MEDS: polyethylene glycoL 3350 17 GM PACKET PO SCH (08:49)
[2023-03-17] MEDS: carvediloL 3.125 MG TABLET PO SCH (08:49)
[2023-03-17] MEDS: DOCUSATE SODIUM 250 MG CAPSULE PO SCH (08:49)
[2023-03-17] MEDS: FAMOTIDINE 20 MG/2 ML VIAL IVP SCH (08:49)
[2023-03-17] MEDS: NEUTRA-PHOS 250 MG TABLET PO SCH (08:49)
--- NOTE | 2023-03-17 09:25 | DISCHARGE SUMMARY ---
"Discharge Summary Admit Date: 03/14/23 Discharge Date: 03/17/23 Discharging Provider: MD Elsa Primary Care Provider: Zoë Code Status: Attempt Resuscitation Condition at Discharge: Good Discharge Disposition: 01 Home, Self Care - DIAGNOSES Admission Diagnoses: Symptomatic cholelithiasis Discharge Diagnoses with Status of Each Condition: Symptomatic cholelithiasis cured with cholecystectomy - complicated by intraoperative bleeding and myocardial ischemia - cardiac ischemia and bleeding resolved. - HPI History of Present Illness: Patient is a 63 year old smoker with a history of RUQ pain accompanied by dilated common bile duct. [place], MRCP, ERCP with endoscopic ultrasound did not reveal a source for the dilation. Patient with known gallstones and symptoms consistent with biliary colic. - CONSULTS | PROCEDURES Consultations: Dr. Cadena Procedures: Open cholecystectomy converted from open for bleeding and cardiac ischemia - HOSPITAL COURSE Hospital Course: Uncomplicated in the sense that patient was admitted to the ICU following surgery. Dr. Cadena consulted regarding cardiac issues. Prompt identification and treatment of ischemia and bleeding. Very mild WI documented with doubling of troponins but no apparent effect on ECHO. Patient has stopped smoking and has declined patches. After 3 days no evidence of ongoing bleeding or cardiac ischemia. Patient tolerating general diet. Ambulating. Pain contr olled with oral pain medications. - ALLERGIES Allergies/Adverse Reactions: Allergies Allergy/AdvReac Type Severity Reaction Status Date / Time No Known Drug Allergies Allergy Verified 10/20/22 14:34 - MEDICATIONS Home Medications: Ambulatory Orders Medication Instructions Recorded Confirmed Omeprazole [Prilosec] 40 mg PO DAILY 05/19/14 03/14/23 Aspirin EC [Ecotrin] 81 mg PO DAILY #30 tab 03/17/23 Docusate Sodium 250Mg Capsule 250 - 500 mg PO DAILY #20 cap 03/17/23 [Colace 250Mg Capsule] carvediloL [Coreg] 3.125 mg PO BID #60 tab 03/17/23 oxyCODONE [Roxicodone] 5 mg PO Q4HR PRN #12 tab 03/17/23 - PHYSICAL EXAM AT DISCHARGE General Appearance: positive: No acute distress Eyes Bilateral: positive: No lid inflammation, Conjunctivae nml, No scleral icterus ENT: positive: No signs of dehydration Neck: positive: Trachea midline Respiratory: positive: Chest non-tender, No respiratory distress, Breath sounds nml Cardiovascular: positive: Regular rate & rhythm Abdomen: positive: Tenderness (Incisional - silver imed dressing in place.) Skin: positive: Color nml, Warm, Dry Neurologic/Psychiatric: positive: Oriented x3, Motor nml, Sensation nml, Mood/affect nml - LABS Result Diagrams: 03/17/23 04:37 03/17/23 04:37 - DIAGNOSTIC IMAGING Diagnostic Imaging Results: Final report reviewed (Postoperative film showed to foreign body.) - QUALITY (Female Hip Fx Only) Was patient sent home on osteoporosis medication?: No - FOLLOW UP Follow Up: Dustin Hunter in 7-10 days for staple removal, wound check and first postoperative visit. Patient should absolutely follow up with appliances sample maker in next 2-4 weeks. - TIME SPENT Time Spent in Discharge (Minutes): 45"
--- NOTE | 2023-03-17 11:50 | Discharge Plan ---
Discharge Plan Problem Reviewed?: Yes Disposition: Home, Self Care Condition: Good Prescriptions: oxyCODONE [Roxicodone] 5 mg PO Q4HR PRN #12 tab PRN Reason: Moderate Pain (Level 4-6) Docusate Sodium 250Mg Capsule [Colace 250Mg Capsule] 250 - 500 mg PO DAILY #20 cap carvediloL [Coreg] 3.125 mg PO BID #60 tab Aspirin EC [Ecotrin] 81 mg PO DAILY #30 tab Diet: Regular Activity Restrictions: No strenuous activity. Shower Restrictions: No Driving Restrictions: Yes (While on pain medications.) Weight Bearing: Full Weight Instruction Topics: Carvedilol tablets Health Concerns: Patient MUST follow up with dado operator hopefully sooner than 6-8 weeks. Additional Instructions or Follow Up instructions: Call with surgical questions and/or concerns. No Smoking: If you smoke, Please STOP! Call for help. Follow-up with: Belkys Camp PA-C [Primary Care Provider] - Dustin Hunter MD [Provider Admit Priv/Credential] -
[2023-03-17 14:28] VITALS: BP 111/63; O2SAT 94
== END 2023-03-17 14:00 | disposition home or self-care (01) | DRG 981 ==
LOC: SDS 06:19 → ICU 09:22 → MS3 03-16 17:19
PROVIDERS: ADMIT Surgery; ATTEND Surgery
PROC: 0FJ44ZZ Inspection of Gallbladder, Percutaneous Endoscopic Approach (ICD-10-PCS; 2023-03-14)
PROC: 0FT40ZZ Resection of Gallbladder, Open Approach (ICD-10-PCS; principal; 2023-03-14 07:30)
DX: I97.791 Other intraoperative cardiac functional disturbances during other surgery (principal); I21.4 Non-ST elevation (NSTEMI) myocardial infarction; K91.61 Intraoperative hemorrhage and hematoma of a digestive system organ or structure complicating a digestive system procedure; I95.89 Other hypotension; G47.33 Obstructive sleep apnea (adult) (pediatric); J43.9 Emphysema, unspecified; J44.89 Other specified chronic obstructive pulmonary disease; K80.20 Calculus of gallbladder without cholecystitis without obstruction; F17.200 Nicotine dependence, unspecified, uncomplicated
CPT/HCPCS: 36415; 74018; 80048; 80053; 80061; 82330; 83735; 84100; 84484; 85018; 85025; 85610; 86850; 86900; 86901; 86920; 87150; 93005; 93306; A9270; J1170; J2274; J3490; J7120; P9016; 83721

== ENCOUNTER 2023-04-18 09:23 | Outpatient (CLI) | payer OTHER ==
--- NOTE | 2023-04-19 15:36 | Mammography Report ---
BILATERAL DIGITAL SCREENING MAMMOGRAM 3D/2D: 04/18/2023 CLINICAL: Routine screening. Comparison is made to exams dated: 04/04/2022 mammogram, 04/26/2021 mammogram, and 03/20/2020 mammogr am - [facility]. There are scattered areas of fibroglandular density in both breasts (category b / 25%-50% glandular t issue). No significant masses, calcifications, or other findings are seen in either breast. There has been no significant interval change. IMPRESSION: NEGATIVE There is no mammographic evidence of malignancy. A 1 year screening mammogram is recommended. Based on the Tyrer Cuzick model (a risk assessment model) the patients lifetime risk is 11.7% and he r 10 year risk is 5.5%. According to the ACR, ACS, and NCCN guidelines, an annual breast MRI exam gorge ng with mammogram is recommended if the patients lifetime risk is 20% or greater. This exam was interpreted at Station ID: [id number]. NOTE: For mammograms, a report in lay terms will be sent to the patient. Approximately 15% of breast malignancies will not be visualized mammographically. In the management of a palpable breast mass, a negative mammogram must not discourage biopsy of a clinically suspicious lesion. Electronically Signed By: Asher moraes/taisha:04/18/2023 16:13:21 letter sent: No_Letter ACR BI-RADS Category 1: Negative 3341F PARENCHYMAL PATTERN: (A) - The breast(s) demonstrate(s) scattered fibroglandular densities. BI-RADS CATEGORY: (1) - 1 Mammogram [id number] 1 year screening LATERALITY: (B)
== END 2023-04-18 09:24 | disposition home or self-care (01) ==
LOC: DI 09:23
DX: Z12.31 Encounter for screening mammogram for malignant neoplasm of breast (principal); R92.323 Mammographic fibroglandular density, bilateral breasts

== ENCOUNTER 2023-04-29 12:34 | Outpatient (CLI) | payer OTHER ==
--- NOTE | 2023-04-30 18:34 | CT Report ---
PROCEDURE: Low Dose Lung Cancer Screen INDICATIONS: TOBACCO DEPENDENCE TECHNIQUE: A CT scan of the chest was performed. Intravenous contrast media was not administered. Images were re corded and evaluated at appropriate window settings. Reformats: axial MIP of the chest, coronal and s agittal. For radiation dose reduction, the following was used: automated exposure control, adjustment of mA and/or kV according to patient size. COMPARISON: Low-dose chest CT dated 05/10/2022 04/27/2021 FINDINGS: Image quality: Excellent. Prior cancer history: Unsure. Lungs and pleura: No pleural effusions. No pneumothorax. There is a 4 mm right apical pulmonary nodu le which is unchanged from the study dated 04/27/2021. Mild paraseptal emphysema at the apices. Mediastinum: Heart size is normal. No pericardial effusion. No large vessel abnormality. No mediastin al adenopathy by size criteria. Chest wall and lower neck: Thyroid is unremarkable. No axillary or supraclavicular adenopathy by size . Bones: No aggressive osseous abnormality. Upper Abdomen: Unremarkable. Low-density cystic lesion is present within the left hepatic lobe. IMPRESSION: Lung RAD: 1 - Negative. Recommendation: Continue annual screening in 12 Months with LDCT Non-Lung Significant Findings: None. Reviewed by: Kerrie Galvan MD on 04/30/2023 6:32 PM PST Approved by: Kerrie Galvan MD on 04/30/2023 6:32 PM PST Station ID: [id number]
== END 2023-04-29 12:35 | disposition home or self-care (01) ==
LOC: DI 12:34
PROVIDERS: ATTEND Physician Assistant
DX: Z12.2 Encounter for screening for malignant neoplasm of respiratory organs (principal); F17.290 Nicotine dependence, other tobacco product, uncomplicated; R91.1 Solitary pulmonary nodule; J43.9 Emphysema, unspecified

== ENCOUNTER 2023-07-18 19:34 | Outpatient (CLI) | payer OTHER | END 2023-07-18 23:59 | disposition critical access hospital (66) | LOC: EMS 19:34 | DX: R07.89 Other chest pain (principal); R10.13 Epigastric pain; R11.0 Nausea; R06.02 Shortness of breath; R61 Generalized hyperhidrosis; R42 Dizziness and giddiness; F10.90 Alcohol use, unspecified, uncomplicated | CPT/HCPCS: A0425; A0429 ==

== ENCOUNTER 2023-07-18 19:52 | Emergency (ER) | payer OTHER ==
--- NOTE | 2023-07-18 20:08 | ED Physician Documentation ---
PD HPI CHEST PAIN - Stated complaint Stated Complaint: CP - Chief complaint Chief Complaint: Cardiac - History obtained from History obtained from: Patient - Additional information Additional information: 63-year-old female with history ofTobacco use presents by EMS from home for chest pain and pressure that began approximately 1 hour prior to arrival. Patient states that she has been under significant stress the last few days and to take the edge off tonight she took several shots of fireball whiskey. She began to feel very "panicky" and began to feel chest tightness and pressure. She called her son, who called 911. EMS administered aspirin in route. On arrival patient stated she felt much better, states that her pain and other symptoms have resolved. Reports a history of heart problems following a gallbladder surgery in February 2023. Record review shows that there was involvement of the artery that led to brief cardiac ischemia, however subsequent echoes were normal with no wall motion abnormality. Patient denies history of coronary stents. Review of Systems Constitutional: denies: Fever, Chills Cardiac: reports: Chest pain / pressure. denies: Palpitations, Calf pain Respiratory: denies: Dyspnea, Cough, Wheezing GI: denies: Abdominal Pain, Nausea, Vomiting : denies: Dysuria, Frequency, Hesitancy Neurologic: denies: Generalized weakness, Focal weakness, Numbness Psychiatric: reports: Anxiety. 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 - Present Medications Home Medications: Ambulatory Orders Medication Instructions Recorded Confirmed Omeprazole [Prilosec] 40 mg PO DAILY 05/19/14 07/18/23 - Allergies Allergies/Adverse Reactions: Allergies Allergy/AdvReac Type Severity Reaction Status Date / Time No Known Drug Allergies Allergy Verified 07/18/23 20:00 - Social History Does the pt smoke?: Yes Smoking Status: Current every day smoker Does the pt drink ETOH?: Yes Does the pt have substance abuse?: No - Immunizations Immunizations: TDAP >10years/unknown - POLST Patient has POLST: No PD ED PE NORMAL - Vitals Vital signs reviewed: Yes - General General: Alert and oriented X 3, No acute distress, Well developed/nourished - HEENT HEENT: Atraumatic - Cardiac Cardiac: RRR, Strong equal pulses - Respiratory Respiratory: No respiratory distress, Clear bilaterally - Abdomen Abdomen: Soft, Non tender, Non distended - Derm Derm: Normal color, Warm and dry, No rash - Extremities Extremities: No deformity, No tenderness to palpate, Normal ROM s pain, No edema - Neuro Neuro: Alert and oriented X 3, 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, No motor deficit, Normal speech - Psych Psych: Normal mood, Normal affect Results - Vitals Vitals: Vital Signs - 24 hr 07/18/23 07/18/23 07/18/23 19:54 19:59 20:29 Temperature 36 C L Heart Rate 77 77 77 Respiratory 13 18 16 Rate Blood Pressure 137/84 H 128/78 125/77 O2 Saturation 97 96 92 07/18/23 07/18/23 20:30 21:16 Temperature Heart Rate 70 72 Respiratory 16 14 Rate Blood Pressure 125/77 114/78 O2 Saturation 91 L 92 Oxygen O2 Source Room air - Labs Labs: Laboratory Tests 07/18/23 07/18/23 20:16 20:16 WBC 7.5 RBC 5.07 Hgb 14.8 Hct 46.2 MCV 91.1 MCH 29.2 MCHC 32.0 RDW 13.9 Plt Count 244 MPV 9.8 Neut # (Auto) 4.0 Lymph # (Auto) 2.7 Door # (Auto) 0.5 Eos # (Auto) 0.2 Baso # (Auto) 0.1 Absolute Nucleated RBC 0.00 Nucleated RBC % 0.0 Sodium 140 Potassium 3.5 Chloride 106 Carbon Dioxide 28 Anion Gap 6.0 BUN 11 Creatinine 0.9 Estimated GFR (MDRD) 63 L Glucose 90 Calcium 9.6 Total Bilirubin 0.2 AST 20 ALT 16 Alkaline Phosphatase 70 Troponin I High Sens 2.4 Total Protein 7.2 Albumin 4.3 Globulin 2.9 Albumin/Globulin Ratio 1.5 Lipase 53 PD Medical Decision Making - ED course Complexity details: reviewed old records, reviewed results, re-evaluated patient, considered differential, d/w patient ED course: Well-appearing patient with chest pain after several days of stress and feeling panicky. She is currently pain-free. She reports a history of tobacco abuse but no other known cardiac risk factors. Patient reports a history of heart problems, however this was likely secondary to demand following bleeding postoperatively, no evidence of coronary disease or wall motion abnormalities on previous echocardiogram. EKG is normal sinus rhythm. Will order labs, chest x-ray, and will reassess. Laboratory work is entirely unremarkable, high-sensitivity troponin 2.4, which is the lowest limit of normal. Patient remains pain-free in the emergency department. Chest x-ray reviewed, unremarkable. Heart score is 2 based on age and tobacco use. Patient relieved, states she is ready to go home. She was advised to follow up with her PCP. Departure - Departure Disposition: Home, Self Care Clinical Impression: Chest pain Qualifiers: Chest pain type: unspecified Qualified Code(s): R07.9 - Chest pain, unspecified Condition: Stable Instructions: ED Chest Pain NonCardiac Comments: Your labs, chest x-ray, EKG were normal today. I do not suspect a heart attack at this time. Please follow-up with your primary care physician. Please return to the emergency department if you continue to experience new or worsening chest pains. Forms: PCP List Discharge Date/Time: 07/18/23 21:16
[2023-07-18 20:23] LABS: BASOPHILS # (AUTO) 0.1 10^3/uL (0.0-0.1); BASOPHILS % (AUTO) 0.8 %; EOSINOPHILS # (AUTO) 0.2 10^3/uL (0.0-0.7); EOSINOPHILS % (AUTO) 2.5 %; HCT - HEMATOCRIT 46.2 % (37.0-47.0); HGB - HEMOGLOBIN 14.8 g/dL (12.0-16.0); LYMPHOCYTES # (AUTO) 2.7 10^3/uL (1.5-3.5); LYMPHOCYTES % (AUTO) 36.6 %; MEAN CORPUSCULAR HEMOGLOBIN 29.2 pg (27.0-31.0); MEAN CORPUSCULAR VOLUME 91.1 fL (81.0-99.0); MEAN PLATELET VOLUME 9.8 fL (7.9-10.8); MONOCYTES # (AUTO) 0.5 10^3/uL (0.0-1.0); MONOCYTES % (AUTO) 6.7 %; NEUTROPHILS % (AUTO) 53.1 %; PLT - PLATELET COUNT 244 10^3/uL (130-450); RED BLOOD COUNT 5.07 10^6/uL (4.20-5.40); RED CELL DISTRIBUTION WIDTH 13.9 % (12.0-15.0); WHITE BLOOD COUNT 7.5 x10^3/uL (4.8-10.8)
[2023-07-18 20:41] LABS: ALBUMIN 4.3 g/dL (3.2-5.5); ALBUMIN/GLOBULIN RATIO 1.5 (1.0-2.2); BILIRUBIN,TOTAL 0.2 mg/dL (0.2-1.0); CALCIUM 9.6 mg/dL (8.5-10.3); CREATININE 0.9 mg/dL (0.6-1.3); POTASSIUM 3.5 mmol/L (3.5-4.5); TOTAL PROTEIN 7.2 g/dL (6.4-8.9)
[2023-07-18 21:03] LABS: TROPONIN I HIGH SENSITIVITY 2.4 ng/L (2.3-14.8)
[2023-07-18 21:22] VITALS: BP 114/78; O2SAT 92
--- NOTE | 2023-07-18 21:33 | XRAY Report ---
PROCEDURE: Chest 1V INDICATIONS: Chest pain TECHNIQUE: One view of the chest was acquired. COMPARISON: 03/14/2023 FINDINGS: Surgical changes and devices: None. Lungs and pleura: No pleural effusions or pneumothorax. Lungs are clear. Mediastinum: Mediastinal contours appear normal. Heart size is normal. Bones and chest wall: No suspicious bony lesions. Overlying soft tissues appear unremarkable. IMPRESSION: No acute cardiopulmonary process. Reviewed by: Dixon Fernandez MD on 07/18/2023 9:32 PM PST Approved by: Dixon Fernandez MD on 07/18/2023 9:32 PM [facility] Station ID: [id number]
== END 2023-07-18 21:16 | disposition home or self-care (01) ==
LOC: EDUNIT# → ED 19:52
DX: R07.9 Chest pain, unspecified (principal); J44.9 Chronic obstructive pulmonary disease, unspecified; F17.200 Nicotine dependence, unspecified, uncomplicated; Z79.899 Other long term (current) drug therapy
CPT/HCPCS: 36415; 80053; 83690; 84484; 85025; 93005; 99283; 99284

== ENCOUNTER 2023-08-03 13:46 | Emergency (ER) | payer OTHER ==
[2023-08-03 14:08] VITALS: O2SAT 98
--- NOTE | 2023-08-03 16:08 | ED Physician Documentation ---
History of Present Illness - Stated complaint Stated Complaint: HIGH BP,DIZZINESS - Chief complaint Chief Complaint: Cardiac - History obtained from History obtained from: Patient - Additonal information Additional information: Patient comes to the emergency department chief complaint of lightheadedness episodically, vertigo, and nausea. She also has noticed a moderately elevated blood pressure for the last 3 days. She states that she started taking rosuvastatin approximately 5 days ago but that she was having symptoms well before that. She has seen a rating officer already has not been able to find anything to explain the symptoms she has been having. Patient denies any new illnesses. No other complaints at this time. 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 - Present Medications Home Medications: Ambulatory Orders Medication Instructions Recorded Confirmed Omeprazole [Prilosec] 40 mg PO DAILY 05/19/14 08/03/23 Rosuvastatin Calcium [Crestor] 10 mg PO HS 08/03/23 08/03/23 - Allergies Allergies/Adverse Reactions: Allergies Allergy/AdvReac Type Severity Reaction Status Date / Time No Known Drug Allergies Allergy Verified 08/03/23 14:09 - Social History Does the pt smoke?: Yes Smoking Status: Current every day smoker Does the pt drink ETOH?: Yes Does the pt have substance abuse?: No - Immunizations Immunizations: TDAP >10years/unknown - POLST Patient has POLST: No PD ED PE NORMAL - Vitals Vital signs reviewed: Yes - General General: Alert and oriented X 3, No acute distress, Well developed/nourished - HEENT HEENT: Atraumatic, PERRL, EOMI, Moist mucous membranes - Neck Neck: Supple, no meningeal sign - Cardiac Cardiac: RRR, No murmur - Respiratory Respiratory: No respiratory distress, Clear bilaterally - Abdomen Abdomen: Soft, Non tender, Non distended - Derm Derm: Normal color, Warm and dry, No rash - Extremities Extremities: No deformity, No edema - Neuro Neuro: Alert and oriented X 3, rn registry 2-12 intact - Psych Psych: Normal mood, Normal affect Results - Vitals Vitals: Oxygen O2 Source Room air PD Medical Decision Making - ED course ED course: The patient's vital signs were unremarkable here and I discussed with her that she has already been extensively worked up for her symptoms previously. The patient is followed by cardiology and so far, workup has been negative. The patient has shown me her blood pressure logs for the last 3 days and her systolics have mostly ranged in the 140s to 150s. I have discussed with her that this could be temporary since its only been the last 3 days, or could be happening more chronically than she realizes. Either way, I have offered to start her on a low-dose antihypertensive, but the patient would rather wait till she sees her primary. I feel this is reasonable. The patient stable for discharge home. We have discussed the usual indications for return. Departure - Departure Disposition: 01 Home, Self Care Clinical Impression: Dizziness High blood pressure Qualifiers: Hypertension type: unspecified Qualified Code(s): I10 - Essential (primary) hypertension Condition: Stable Instructions: ED Dizziness UKO Comments: Your records have been reviewed. Your blood pressures were normal on your visit on July 18, as well as all of your blood work, including cardiac enzymes. You had a normal EKG at that time as well. It is not clear what has been causing the episodes of feeling dizzy, and it is not clear why you have been getting higher blood pressure readings for the last few days. Chronic hypertension does not arise over just a few days time, however, and there is no criteria upon which to diagnose she formally with hypertension at this point in time. It is also not clear if your blood pressure is elevated because you feel uncomfortable rather than feeling uncomfortable because your blood pressure is high. Checking your blood pressure multiple times can also create a sense of anxiety which will put your blood pressure up as well. All these things could be playing in and there is no way we will be able to sorted out in the emergency department. I have offered to put you on a low-dose of blood pressure medicine for now, but you would prefer to follow-up with your primary to discuss what to do. This is not unreasonable either, and you should call first thing tomorrow morning to make a the next available appointment to see your primary PA. Forms: PCP List Discharge Date/Time: 08/03/23 16:50
[2023-08-03 16:53] VITALS: BP 148/77
== END 2023-08-03 16:50 | disposition home or self-care (01) ==
LOC: ED 13:46
DX: I10 Essential (primary) hypertension (principal); R42 Dizziness and giddiness; F17.200 Nicotine dependence, unspecified, uncomplicated
CPT/HCPCS: 99282; 99283

== ENCOUNTER 2023-10-10 09:25 | Outpatient (CLI) | payer OTHER ==
--- NOTE | 2023-10-10 09:56 | Sleep Patient Instructions ---
Sleep Center Visit Summary - Patient Visit Information Reason for Visit: Annual follow-up - Patient Instructions Additional Instructions: You will continue with CPAP therapy with pressure set at 7-15 cmH2O. A supply prescription will be updated with your DME. We encourage you to continue to try to lose weight. Please follow up with the sleep care office in 1 year. - Clinic Information Contact: [facility] [address] [place] [address] [email or web address] T: [phone]
--- NOTE | 2023-10-10 09:59 | SLEEP CARE CONSULTATION ---
Information from patient questionnaire entered by Veronica Coto. I have reviewed and concur with the information entered by Veronica Coto. This document represents the service I personally performed and the decisions made by me, Cece Westbrook ARNP. History of Present Illness Service Date and Time: 10/10/2023924 Previous diagnosis: Moderate, Obstructive Sleep Apnea-Hypopnea Syndrome AHI: 18.2 Reason for follow up: annual (LAST SEEN 09/2022) Equipment type: CPAP (RODRIGUEZ Dreamwear 2, s/u 06/2019) Equipment obtained from: [employer] (getting supplies as needed) Mask style: Nasal Mask brand: Respironics (Dreamwear) Backup mask available: Yes Prior sleep studies: Yes Year and Where: 2019 [facility] additional information: DAHLIA MISHRA was diagnosed to have moderate, AHI 18.2, obstructive sleep apnea-hypopnea syndrome and returned today for CPAP therapy annual follow-up. Sleep Study - Results Prior sleep studies: Yes Year and Where: 2019 [facility] CPAP Compliance Data - Data Reviewed with Patient Average duration of nightly device use: 6 HRS 9 MINS 55 SEC Compliance rate %: 66.0 (10/04/22-10/03/23; 87.8% use in last 90 days) Current pressure setting (cmH2O): 7-15 Average residual AHI: 4.6 Central apnea: 1 Obstructive apnea: 1.7 Hypopnea: 1.9 Average large leak: 0 Subjective Missed days of use due to: reports: illness Patient concerns: reports: mask leak noise (shifting of nose pillow sometimes). denies: aerophagia, mask discomfort, air blowing in eyes, condensation in mask/hose, nasal congestion, dry mouth, nose, throat, epistaxis Observed to snore while using device: No Current pressure setting perceived as: comfortable On therapy, patient: reports: sleeping better, awakening more refreshed, being more awake and alert during the day, more rested overall. denies: drowsiness while driving Initial [place] Sleepiness Scale score: 10 (in 2008) Current [place] Sleepiness Scale score: 4 (10/10/23) Allergies and Home Medications Known drug allergies: No Drug allergies reviewed: Yes Home medication list reviewed: Yes (Rosuvastatin) Allergy and home medication list: Allergies No Known Drug Allergies Allergy (Verified 10/05/23 10:04) Review of Systems Review of systems same as previous: No (GALLBADDER SURGERY WITH COMPLICATIONS NICKED ARTERY CAUSED MINOR HEART ATT) Physical Exam Vital signs obtained and entered by: VERONICA Cárdenas MA Blood Pressure: 141/88 (LEFT ARM) Cuff size: regular Heart Rate: 70 O2 Saturation: 98 Height: 5 ft 4 in Weight: 179 lb 3.2 oz Body Mass Index: 30.7 BMI Classification: Obese Impression and Plan 1. Obstructive Sleep Apnea-Hypopnea Syndrome, moderate, with fair treatment compliance and good apnea control. On CPAP therapy, the patient has better sleep quality and is more rested overall. She went in for gallbladder surgery ended up in the ICU with complications including heart attack from blood loss. She went through a period of time she did not use her CPAP much but is back to using it 93% compliantly in the last 30 days. Patient has significant improvement of their sleep apnea and is satisfied with current CPAP therapy. Patient denies problems with oral dryness, nasal congestion, epistaxis, skin irritation or aerophagia. Patient's apnea severity and rationale for treatment to reduce apnea, improve sleep quality and reduce cardiovascular and cerebrovascular events was reviewed. I also reviewed the benefit of consistent device use of CPAP for gastric reflux, depression. 2. Obesity, unspecified. Currently patients BMI is 30.7. Obesity increases the risk of apnea, CPAP pressure requirements and overall health risks especially cardiovascular and diabetes. Thus patient is advised to lose weight. * Continue auto CPAP pressure at 7-15 cmH2O * Update supply prescription * Notify me if snoring with mask or feeling that the pressure is too much or too little * Attempt to lose weight * Call this office if any problems using CPAP * Return for follow up in 12 months, or sooner if concerns arise Counseling Topics: Spare mask, Weight loss health impact Prescriptions: Device supplies Follow up with Sleep Care in: 1 year Visit Type: In Office Time Spent with Patient (minutes): 20 Provider Statement: I spent 100% of the Face to Face Visit with the patient with greater than 50% spent counseling the patient and coordination of care.
[2023-10-10 10:03] VITALS: BP 141/88; O2SAT 98
== END 2023-10-10 09:26 | disposition home or self-care (01) ==
LOC: SC 09:25
PROVIDERS: ATTEND Nurse Practitioner Family
DX: G47.33 Obstructive sleep apnea (adult) (pediatric) (principal); E66.9 Obesity, unspecified; Z68.30 Body mass index [BMI] 30.0-30.9, adult
CPT/HCPCS: 99212; 99213